=== PATIENT | male | born 1955 | race American Indian/Alaskan Native ===

== ENCOUNTER 2016-10-07 15:36 | Inpatient (IN) | payer OTHER ==
[2016-10-07 17:30] LABS: Basophils % (Auto) 0.3 % (0.0-1.8); Eosinophils % (Auto) 0.3 % (0.0-4.3); Hematocrit 24.4 % (35.5-45.6); Hemoglobin 8.1 gm/dl (11.8-15.2); Mean Corpuscular HGB Conc 33 % (32-34); Mean Corpuscular Volume 75 fl (84-94); Platelet Count 263 K/mm3 (140-440); Red Blood Count 3.26 M/mm3 (3.65-5.03); Red Cell Distribution Width 15.3 % (13.2-15.2); White Blood Count 16.6 K/mm3 (4.5-11.0)
[2016-10-07 17:33] LABS: Mean Corpuscular Hemoglobin 25 pg (28-32)
[2016-10-07 17:51] LABS: Albumin 2.7 g/dL (3.9-5); Albumin/Globulin Ratio 0.5 %; BUN/Creatinine Ratio 21.42; Bilirubin,Total 1.7 mg/dL (0.1-1.2); Calcium 8.5 mg/dL (8.4-10.2); Chloride 88.1 mmol/L (98-107); Potassium 3.7 mmol/L (3.6-5.0); Total Protein 8.4 g/dL (6.3-8.2)
--- NOTE | 2016-10-07 17:53 | Emergency Department Report ---
Entered by PAT MCKOY, acting as scribe for NATAN CRANDALL NP. Stated Complaint: PAINFUL WHEN URINE Time Seen by Provider: 10/07/16 17:11 - HPI History of Present Illness: 61 y/o male presents with dysuria and inability to control bowel movements that started 3 weeks ago. Sx include fever and chills but pt denies weakness, cough, rash or swelling of the penis. - ROS Review of Systems: -swelling or rash of penis -weakness -cough +inability to control BM's during urination +dysuria + weight loss - Exam Vital Signs: Vital Signs 10/07/16 17:11 Temperature 98.1 F Pulse Rate 100 H Respiratory 18 Rate Blood Pressure 116/63 O2 Sat by Pulse 99 Oximetry Physical Exam: thin male Back: no vertebral tenderness from exam well seated in a wheelchair MSE screening note: Focused history and physical exam performed. Due to findings the following was ordered: labs Patient [facility] Medical Decision Making - Lab Data Result diagrams: 10/07/16 17:20 ED Disposition for MSE Condition: Stable This documentation as recorded by the scribe,PAT MCKOY,accurately reflects the service I personally performed and the decisions made by KARLEY adam TRACY M, NP.
--- NOTE | 2016-10-07 20:08 | Ultrasound Report ---
FINAL REPORT PROCEDURE: US ABDOMEN LIMITED TECHNIQUE: Real-time sonography was performed of the right upper quadrant of the abdomen with image documentation. CPT 61583 HISTORY: elevated lfts, wt loss COMPARISON: No prior studies are available for comparison. FINDINGS: Right kidney measures 11.9 cm in length and displays no abnormalities. Pancreas poorly visualized due to bowel gas. Abdominal aorta appears normal in size proximally. No hepatic abnormality is seen. Large gallstone is seen with sludge. Gallbladder wall appears thickened measuring 2.7 millimeters. No pericholecystic fluid is seen. Common bile duct is normal in size. IMPRESSION: Cholelithiasis is seen with possible changes of cholecystitis. No biliary ductal dilation is seen.
[2016-10-07] MEDS ORDERED: NACL ONE ×2 (20:35→22:18)
[2016-10-07] MEDS ORDERED: NACL 0.9% 1000 ML 1,000 ML IV ONE (21:31)
--- NOTE | 2016-10-07 23:12 | Cat Scan Report ---
FINAL REPORT PROCEDURE: CT ABDOMEN PELVIS W CON TECHNIQUE: Computerized axial tomography of the abdomen and pelvis was performed after the IV injection of iodinated nonionic contrast. HISTORY: RUQ abdominal pain, pelvic pain cholelithiasis COMPARISON: Ultrasound from the same day FINDINGS: Liver and spleen are top normal limits in size. Gallbladder appears distended. Gallstone seen on ultrasound is not seen on this study. No definite gallbladder wall thickening is seen. There is mild intrahepatic biliary ductal dilation. Likely mild dilation of the common hepatic duct is seen with normal size common bile duct. Common hepatic duct and proximal intrahepatic ducts appears slightly hazy with prominent sloan, which raises concern for possible cholangitis or cholangiocarcinoma. Correlation with MRCP or ERCP is recommended. Pancreas appears normal. Adrenal glands and abdominal aorta are normal in size. Benign cysts are seen in the kidneys but there is moderate left-sided hydronephrosis. The left ureter is prominently dilated into the pelvis. There is a very large irregular appearing mass in the pelvis. It is difficult to measure the size of the mass but it is approximately 10.9 x 8.0 cm in size. Mass is closely associated with the rectosigmoid colon which has questionable wall thickening. Direct spread of colon malignancy is a possibility but would be an unusual appearance. Soft tissue sarcoma could cause this appearance. Bladder or ureteral malignancy are not completely excluded. There is bladder wall thickening posteriorly and large bladder stone measuring 4.6 cm in greatest dimension. The mass abuts the posterior aspect of the bladder. No evidence of bowel obstruction is seen. Prostate gland appears normal in size. IMPRESSION: Large heterogeneous mass is seen in the pelvis and is closely associated with the posterior aspect of the urinary bladder and the rectosigmoid colon. Spread of bladder or ureteral malignancy or spread of colonic malignancy could cause the appearance. However, consideration should be given to soft tissue sarcoma or more distant metastatic disease. Correlation with biopsy is recommended. Prominent left-sided hydronephrosis is seen secondary to the mass obstructing the distal left ureter. There is mild dilation of the intrahepatic biliary ducts and proximal hepatic duct without an obstructing cause being identified. The ducts appears slightly hazy with thick sloan in the violet hepatitis and consideration should be given to cholangitis or cholangiocarcinoma. No biliary stones are identified.
--- NOTE | 2016-10-07 23:59 | Emergency Department Report ---
HPI - General Chief Complaint: Abdominal Pain Time Seen by Provider: 10/07/16 22:11 - HPI HPI: The patient's is 61-year-old male who presents for evaluation of severe abdominal pain. The patient reports abdominal pain past 2-3 weeks, worsened over the past 1 week, constant and severe for the past 24 hours, 10/10 in severity, pressure-like and throbbing in quality, and exacerbated with attempted micturition or defecation. He also reports recent difficulty urinating and multiple episodes of loose watery stools for the past 1-2 weeks. The patient denies fever, chills, night sweats, diarrhea, blood in the stool, dark tarry stool, flank pain, genital discharge, inability to pass flatus. ED Past Medical Hx - Past Medical History Previous Medical History?: No - Social History Smoking Status: Former Smoker Substance Use Type: None ED Review of Systems ROS: Stated complaint: PAINFUL WHEN URINE Other details as noted in HPI Constitutional: denies: fever ENT: denies: throat or neck pain Respiratory: denies: cough, shortness of breath Cardiovascular: denies: chest pain Endocrine: denies unexplained weight loss or gain Gastrointestinal: reports abdominal pain, nausea Genitourinary: denies: dysuria Musculoskeletal: denies: leg swelling Skin: denies: rash Neurological: denies: headache Hematological/Lymphatic: denies: easy bleeding or easy bruising Psych: denies sadness or hopelessness Physical Exam - Physical Exam Vital Signs: Vital Signs 10/07/16 17:11 Temperature 98.1 F Pulse Rate 100 H Respiratory 18 Rate Blood Pressure 116/63 O2 Sat by Pulse 99 Oximetry Physical Exam: General: well-nourished, well-developed, no acute distress Head: Normocephalic, atraumatic Eyes: normal sclera ENT: Mucous membranes are pale and dry Neck: No neck stiffness, no cervical adenopathy Respiratory: Breath sounds equal bilaterally, no wheezing, rales, or rhonchi Cardio: S1 and S2 present, no murmurs, rubs, gallops, capillary refill is delayed Abdomen: Normoactive bowel sounds, soft abdomen, suprapubic and periumbiclical tenderness to palpation present, no rigidity, no guarding or rebound tenderness Musc: No pitting edema Skin: No rash Neuro: no facial drooping, normal speech Psych: Normal affect ED Course Vital Signs 10/07/16 17:11 Temperature 98.1 F Pulse Rate 100 H Respiratory 18 Rate Blood Pressure 116/63 O2 Sat by Pulse 99 Oximetry ED Medical Decision Making - Lab Data Result diagrams: 10/07/16 17:20 10/07/16 17:20 - Medical Decision Making The patient was seen and examined by myself. The patient is placed on a print binding worker and continuous pulse ox. On initial evaluation, the patient was found to be in no distress. Evaluation orders were placed. The patient is given 1 L normal saline fluid bolus as sfor txt of dehydration, and IV morphine for txt of pain. Lab results revealed leukocytosis, WBC 16, elevated urine WBC , positive leukocyte esterase, consistent with urinary tract infection. Levaquin is ordered fro txt of UTI. CT scan abdomen and pelvis reveals potential colon mass, extending into the bladder and urethral, causing compression on the ureter and hydronephrosis. There is also hepatic findings suggestive of cholangiocarcinoma versus cholangitis. The on-call hospitalist service was contacted. They agreed to admit the patient for further treatment and close monitoring. The ED admit order was placed. The patient was admitted in guarded condition. Critical care attestation.: If time is entered above; I have spent that time in minutes in the direct care of this critically ill patient, excluding procedure time. ED Disposition Clinical Impression: ALISE (acute kidney injury), Dehydration, Abdominal pain, acute, bilateral lower quadrant, Mass of colon, Acute UTI (urinary tract infection) Hydronephrosis Qualifiers: Hydronephrosis type: unspecified Qualified Code(s): N13.30 - Unspecified hydronephrosis Disposition: OP ADMIT IP TO THIS HOSP Is pt being admited?: Yes Does the pt Need Aspirin: Yes Condition: Serious Time of Disposition: 23:48
--- NOTE | 2016-10-08 00:11 | History and Physical Report ---
History of Present Illness Chief complaint: My stomach hurts, and i have loose stools History of present illness: 61 YO Male with No PMH presents to ED for evaluation. Pt states that he has experienced abdominal pain for the past 3 weeks with worsening symptoms over the past 1 day, as well as loose watery stools over the past 1 week. Pt acknowledges 15 lbs unintentional weight loss, weakness, subjective fever, and night sweats. Pt states pain in 10/10, worsened with stool, constant, nonradiating, generalized, throbbing in nature. Pt denies ingestion of food or water from new or different sources, blood in stool, or constipation. Pt denies past colonscopy Past History Past Medical History: No medical history, other (reviewed) Past Surgical History: No surgical history, Other (reviewed) Social history: single. denies: smoking, alcohol abuse, prescription drug abuse Family history: hypertension Medications and Allergies Allergies Allergy/AdvReac Type Severity Reaction Status Date / Time No Known Allergies Allergy Verified 10/07/16 20:36 Review of Systems All systems: negative Constitutional: weight loss, fever, night sweats, no weight gain Ears, nose, mouth and throat: no ear pain Cardiovascular: no chest pain Respiratory: no cough Gastrointestinal: abdominal pain Genitourinary Male: no flank pain Rectal: no pain Musculoskeletal: no neck stiffness Integumentary: no rash Neurological: no head injury Psychiatric: no anxiety Endocrine: no heat intolerance Hematologic/Lymphatic: no easy bruising Allergic/Immunologic: no urticaria Exam - Constitutional Vitals: Temp Pulse Resp BP Pulse Ox 98.1 F 100 H 18 116/63 99 10/07/16 17:11 10/07/16 17:11 10/07/16 17:11 10/07/16 17:11 10/07/16 17:11 General appearance: Present: mild distress, cachectic, disheveled - EENT Eyes: Present: PERRL ENT: hearing intact, clear oral mucosa - Neck Neck: Present: supple, normal ROM - Respiratory Respiratory effort: normal Respiratory: bilateral: CTA - Cardiovascular Heart Sounds: Present: S1 & S2. Absent: rub, click - Extremities Extremities: pulses symmetrical, No edema Peripheral Pulses: within normal limits - Abdominal General gastrointestinal: Present: soft, tender, non-distended, normal bowel sounds. Absent: hepatomegaly, splenomegaly Localized gastrointestinal: tender: diffuse Male genitourinary: Present: normal - Integumentary Integumentary: Present: clear, warm, dry - Musculoskeletal Musculoskeletal: gait normal, strength equal bilaterally - Psychiatric Psychiatric: appropriate mood/affect, intact judgment & insight - Neurologic Neurologic: CNII-XII intact, moves all extremities Results - Labs CBC & Chem 7: 10/07/16 17:20 10/07/16 17:20 Labs: Abnormal lab results 10/07/16 10/07/16 Range/Units 17:20 17:20 WBC 16.6 H (4.5-11.0) K/mm3 RBC 3.26 L (3.65-5.03) M/mm3 Hgb 8.1 L (11.8-15.2) gm/dl Hct 24.4 L (35.5-45.6) % MCV 75 L (84-94) fl MCH 25 L (28-32) pg RDW 15.3 H (13.2-15.2) % Lymph % (Auto) 6.0 L (13.4-35.0) % Hardy % (Auto) 11.4 H (0.0-7.3) % Lymph # 1.0 L (1.2-5.4) K/mm3 Hardy # 1.9 H (0.0-0.8) K/mm3 Seg Neutrophils % 82.0 H (40.0-70.0) % Seg Neutrophils # 13.6 H (1.8-7.7) K/mm3 Sodium 128 L (137-145) mmol/L Chloride 88.1 L (98-107) mmol/L BUN 30 H (9-20) mg/dL Glucose 118 H (75-100) mg/dL Total Bilirubin 1.70 H (0.1-1.2) mg/dL AST 57 H (5-40) units/L Alkaline Phosphatase 269 H (35-129) units/L Total Protein 8.4 H (6.3-8.2) g/dL Albumin 2.7 L (3.9-5) g/dL Assessment and Plan - Patient Problems (1) Sepsis Current Visit: Yes Status: Acute Qualifiers: Sepsis type: S Plan to address problem: Sepsis Protocol: IV abx, ivf, supportive care, blood cultures, serial lactate, monitor uop q shift (2) Colon cancer Current Visit: Yes Status: Suspected Qualifiers: Colon location: C Plan to address problem: GI consulted, endoscopy as per GI, (3) Anemia Current Visit: Yes Status: Acute Qualifiers: Anemia type: iron deficiency Iron deficiency anemia type: chronic blood loss Vitamin B12 deficiency anemia type: V Folate deficiency anemia type: F Bone marrow failure anemia type: B Hemolytic anemia type: H Other causes of anemia: O Chronic kidney disease stage: C Qualified Code(s): D50.0 - Iron deficiency anemia secondary to blood loss (chronic) Plan to address problem: Monitor CBC, No transfusion at this time, (4) Peritonitis Current Visit: Yes Status: Acute Plan to address problem: IV abx, IVF, supportive care, serial abdominal exam, CT abdomen pelvis, (5) DVT prophylaxis Current Visit: Yes Status: Acute
[2016-10-08] MEDS ORDERED: NACL 0.9% 1000 ML IV ONE (00:12)
[2016-10-08] MEDS ORDERED: ZOFRAN IV PRN (00:12)
[2016-10-08] MEDS ORDERED: PROVENTIL IH PRN (00:12)
[2016-10-08] MEDS ORDERED: VANCOMYCIN VIAL IV ONE (00:12)
[2016-10-08] MEDS ORDERED: BABY ASPIRIN PO ONE (00:17)
[2016-10-08] MEDS ORDERED: NACL 0.9% 1000 ML 1,000 ML IV ONE (00:18)
[2016-10-08] MEDS ORDERED: ZOFRAN IV ONE (00:18)
[2016-10-08] MEDS ORDERED: MORPHINE IV ONE (00:18)
[2016-10-08 00:38] LABS: Bacteria,Urine 1+ /HPF (Negative); Bilirubin,Urine NEG (Negative); Blood,Urine MOD (Negative); Ketones,Urine NEG (Negative); Leukocyte Esterase,Urine LG (Negative); Mucus,Urine 1+ /HPF; Nitrite,Urine NEG (Negative)
[2016-10-08] MEDS ORDERED: VANCOMYCIN IV ONE (00:42)
[2016-10-08] MEDS ORDERED: NS IV ONE (00:42)
[2016-10-08] MEDS ORDERED: BABY ASPIRIN ONE (00:42)
[2016-10-08] MEDS ORDERED: NACL 0.9% 1000 ML 2,000 ML ONE (00:42)
[2016-10-08] MEDS ORDERED: MORPHINE ONE (00:59)
[2016-10-08] MEDS ORDERED: ZOFRAN ONE (00:59)
[2016-10-08] MEDS ORDERED: VANCOMYCIN PHARMACY TO DOSE IV SCH (01:00)
[2016-10-08] MEDS ORDERED: LEVAQUIN 500MG/100ML 500 MG/100 ML BAG IV ONE (01:08)
[2016-10-08] MEDS ORDERED: VANCOMYCIN 1,500 MG in NACL 0.9% 500 ML 500 ML IV ONE (02:00)
[2016-10-08] MEDS: ZOSYN/NS 4.5GM/100ML 4.5 GM/100 ML VIAL IV SCH ×3 (06:57→21:45)
[2016-10-08] MEDS: D5/0.45NS 1,000 ML IV SCH (06:58)
--- NOTE | 2016-10-08 07:11 | Admit Criteria Form ---
Admission Criteria Documentation: ABDOMINAL PAIN Clinical Indications for Admission to Inpatient Care (Place 'X' for any and all applicable criteria): Admission is indicated for ANY ONE of the following(1)(2)(3)(4)(5): [X ]I. Inpatient admission required rather than observation care (Also use Abdominal Pain: Observation Care, as appropriate) because of ANY ONE of the following: [ ]a) Severe pain requiring acute inpatient management [X ]b) Identification of etiology/finding that requires inpatient care (eg, aortic dissection, free air) [ ]c) Absent bowel sounds with complete ileus(6) [ ]d) Suspected toxic megacolon [ ]e) Severe electrolyte abnormalities requiring inpatient care [ ]f) High fever or infection requiring inpatient admission as indicated by ANY ONE of following(7)(8): [ ] i) Appropriate outpatient or observational care antimicrobial treatment unavailable, not effective, or not feasible [ ] ii) Documented bacteremia [ ] iii) Temperature > 104.9 degrees F (oral) [ ] iv) T >103.1 F (oral) or < 96.8 F(rectal) that does not respond to all emergency treatment measures [ ]g) Signs of intestinal obstruction [B] [ ]h) Hemodynamic instability [ ]i) IV fluid to replace significant ongoing losses (greater than 3 L/m2 per day) (12)(13) [ ]j) Percutaneous or open drainage (eg, abscess, biliary tract ) procedures [ ]k) Parenteral nutrition regimen that must be implemented on inpatient basis [X ]l) Other condition,treatment or monitoring requiring inpatient admission. [ ]II. Peritoneal signs present [ ]III. Surgery needed that cannot be performed on an ambulatory basis. [ ]IV. Evaluation requires patient to not eat or drink for extended period ( eg, more than 24 hours). [ ]V. Contraindications and/or Inappropriate clinical situations for Observational Care in patients with abdominal pain, when ANY ONE of the following is required: [ ]a) Thorough evaluation is required to prevent catastrophic events due to delays in diagnosing (e.g.Mesenteric ischemia) 1,3 [ ]b) Patient with severe pathology or with chronic symptoms unlikely to improve in the ED stay (3) [ ]. General contraindications and/or Inappropriate clinical situations for Observational Care in patients with abdominal pain, when ANY ONE of the following is required: [ ]a) Prediction of prolongation of LOS based on ANY ONE of the following may be considered as a contraindication for observational care 2, 3, 4, 5, 6, 7, 8, 9, 10, 11 [ ]i) Age > 65 yrs. [ ]ii) Patient arriving by ambulance [ ]iii) Patient with high acuity [ ]iv) Patient requiring vital sign monitoring [ ]v) Patient on IV medication [ ]b) Systolic blood pressures 180mmHg 3,12 [ ]c) Patient with altered mental status including delirium and other alteration of consciousness, (3) [ ]d) Patient whose discharge disposition will be to a [facility] home or rehabilitation home should not be managed in Emergency Department Observation Unit. CMS rule requires 3 days hospital stay before such placement.3,13 [ ]e) Patient with failure to thrive due to broad array of etiologies 3,16,17 [ ]f) Inability to ambulate 3,14 Extended stay beyond goal length of stay may be needed for(2)(3): [ ]a) Persistent abdominal pain with suspected intra-abdominal process [ ]b) Diagnosed condition requiring continued stay (e.g., pancreatitis, complicated diverticulitis) [ ]c) Surgery (e.g., colectomy) The original [facility] content created by [employer] has been revised. The portions of the content which have been revised are identified through the use of italic text or in bold, and [facility] has neither reviewed nor approved the modified material.All other unmodified content is copyright [facility]. Please see references footnoted in the original [facility] edition 2016 Admission Criteria Met: Yes
[2016-10-08] MEDS ORDERED: GOLYTELY PO ONE (11:43)
--- NOTE | 2016-10-08 12:00 | Gastroenterology Consultation ---
<SACHIN KRISHNA - Last Filed: 10/08/16 12:17> History of Present Illness - Reason for Consult Consult date: 10/08/16 possible colon cancer Requesting physician: GRECIA LITTLE - History of Present Illness Patient is a 61 y/o male who presented to the ER with abd pain, loose stools, weakness, fever, night sweats, and 15lb unintentional wt loss x 3 weeks. Pt with no PMH. CT scan revealed a large pelvic mass (possible spread of bladder malignancy vs spread of colonic malignancy). This morning pt was resting in bed , no acute distress. States he quit smoking approximately 3 to 4 weeks ago and then developed above symptoms. His abd pain is generalized across lower abdomen and has improved with pain medication. He also admits to intermittent BRBPR with BMs, fecal incontinence, and dysuria. Denies CP, SOB, dizziness, jaundice, N/V, hematemesis, melena, diarrhea, or constipation. No previous colonoscopy. No known Fhx of colon CA. No hx of ETOH abuse. Smoker for approximately 40 years but recently quit 3 weeks ago. No known hx or Fhx of liver disease. Past History Past Medical History: No medical history, other (reviewed) Past Surgical History: No surgical history, Other (reviewed) Social history: single. denies: smoking, alcohol abuse, prescription drug abuse Family history: hypertension Medications and Allergies Allergies Allergy/AdvReac Type Severity Reaction Status Date / Time No Known Allergies Allergy Verified 10/07/16 20:36 Active Meds: Active Medications Acetaminophen (Tylenol) 650 mg PO Q4H PRN PRN Reason: Pain MILD(1-3)/Fever >100.5/THOMAS Albuterol (Proventil) 2.5 mg IH Q4HRT PRN PRN Reason: Shortness Of Breath Dextrose/Sodium Chloride (D5/0.45ns) 1,000 mls @ 75 mls/hr IV DIRECT JÚNIOR Last Admin: 10/08/16 06:58 Dose: 75 mls/hr Piperacillin Sod/Tazobactam Sod (Zosyn/Ns 4.5gm/100ml) 4.5 gm in 100 mls @ 200 mls/hr IV Q8HR J[facility] PRN Reason: Protocol Last Admin: 10/08/16 06:57 Dose: 200 mls/hr Vancomycin HCl 1,250 mg/ (Sodium Chloride) 275 mls @ 166.667 mls/hr IV Q18H J[facility] Ondansetron HCl (Zofran) 4 mg IV Q8H PRN PRN Reason: N/V unrelieved by Reglan Polyethylene Glycol/Electrolytes (Golytely) 4,000 ml PO ONCE ONE Stop: 10/08/16 11:44 Vancomycin HCl (Vancomycin Pharmacy To Dose) 1 each IV PKCONSULT JÚNIOR PRN Reason: Protocol Review of Systems - Review of Systems All systems: negative Constitutional: weight loss, fever, weakness, other (night sweats) Gastrointestinal: abdominal pain, change in bowel habits (loose stool), hematochezia, other (fecal incontinence) Male Genitourinary: other (dysuria) Exam - Constitutional Vital Signs: Temp Pulse Resp BP Pulse Ox 98.3 F 90 18 128/72 97 10/08/16 08:00 10/08/16 08:00 10/08/16 08:00 10/08/16 08:00 10/08/16 08:00 General appearance: no acute distress, malodorous, other (thin appearing) - EENT Eyes: PERRL, EOM intact ENT: hearing intact - Neck Neck: normal ROM - Respiratory Respiratory: bilateral: diminished (anterior) - Cardiovascular Rhythm: regular Heart Sounds: Present: S1 & S2 Extremities: No edema - Gastrointestinal General gastrointestinal: Present: soft, tender (generalized), non-distended, normal bowel sounds - Integumentary Integumentary: Present: warm, dry - Neurologic Neurological: alert and oriented x3 - Psychiatric Psychiatric: appropriate mood/affect, cooperative - Labs CBC & Chem 7: 10/07/16 17:20 10/07/16 17:20 Lab Results: Laboratory Results - last 24 hr 10/08/16 10/08/16 10/08/16 00:30 03:18 06:19 Lactic Acid 0.90 1.10 Blood Type O POSITIVE Antibody Screen TNR DANGELO Antibody Screen Negative Assessment and Plan 1. possible colon cancer 2. sepsis 3. anemia -WBC 16.6 -HGB 8.1 -plt 263 -T. sharad 1.70, AST 57, ALT 42 -CT scan revealed- large heterogeneous mass in the pelvis (possible spread of bladder/ureteral malignancy vs colonic malignancy) and possible cholangitis vs cholangiocarcinoma -continue to monitor H&H and transfuse as needed -no active signs of bleeding overnight or this am -continue supportive care with IVFs, pain management, and f/u labs -will order a MRCP -will order PT/INR -clear liquids today after MRCP, then NPO after MN -will schedule for colonoscopy in am -consult to oncology placed -will follow <KATHY CHEEK - Last Filed: 10/09/16 08:18> Medications and Allergies Active Meds: Active Medications Acetaminophen (Tylenol) 650 mg PO Q4H PRN PRN Reason: Pain MILD(1-3)/Fever >100.5/THOMAS Last Admin: 10/08/16 18:41 Dose: 650 mg Albuterol (Proventil) 2.5 mg IH Q4HRT PRN PRN Reason: Shortness Of Breath Dextrose/Sodium Chloride (D5/0.45ns) 1,000 mls @ 75 mls/hr IV DIRECT JÚNIOR Last Admin: 10/09/16 02:27 Dose: 75 mls/hr Piperacillin Sod/Tazobactam Sod (Zosyn/Ns 4.5gm/100ml) 4.5 gm in 100 mls @ 200 mls/hr IV Q8HR [facility] PRN Reason: Protocol Last Admin: 10/09/16 08:06 Dose: 200 mls/hr Vancomycin HCl 1,250 mg/ (Sodium Chloride) 275 mls @ 166.667 mls/hr IV Q18H [facility] Last Admin: 10/08/16 21:45 Dose: 166.667 mls/hr Morphine Sulfate (Morphine) 2 mg IV Q4H PRN PRN Reason: Pain, Moderate (4-6) Last Admin: 10/08/16 23:19 Dose: 2 mg Ondansetron HCl (Zofran) 4 mg IV Q8H PRN PRN Reason: N/V unrelieved by Gerardo Vancomycin HCl (Vancomycin Pharmacy To Dose) 1 each IV PKCONSULT JÚNIOR PRN Reason: Protocol Exam - Constitutional Vital Signs: Temp Pulse Resp BP Pulse Ox 99.7 F H 74 18 109/66 97 10/09/16 07:00 10/09/16 07:00 10/09/16 07:00 10/09/16 07:00 10/09/16 07:00 - Labs CBC & Chem 7: 10/09/16 05:48 08/02/17 05:48 Lab Results: Laboratory Results - last 24 hr 10/08/16 10/08/16 10/08/16 12:10 12:25 21:20 WBC 12.5 H RBC 2.87 L Hgb 7.3 L Hct 21.8 L MCV 76 L MCH 25 L MCHC 33 RDW 15.2 Plt Count 241 Lymph % (Auto) 4.4 L [place] % (Auto) 8.3 H Eos % (Auto) 1.2 Baso % (Auto) 0.3 Lymph # 0.5 L Levy # 1.0 H Eos # 0.1 Baso # 0.0 Seg Neutrophils % 85.8 H Seg Neutrophils # 10.7 H ESR > 140.0 PT INR Sodium 134 L Potassium 3.7 Chloride 96.8 L Carbon Dioxide 24 Anion Gap 17 BUN 28 H Creatinine 1.1 Estimated GFR > 60 BUN/Creatinine Ratio 25.45 Glucose 118 H Calcium 8.0 L Iron TIBC Ferritin Lactate Dehydrogenase HIV 1&2 Antibody Rapid Non react HIV P24 Antigen Non react 10/08/16 10/08/16 10/08/16 21:29 21:29 21:31 WBC RBC Hgb Hct MCV MCH MCHC RDW Plt Count Lymph % (Auto) [place] % (Auto) Eos % (Auto) Baso % (Auto) Lymph # Levy # Eos # Baso # Seg Neutrophils % Seg Neutrophils # ESR PT INR Sodium Potassium Chloride Carbon Dioxide Anion Gap BUN Creatinine Estimated GFR BUN/Creatinine Ratio Glucose Calcium Iron 16 L TIBC 89 L Ferritin 1101.0 H Lactate Dehydrogenase 157 HIV 1&2 Antibody Rapid HIV P24 Antigen 10/09/16 10/09/16 10/09/16 05:48 05:48 05:48 WBC 13.6 H RBC 2.78 L Hgb 7.0 L Hct 21.0 L MCV 76 L MCH 25 L MCHC 33 RDW 15.5 H Plt Count 253 Lymph % (Auto) 6.9 L [place] % (Auto) 12.3 H Eos % (Auto) 1.2 Baso % (Auto) 0.4 Lymph # 0.9 L Levy # 1.7 H Eos # 0.2 Baso # 0.1 Seg Neutrophils % 79.2 H Seg Neutrophils # 10.8 H ESR PT 16.6 H INR 1.35 H Sodium 135 L Potassium 3.2 L Chloride 98.7 Carbon Dioxide 23 Anion Gap 17 BUN 23 H Creatinine 0.9 Estimated GFR > 60 BUN/Creatinine Ratio 25.55 Glucose 119 H Calcium 8.1 L Iron TIBC Ferritin Lactate Dehydrogenase HIV 1&2 Antibody Rapid HIV P24 Antigen Assessment and Plan Patient seen and examined on 10/08. Agree with note by Sachin Krishna. Patient with suspected metastatic neoplastic process of unknown primary. + 30-40 lb weight loss in last few months. He reports lower abdominal discomfort, with occasional hematuria and hematochezia. Will plan for colonoscopy tomorrow with biopsies to help determine primary lesion. Heme/onc consult once path obtained. Further recommendations following colonoscopy.
[2016-10-08 12:53] LABS: Basophils % (Auto) 0.3 % (0.0-1.8); Eosinophils % (Auto) 1.2 % (0.0-4.3); Hematocrit 21.8 % (35.5-45.6); Hemoglobin 7.3 gm/dl (11.8-15.2); Mean Corpuscular HGB Conc 33 % (32-34); Mean Corpuscular Volume 76 fl (84-94); Platelet Count 241 K/mm3 (140-440); Red Blood Count 2.87 M/mm3 (3.65-5.03); Red Cell Distribution Width 15.2 % (13.2-15.2); White Blood Count 12.5 K/mm3 (4.5-11.0)
[2016-10-08 12:56] LABS: Mean Corpuscular Hemoglobin 25 pg (28-32)
[2016-10-08 13:14] LABS: BUN/Creatinine Ratio 25.45; Blood Urea Nitrogen 28 mg/dL (9-20); Carbon Dioxide 24 mmol/L (22-30); Glucose 118 mg/dL (75-100)
[2016-10-08 13:15] LABS: Anion Gap 17 mmol/L; Chloride 96.8 mmol/L (98-107); Potassium 3.7 mmol/L (3.6-5.0); Sodium 134 mmol/L (137-145)
--- NOTE | 2016-10-08 13:47 | Event Note ---
Date: 10/08/16 61-year-old male admitted for GI bleed, pelvic malignancy, anemia, GI and oncology consulted. H&P was done this morning and have revised the chart, labs and evaluated the patient. Patient doesn't progress note today.
[2016-10-08] MEDS ORDERED: VANCOMYCIN/NS 1 GM/250 ML 1 GM/250 ML BAG IV SCH (14:00)
--- NOTE | 2016-10-08 15:49 | Magnetic Resonance Report ---
MR ABDOMEN MRCP History: Cholangitis, cholangiocarcinoma, pain. Findings: A very limited MRI exam is presented with excessive patient motion and breathing motion artifact. There is no gross liver mass. There is indistinct increased T2 signal in the right hepatic lobe which appears to follow the course of the biliary ducts. This could represent cholangitis. No discrete mass to suggest cholangiocarcinoma. There is cholelithiasis and a mildly dilated gallbladder. The common bile duct is normal caliber measuring 4 mm. The pancreas is unremarkable. The right kidney is within normal limits. 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 No focal renal lesion. The bowel loops are incompletely visualized. There is no suggestion of bowel obstruction. The aorta is normal caliber. No bulky abdominal adenopathy is appreciated. Impression: Severely limited exam. Cholangitis could be considered. Left hydronephrosis. Cholelithiasis.
[2016-10-08] MEDS: TYLENOL PO PRN (18:41)
--- NOTE | 2016-10-08 21:03 | Consultation ---
History of Present Illness - Reason for Consult Consult date: 10/08/16 Pelviv mass Requesting physician: RIA MACK - History of Present Illness Thank you for this consult, patient seen/examined, record reviewed, case d/w patient, and claims he is unaware of any mass/tumor in his pelvis He did report of Rectal bleed, and significant wt loss. he has been having both B/B incontinence.Ct have revealed a large pelvis/sigmoid colon mass/bladder wall thickening.He is appropriately scheduled for colonoscopy with biopsy tomorrow.Will await path report once biopsy is don.Meanwhile, will check some tumor markers.He may need some blood replacement before, or if/when surgery is planned.Needs nutrition support. Past History Past Medical History: No medical history, other (reviewed) Past Surgical History: No surgical history, Other (reviewed) Social history: single. denies: smoking, alcohol abuse, prescription drug abuse Family history: hypertension Medications and Allergies Allergies Allergy/AdvReac Type Severity Reaction Status Date / Time No Known Allergies Allergy Verified 10/07/16 20:36 Active Meds: Active Medications Acetaminophen (Tylenol) 650 mg PO Q4H PRN PRN Reason: Pain MILD(1-3)/Fever >100.5/THOMAS Last Admin: 10/08/16 18:41 Dose: 650 mg Albuterol (Proventil) 2.5 mg IH Q4HRT PRN PRN Reason: Shortness Of Breath Dextrose/Sodium Chloride (D5/0.45ns) 1,000 mls @ 75 mls/hr IV DIRECT JÚNIOR Last Admin: 10/08/16 06:58 Dose: 75 mls/hr Piperacillin Sod/Tazobactam Sod (Zosyn/Ns 4.5gm/100ml) 4.5 gm in 100 mls @ 200 mls/hr IV Q8HR [facility] PRN Reason: Protocol Last Admin: 10/08/16 13:36 Dose: 200 mls/hr Vancomycin HCl 1,250 mg/ (Sodium Chloride) 275 mls @ 166.667 mls/hr IV Q18H [facility] Ondansetron HCl (Zofran) 4 mg IV Q8H PRN PRN Reason: N/V unrelieved by Reglan Vancomycin HCl (Vancomycin Pharmacy To Dose) 1 each IV PKCONSULT JÚNIOR PRN Reason: Protocol Review of Systems Constitutional: weight loss, anorexia, weakness Rectal: bleeding Exam - Constitutional Vitals: Temp Pulse Resp BP Pulse Ox 98.5 F 98 H 18 134/74 97 10/08/16 17:00 10/08/16 17:00 10/08/16 17:00 10/08/16 17:00 10/08/16 17:00 General appearance: Present: mild distress - EENT Eyes: Present: PERRL ENT: hearing intact, clear oral mucosa - Neck Neck: Present: supple, normal ROM - Respiratory Respiratory effort: normal Respiratory: bilateral: CTA - Cardiovascular Heart Sounds: Present: S1 & S2. Absent: rub, click - Extremities Extremities: pulses symmetrical, No edema Peripheral Pulses: within normal limits - Abdominal General gastrointestinal: Present: soft, non-tender, non-distended, normal bowel sounds Male genitourinary: Present: deferred - Rectal Rectal Exam: deferred - Integumentary Integumentary: Present: clear, warm, dry - Musculoskeletal Musculoskeletal: gait normal, strength equal bilaterally - Psychiatric Psychiatric: appropriate mood/affect, intact judgment & insight - Neurologic Neurologic: CNII-XII intact, moves all extremities Results - Labs CBC & Chem 7: 10/08/16 12:25 10/08/16 12:10 Labs: Abnormal lab results 10/08/16 10/08/16 Range/Units 12:10 12:25 WBC 12.5 H (4.5-11.0) K/mm3 RBC 2.87 L (3.65-5.03) M/mm3 Hgb 7.3 L (11.8-15.2) gm/dl Hct 21.8 L (35.5-45.6) % MCV 76 L (84-94) fl MCH 25 L (28-32) pg Lymph % (Auto) 4.4 L (13.4-35.0) % [place] % (Auto) 8.3 H (0.0-7.3) % Lymph # 0.5 L (1.2-5.4) K/mm3 [place] # 1.0 H (0.0-0.8) K/mm3 Seg Neutrophils % 85.8 H (40.0-70.0) % Seg Neutrophils # 10.7 H (1.8-7.7) K/mm3 Sodium 134 L (137-145) mmol/L Chloride 96.8 L (98-107) mmol/L BUN 28 H (9-20) mg/dL Glucose 118 H (75-100) mg/dL Calcium 8.0 L (8.4-10.2) mg/dL Assessment and Plan - Patient Problems (1) Abdominal pain, acute, bilateral lower quadrant Current Visit: Yes Status: Acute Plan to address problem: This is due to the mass effect. (2) Anemia Current Visit: Yes Status: Acute Qualifiers: Anemia type: iron deficiency Iron deficiency anemia type: chronic blood loss Vitamin B12 deficiency anemia type: V Folate deficiency anemia type: F Bone marrow failure anemia type: B Hemolytic anemia type: H Other causes of anemia: O Chronic kidney disease stage: C Qualified Code(s): D50.0 - Iron deficiency anemia secondary to blood loss (chronic) Plan to address problem: Replacement when indicated. (3) Mass of colon Current Visit: Yes Status: Acute Plan to address problem: await colonoscopy with tissue bx, then path report.
[2016-10-08] MEDS ORDERED: VANCOMYCIN 1,250 MG in NACL 0.9% 250ML 250 ML IV SCH (22:00)
[2016-10-08 22:07] LABS: Erythrocyte Sedimentation Rate > 140.0 mm/Hr (0-20)
[2016-10-08 22:07] LABS: Iron 16 ug/dL (49-181); Total Iron Binding Capacity 89 mcg/dL (250-450)
[2016-10-08 22:42] LABS: HIV-1 Antigen p24 Non React (Non React); HIVR-1/2 Ab Non React (Non React)
[2016-10-08] MEDS: MORPHINE IV PRN (23:19)
[2016-10-09] MEDS: D5/0.45NS 1,000 ML IV SCH (02:27)
[2016-10-09 06:13] LABS: Basophils % (Auto) 0.4 % (0.0-1.8); Eosinophils % (Auto) 1.2 % (0.0-4.3); Mean Corpuscular HGB Conc 33 % (32-34); Platelet Count 253 K/mm3 (140-440); Red Blood Count 2.78 M/mm3 (3.65-5.03); Red Cell Distribution Width 15.5 % (13.2-15.2); White Blood Count 13.6 K/mm3 (4.5-11.0)
[2016-10-09 06:14] LABS: Mean Corpuscular Hemoglobin 25 pg (28-32); Mean Corpuscular Volume 76 fl (84-94)
[2016-10-09 06:20] LABS: INR 1.35 (0.87-1.13)
[2016-10-09 06:22] LABS: Anion Gap 17 mmol/L; BUN/Creatinine Ratio 25.55; Blood Urea Nitrogen 23 mg/dL (9-20); Calcium 8.1 mg/dL (8.4-10.2); Carbon Dioxide 23 mmol/L (22-30); Chloride 98.7 mmol/L (98-107); Glucose 119 mg/dL (75-100); Potassium 3.2 mmol/L (3.6-5.0); Sodium 135 mmol/L (137-145)
[2016-10-09] MEDS: ZOSYN/NS 4.5GM/100ML 4.5 GM/100 ML VIAL IV SCH ×2 (08:06→13:11)
--- NOTE | 2016-10-09 08:56 | Anesthesia Day of Surgery ---
Anesthesia Day of Surgery - Day of Surgery Patient Examined: Yes Patient H&P Reviewed: Yes Patient is NPO: Yes
--- NOTE | 2016-10-09 08:56 | Anesthesia Consultation ---
Anesthesia Consult and Med Hx Date of service: 10/09/16 - Airway Anesthetic Teeth Evaluation: Poor (only 3 upper teeth left, mult. loose on lower ) ROM Head & Neck: Adequate Mental/Hyoid Distance: Adequate Mallampati Class: Class II Intubation Access Assessment: Probably Good - Pulmonary Exam CTA: Yes - Cardiac Exam Cardiac Exam: RRR - Pre-Operative Health Status ASA Pre-Surgery Classification: ASA2 Proposed Anesthetic Plan: MAC - Pulmonary Hx Smoking: Yes (x 40 years, quit 3 weeks ago. ) Hx Asthma: No COPD: No Hx Pneumonia: No - Endocrine Hx End Stage Renal Disease: No - Hematic Hx Anemia: Yes
[2016-10-09] MEDS: NACL 0.9% 1000 ML 1,000 ML IV SCH ×2 (09:29→17:25)
[2016-10-09] MEDS ORDERED: DIPRIVAN 10 MG/ML IV ONE ×2 (11:10)
--- NOTE | 2016-10-09 11:43 | Post Operative Note ---
Pre-op diagnosis: abnormal CT scan, neoplastic process of unknown primary Post-op diagnosis: other (extrinsic compression appearance in recto-sigmoid, area of pus drainage was seen at the rectosigmoid area. Inflamed mucosa ( biposied) but no intrinsic colon mass) Findings: inflamed mucosa in recto-sigmoid colon. there was a focal area of pus drainage at the recto-sigmoid junction. There appeared to be extrinsic compression in this area. No intrinsic colon mass was seen. Biopsies were obtain from inflammatory portion of colon. Procedure: flex sig with biopsies Anesthesia: MAC Surgeon: KATHY CHEEK Estimated blood loss: minimal Pathology: list (rectosigmoid inflammation biopsies) Specimen disposition: to lab Condition: stable Disposition: floor
--- NOTE | 2016-10-09 11:51 | Event Note ---
Date: 10/09/16 s/p flex sig. extent of exam was likely to descending colon however not advanced due to poor prep and limited mobility of colon. however, there appeared to be extrinsic compression in the recto-sigmoid colon with focal area of active drainage of pus seen into the colon. Biopsies were obtained from recto-sigmoid colon. Recommendations: -no intrinsic colon mass was seen during flex sig. suspect extra-colonic source which appears to be causing extrinsic compression and possible invasion into colon mucosa (vs fistula) given active pus drainage. -recommend surgery and urology consult -f/u pathology -heme-onc evaluation -tumor markers pending Please call with questions. Will follow-up as needed.
[2016-10-09] MEDS: VANCOMYCIN 1,250 MG in NACL 0.9% 250ML 250 ML IV SCH (12:54)
[2016-10-09] MEDS: TYLENOL PO PRN (12:54)
[2016-10-09] MEDS: MORPHINE IV PRN (13:08)
--- NOTE | 2016-10-09 14:26 | Progress Note ---
Assessment and Plan Assessment and plan: Abdominal pain: Likely from peritonitis, abscess - Patient is on IV antibiotics Pelvic mass - GI consulted and colonoscopy showed pus coming from the localized area of the colon, couldn't visualize fully because of the poor prep - Oncology and surgery consulted, no urology coverage, will consult urology when coverage is available Sepsis of GI focus - Treated with IV antibiotics and fluids according to sepsis protocol Peritonitis - Iv antibiotics Anemia secondary to anemia of chronic disease and blood loss DVT prophylaxis -SCD because the patient has severe anemia Disposition - continue inpatient care History Interval history: Patient was seen and evaluated after coming from the procedure, patient said the pain is getting better. Hospitalist Physical - Physical exam Narrative exam: Not in cardiopulmonary distress. The patient appeared chronically sick looking. Vital signs as documented. Head exam is unremarkable. No scleral icterus . Neck is without jugular venous distension, thyromegaly, or carotid bruits. Lungs are clear to auscultation. Cardiac exam reveals regular rate and Rhythm. First and second heart sounds normal. No murmurs, rubs or gallops. Abdominal exam reveals normal bowel sounds, no masses, no organomegaly and no aortic enlargement. Extremities are nonedematous and both femoral and pedal pulses are normal. SENIOR ACCOUNTANT CPA: Alert and oriented 3. No focal weakness. - Constitutional Vitals: Temp Pulse Resp BP Pulse Ox 98.6 F 78 21 110/63 95 10/09/16 11:40 10/09/16 12:10 10/09/16 12:10 10/09/16 12:10 10/09/16 12:10 General appearance: Present: mild distress Results - Labs CBC & Chem 7: 10/09/16 05:48 10/09/16 05:48 Labs: Laboratory Last Values WBC 13.6 K/mm3 (4.5-11.0) H 10/09/16 05:48 RBC 2.78 M/mm3 (3.65-5.03) L 10/09/16 05:48 Hgb 7.0 gm/dl (11.8-15.2) L 10/09/16 05:48 Hct 21.0 % (35.5-45.6) L 10/09/16 05:48 MCV 76 fl (84-94) L 10/09/16 05:48 MCH 25 pg (28-32) L 10/09/16 05:48 MCHC 33 % (32-34) 10/09/16 05:48 RDW 15.5 % (13.2-15.2) H 10/09/16 05:48 Plt Count 253 K/mm3 (140-440) 10/09/16 05:48 Lymph % (Auto) 6.9 % (13.4-35.0) L 10/09/16 05:48 [place] % (Auto) 12.3 % (0.0-7.3) H 10/09/16 05:48 Eos % (Auto) 1.2 % (0.0-4.3) 10/09/16 05:48 Baso % (Auto) 0.4 % (0.0-1.8) 10/09/16 05:48 Lymph # 0.9 K/mm3 (1.2-5.4) L 10/09/16 05:48 [place] # 1.7 K/mm3 (0.0-0.8) H 10/09/16 05:48 Eos # 0.2 K/mm3 (0.0-0.4) 10/09/16 05:48 Baso # 0.1 K/mm3 (0.0-0.1) 10/09/16 05:48 Seg Neutrophils % 79.2 % (40.0-70.0) H 10/09/16 05:48 Seg Neutrophils # 10.8 K/mm3 (1.8-7.7) H 10/09/16 05:48 ESR > 140.0 mm/Hr (0-20) 10/08/16 21:20 PT 16.6 Sec. (12.2-14.9) H 10/09/16 05:48 INR 1.35 (0.87-1.13) H 10/09/16 05:48 Sodium 135 mmol/L (137-145) L 10/09/16 05:48 Potassium 3.2 mmol/L (3.6-5.0) L 10/09/16 05:48 Chloride 98.7 mmol/L (98-107) 10/09/16 05:48 Carbon Dioxide 23 mmol/L (22-30) 10/09/16 05:48 Anion Gap 17 mmol/L 10/09/16 05:48 BUN 23 mg/dL (9-20) H 10/09/16 05:48 Creatinine 0.9 mg/dL (0.8-1.5) 10/09/16 05:48 Estimated GFR > 60 ml/min 10/09/16 05:48 BUN/Creatinine Ratio 25.55 % 10/09/16 05:48 Glucose 119 mg/dL (75-100) H 10/09/16 05:48 Lactic Acid 1.10 mmol/L (0.7-2.0) 10/08/16 06:19 Calcium 8.1 mg/dL (8.4-10.2) L 10/09/16 05:48 Iron 16 ug/dL (49-181) L 10/08/16 21:29 TIBC 89 mcg/dL (250-450) L 10/08/16 21:29 Ferritin 1101.0 ng/mL (13.0-400.0) H 10/08/16 21:31 Total Bilirubin 1.70 mg/dL (0.1-1.2) H 10/07/16 17:20 AST 57 units/L (5-40) H 10/07/16 17:20 ALT 42 units/L (7-56) 10/07/16 17:20 Alkaline Phosphatase 269 units/L (35-129) H 10/07/16 17:20 Lactate Dehydrogenase 157 units/L (91-180) 10/08/16 21:29 Total Protein 8.4 g/dL (6.3-8.2) H 10/07/16 17:20 Albumin 2.7 g/dL (3.9-5) L 10/07/16 17:20 Albumin/Globulin Ratio 0.5 % 10/07/16 17:20 Lipase 17 units/L (13-60) 10/07/16 22:00 TSH 3.000 mlU/mL (0.270-4.200) 10/07/16 17:20 Free T4 0.89 ng/dL (0.76-1.46) 10/07/16 17:20 Urine Color Yellow (Yellow) 10/07/16 Unknown Urine Turbidity Slightly-cloudy (Clear) 10/07/16 Unknown Urine pH 5.0 (5.0-7.0) 10/07/16 Unknown Ur Specific [place] 1.034 (1.003-1.030) H 10/07/16 Unknown Urine Protein 30 mg/dl mg/dL (Negative) 10/07/16 Unknown Urine Glucose (UA) Neg mg/dL (Negative) 10/07/16 Unknown Urine Ketones Neg mg/dL (Negative) 10/07/16 Unknown Urine Blood Mod (Negative) 10/07/16 Unknown Urine Nitrite Neg (Negative) 10/07/16 Unknown Urine Bilirubin Neg (Negative) 10/07/16 Unknown Urine Urobilinogen 4.0 mg/dL (<2.0) 10/07/16 Unknown Ur Leukocyte Esterase Lg (Negative) 10/07/16 Unknown Urine WBC (Auto) 78.0 /HPF (0.0-6.0) H 10/07/16 Unknown Urine RBC (Auto) 10.0 /HPF (0.0-6.0) 10/07/16 Unknown U Epithel Cells (Auto) 3.0 /HPF (0-13.0) 10/07/16 Unknown Urine Bacteria (Auto) 1+ /HPF (Negative) 10/07/16 Unknown Hyaline Casts 11 /LPF 10/07/16 Unknown Urine Mucus 1+ /HPF 10/07/16 Unknown HIV 1&2 Antibody Rapid Non react (Non React) 10/08/16 21:20 HIV P24 Antigen Non react (Non React) 10/08/16 21:20 Blood Type O POSITIVE 10/08/16 00:30 Antibody Screen TNR 10/08/16 00:30 DANGELO Antibody Screen Negative 10/08/16 00:30
--- NOTE | 2016-10-09 14:47 | Post Anesthesia Evaluation ---
- Post Anesthesia Evaluation Patient Participated: Yes Airway Patent: Yes Stable Respiratory Function: Yes Nausea/Vomiting: No Temp > 96.8F: Yes Pain Manageable: Yes Adequeate Hydration: Yes Anesthesia Complications: No
--- NOTE | 2016-10-09 16:30 | Progress Note ---
Assessment and Plan Full consult dictated 61 y/o male no past medical or surgical hx. 20 -30 lb wt loss over last month. c/o pain on urination. also diarrhea Abd - suprapubic tenderness. no other abd tenderness noted. CT - very extensive pelvis mass involving bladder, colon & obstructing L ureter. Also hepatic biliary duct obst? colonoscopy - no clear evidence of intraluminal sigmoid masses. (will discuss with GI) imp - extensive pelvic mass origin? GI origin? soft tissue malignancy? rec eval IR for CT guided biopsy will follow Selected Entries 10/09/16 10/09/16 10/09/16 11:40 11:55 12:10 Temperature 98.6 F Pulse Rate 78 Respiratory 16 Rate Blood Pressure 110/63 Laboratory Tests 10/09/16 10/09/16 10/09/16 05:48 05:48 05:48 WBC 13.6 H Hgb 7.0 L Hct 21.0 L Plt Count 253 PT 16.6 H INR 1.35 H Sodium 135 L Potassium 3.2 L Chloride 98.7 Carbon Dioxide 23 BUN 23 H Creatinine 0.9 Objective Vital Signs - 12hr 10/09/16 10/09/16 10/09/16 07:00 08:25 09:08 Temperature 99.7 F H 98.2 F 98.2 F Pulse Rate 74 84 84 Respiratory 18 7 L 7 L Rate Blood Pressure 109/66 112/66 112/66 O2 Sat by Pulse 97 96 96 Oximetry 10/09/16 10/09/16 10/09/16 11:40 11:55 12:10 Temperature 98.6 F Pulse Rate 78 81 78 Respiratory 19 16 21 Rate Blood Pressure 104/53 106/65 110/63 O2 Sat by Pulse 96 96 95 Oximetry - Labs 10/09/16 05:48 10/09/16 05:48 Diabetes panel 10/09/16 Range/Units 05:48 Sodium 135 L (137-145) mmol/L Potassium 3.2 L (3.6-5.0) mmol/L Chloride 98.7 (98-107) mmol/L Carbon Dioxide 23 (22-30) mmol/L BUN 23 H (9-20) mg/dL Creatinine 0.9 (0.8-1.5) mg/dL Glucose 119 H (75-100) mg/dL Calcium 8.1 L (8.4-10.2) mg/dL Calcium panel 10/09/16 Range/Units 05:48 Calcium 8.1 L (8.4-10.2) mg/dL Pituitary panel 10/09/16 Range/Units 05:48 Sodium 135 L (137-145) mmol/L Potassium 3.2 L (3.6-5.0) mmol/L Chloride 98.7 (98-107) mmol/L Carbon Dioxide 23 (22-30) mmol/L BUN 23 H (9-20) mg/dL Creatinine 0.9 (0.8-1.5) mg/dL Glucose 119 H (75-100) mg/dL Calcium 8.1 L (8.4-10.2) mg/dL Adrenal panel 10/09/16 Range/Units 05:48 Sodium 135 L (137-145) mmol/L Potassium 3.2 L (3.6-5.0) mmol/L Chloride 98.7 (98-107) mmol/L Carbon Dioxide 23 (22-30) mmol/L BUN 23 H (9-20) mg/dL Creatinine 0.9 (0.8-1.5) mg/dL Glucose 119 H (75-100) mg/dL Calcium 8.1 L (8.4-10.2) mg/dL
--- NOTE | 2016-10-09 17:33 | Consultation ---
History of Present Illness - Reason for Consult Consult date: 10/09/16 - History of Present Illness 61 YO Male with No PMH presents to ED for evaluation. Pt states that he has experienced abdominal pain for the past 3 weeks with worsening symptoms over the past 1 day, as well as loose watery stools over the past 1 week. Pt acknowledges 15 lbs unintentional weight loss, weakness, subjective fever, and night sweats. Pt states pain in 10/10, worsened with stool, constant, nonradiating, generalized, throbbing in nature. Pt denies ingestion of food or water from new or different sources, blood in stool, or constipation nurse at bedside colonoscopy & bx taken CTAP pelvic mass abd - slightly distended bennett placed by me A/P pelvic mass discussed with Dr. Gregg agree with CT bx will need cysto (? Friday) Past History Past Medical History: No medical history, other (reviewed) Past Surgical History: No surgical history, Other (reviewed) Social history: single. denies: smoking, alcohol abuse, prescription drug abuse Family history: hypertension Medications and Allergies Allergies Allergy/AdvReac Type Severity Reaction Status Date / Time No Known Allergies Allergy Verified 10/07/16 20:36 Home Medications Medication Instructions Recorded Confirmed Last Taken Type No Known Home Medications [No 10/09/16 10/09/16 Unknown History Reported Home Medications] Active Meds: Active Medications Acetaminophen (Tylenol) 650 mg PO Q4H PRN PRN Reason: Pain MILD(1-3)/Fever >100.5/THOMAS Last Admin: 10/09/16 12:54 Dose: 650 mg Albuterol (Proventil) 2.5 mg IH Q4HRT PRN PRN Reason: Shortness Of Breath Piperacillin Sod/Tazobactam Sod (Zosyn/Ns 4.5gm/100ml) 4.5 gm in 100 mls @ 200 mls/hr IV Q8HR [facility] PRN Reason: Protocol Last Admin: 10/09/16 13:11 Dose: 200 mls/hr Sodium Chloride (Nacl 0.9% 1000 Ml) 1,000 mls @ 50 mls/hr IV DIRECT [facility] Last Admin: 10/09/16 17:25 Dose: 50 mls/hr Vancomycin HCl 1,250 mg/ (Sodium Chloride) 275 mls @ 166.667 mls/hr IV Q12H [facility] Last Admin: 10/09/16 12:54 Dose: 166.667 mls/hr Morphine Sulfate (Morphine) 2 mg IV Q4H PRN PRN Reason: Pain, Moderate (4-6) Last Admin: 10/09/16 13:08 Dose: 2 mg Ondansetron HCl (Zofran) 4 mg IV Q8H PRN PRN Reason: N/V unrelieved by Reglan Vancomycin HCl (Vancomycin Pharmacy To Dose) 1 each IV PKCONSULT [facility] PRN Reason: Protocol Exam - Constitutional Vitals: Temp Pulse Resp BP Pulse Ox 98.6 F 78 21 110/63 95 10/09/16 11:40 10/09/16 12:10 10/09/16 12:10 10/09/16 12:10 10/09/16 12:10 Results - Labs CBC & Chem 7: 10/09/16 05:48 10/09/16 05:48 Labs: Abnormal lab results 10/08/16 10/08/16 10/09/16 Range/Units 21:29 21:31 05:48 WBC 13.6 H (4.5-11.0) K/mm3 RBC 2.78 L (3.65-5.03) M/mm3 Hgb 7.0 L (11.8-15.2) gm/dl Hct 21.0 L (35.5-45.6) % MCV 76 L (84-94) fl MCH 25 L (28-32) pg RDW 15.5 H (13.2-15.2) % Lymph % (Auto) 6.9 L (13.4-35.0) % [place] % (Auto) 12.3 H (0.0-7.3) % Lymph # 0.9 L (1.2-5.4) K/mm3 [place] # 1.7 H (0.0-0.8) K/mm3 Seg Neutrophils % 79.2 H (40.0-70.0) % Seg Neutrophils # 10.8 H (1.8-7.7) K/mm3 PT (12.2-14.9) Sec. INR (0.87-1.13) Sodium (137-145) mmol/L Potassium (3.6-5.0) mmol/L BUN (9-20) mg/dL Glucose (75-100) mg/dL Calcium (8.4-10.2) mg/dL Iron 16 L (49-181) ug/dL TIBC 89 L (250-450) mcg/dL Ferritin 1101.0 H (13.0-400.0) ng/mL 10/09/16 10/09/16 Range/Units 05:48 05:48 WBC (4.5-11.0) K/mm3 RBC (3.65-5.03) M/mm3 Hgb (11.8-15.2) gm/dl Hct (35.5-45.6) % MCV (84-94) fl MCH (28-32) pg RDW (13.2-15.2) % Lymph % (Auto) (13.4-35.0) % [place] % (Auto) (0.0-7.3) % Lymph # (1.2-5.4) K/mm3 [place] # (0.0-0.8) K/mm3 Seg Neutrophils % (40.0-70.0) % Seg Neutrophils # (1.8-7.7) K/mm3 PT 16.6 H (12.2-14.9) Sec. INR 1.35 H (0.87-1.13) Sodium 135 L (137-145) mmol/L Potassium 3.2 L (3.6-5.0) mmol/L BUN 23 H (9-20) mg/dL Glucose 119 H (75-100) mg/dL Calcium 8.1 L (8.4-10.2) mg/dL Iron (49-181) ug/dL TIBC (250-450) mcg/dL Ferritin (13.0-400.0) ng/mL
--- NOTE | 2016-10-09 18:16 | Consultation ---
History of Present Illness - Reason for Consult Consult date: 10/09/16 - History of Present Illness Patient seen/examined, labs reviewed, also GI scope reviewed, d/w patient. Hgb down to 7.0 no intrinsic mass seen in the colon. I have discussed some with DR Riggs urology. Will await path reports. He may need blood replacement. Past History Past Medical History: No medical history, other (reviewed) Past Surgical History: No surgical history, Other (reviewed) Social history: single. denies: smoking, alcohol abuse, prescription drug abuse Family history: hypertension Medications and Allergies Allergies Allergy/AdvReac Type Severity Reaction Status Date / Time No Known Allergies Allergy Verified 10/07/16 20:36 Home Medications Medication Instructions Recorded Confirmed Last Taken Type No Known Home Medications [No 10/09/16 10/09/16 Unknown History Reported Home Medications] Active Meds: Active Medications Acetaminophen (Tylenol) 650 mg PO Q4H PRN PRN Reason: Pain MILD(1-3)/Fever >100.5/THOMAS Last Admin: 10/09/16 12:54 Dose: 650 mg Albuterol (Proventil) 2.5 mg IH Q4HRT PRN PRN Reason: Shortness Of Breath Piperacillin Sod/Tazobactam Sod (Zosyn/Ns 4.5gm/100ml) 4.5 gm in 100 mls @ 200 mls/hr IV Q8HR [facility] PRN Reason: Protocol Last Admin: 10/09/16 13:11 Dose: 200 mls/hr Sodium Chloride (Nacl 0.9% 1000 Ml) 1,000 mls @ 50 mls/hr IV DIRECT [facility] Last Admin: 10/09/16 17:25 Dose: 50 mls/hr Vancomycin HCl 1,250 mg/ (Sodium Chloride) 275 mls @ 166.667 mls/hr IV Q12H [facility] Last Admin: 10/09/16 12:54 Dose: 166.667 mls/hr Morphine Sulfate (Morphine) 2 mg IV Q4H PRN PRN Reason: Pain, Moderate (4-6) Last Admin: 10/09/16 13:08 Dose: 2 mg Ondansetron HCl (Zofran) 4 mg IV Q8H PRN PRN Reason: N/V unrelieved by Gerardo Vancomycin HCl (Vancomycin Pharmacy To Dose) 1 each IV PKCONSULT [facility] PRN Reason: Protocol Review of Systems Constitutional: fatigue Exam - Constitutional Vitals: Temp Pulse Resp BP Pulse Ox 98.6 F 78 21 110/63 95 10/09/16 11:40 10/09/16 12:10 10/09/16 12:10 10/09/16 12:10 10/09/16 12:10 General appearance: Present: mild distress, well-nourished - EENT Eyes: Present: PERRL ENT: hearing intact, clear oral mucosa - Neck Neck: Present: supple, normal ROM - Respiratory Respiratory effort: normal Respiratory: bilateral: CTA - Cardiovascular Heart Sounds: Present: S1 & S2. Absent: rub, click - Extremities Extremities: pulses symmetrical, No edema Peripheral Pulses: within normal limits - Abdominal General gastrointestinal: Present: soft, non-tender, non-distended, normal bowel sounds Male genitourinary: Present: deferred - Rectal Rectal Exam: deferred - Integumentary Integumentary: Present: clear, warm, dry - Musculoskeletal Musculoskeletal: gait normal, strength equal bilaterally - Psychiatric Psychiatric: appropriate mood/affect, intact judgment & insight - Neurologic Neurologic: CNII-XII intact, moves all extremities Results - Labs CBC & Chem 7: 10/09/16 05:48 10/09/16 05:48 Labs: Abnormal lab results 10/08/16 10/08/16 10/09/16 Range/Units 21:29 21:31 05:48 WBC 13.6 H (4.5-11.0) K/mm3 RBC 2.78 L (3.65-5.03) M/mm3 Hgb 7.0 L (11.8-15.2) gm/dl Hct 21.0 L (35.5-45.6) % MCV 76 L (84-94) fl MCH 25 L (28-32) pg RDW 15.5 H (13.2-15.2) % Lymph % (Auto) 6.9 L (13.4-35.0) % [place] % (Auto) 12.3 H (0.0-7.3) % Lymph # 0.9 L (1.2-5.4) K/mm3 [place] # 1.7 H (0.0-0.8) K/mm3 Seg Neutrophils % 79.2 H (40.0-70.0) % Seg Neutrophils # 10.8 H (1.8-7.7) K/mm3 PT (12.2-14.9) Sec. INR (0.87-1.13) Sodium (137-145) mmol/L Potassium (3.6-5.0) mmol/L BUN (9-20) mg/dL Glucose (75-100) mg/dL Calcium (8.4-10.2) mg/dL Iron 16 L (49-181) ug/dL TIBC 89 L (250-450) mcg/dL Ferritin 1101.0 H (13.0-400.0) ng/mL 10/09/16 10/09/16 Range/Units 05:48 05:48 WBC (4.5-11.0) K/mm3 RBC (3.65-5.03) M/mm3 Hgb (11.8-15.2) gm/dl Hct (35.5-45.6) % MCV (84-94) fl MCH (28-32) pg RDW (13.2-15.2) % Lymph % (Auto) (13.4-35.0) % [place] % (Auto) (0.0-7.3) % Lymph # (1.2-5.4) K/mm3 [place] # (0.0-0.8) K/mm3 Seg Neutrophils % (40.0-70.0) % Seg Neutrophils # (1.8-7.7) K/mm3 PT 16.6 H (12.2-14.9) Sec. INR 1.35 H (0.87-1.13) Sodium 135 L (137-145) mmol/L Potassium 3.2 L (3.6-5.0) mmol/L BUN 23 H (9-20) mg/dL Glucose 119 H (75-100) mg/dL Calcium 8.1 L (8.4-10.2) mg/dL Iron (49-181) ug/dL TIBC (250-450) mcg/dL Ferritin (13.0-400.0) ng/mL Assessment and Plan - Patient Problems (1) Abdominal pain, acute, bilateral lower quadrant Current Visit: Yes Status: Acute Plan to address problem: This is due to the mass effect. (2) Anemia Current Visit: Yes Status: Acute Qualifiers: Anemia type: iron deficiency Iron deficiency anemia type: chronic blood loss Vitamin B12 deficiency anemia type: V Folate deficiency anemia type: F Bone marrow failure anemia type: B Hemolytic anemia type: H Other causes of anemia: O Chronic kidney disease stage: C Qualified Code(s): D50.0 - Iron deficiency anemia secondary to blood loss (chronic) Plan to address problem: Replacement when indicated. (3) Mass of colon Current Visit: Yes Status: Acute Plan to address problem: await colonoscopy with tissue bx, then path report.
[2016-10-09] MEDS ORDERED: NACL 0.9% 500 ML 500 ML IV NR (18:17)
[2016-10-09] MEDS ORDERED: K-DUR PO ONE (18:58)
--- NOTE | 2016-10-09 19:59 | Operative Report ---
PROCEDURE: Flexible sigmoidoscopy. PREOPERATIVE DIAGNOSES: Abnormal CT scan, pelvic mass/neoplastic process of unknown primary. POSTOPERATIVE DIAGNOSES: Extrinsic compression in the rectosigmoid colon, inflamed mucosa of the rectosigmoid with active pus drainage was seen in the distal colon. ANESTHESIA: Monitored anesthesia care. COMPLICATIONS: No immediate complications. ESTIMATED BLOOD LOSS: Minimal. DESCRIPTION OF PROCEDURE: After consent was obtained, the patient was placed in left lateral decubitus position. The Fujinon colonoscope was inserted into the rectum and advanced to the descending colon. Complete colonoscopy was unable to be performed due to restricted mobility of colon and quality of prep. The patient tolerated the procedure well. The views of the mucosa were fair/ adequate in visualized portion of colon. FINDINGS: There appeared to be extrinsic compression of the rectosigmoid colon. There was associated inflammatory mucosa in the distal colon, but no obvious intrinsic colon mass was seen. There was active drainage of pus seen in the rectosigmoid colon, suggestive of extra-colonic process. Biopsies were obtained from the rectosigmoid inflammation site. The extent of the exam was likely the descending colon. Further advancement of the scope was not done due to poor quality of prep, and due to findings of the rectosigmoid colon as above. IMPRESSION: No intrinsic colon mass was seen. However, there appeared to be extrinsic ( extra-colonic) compression of the rectosigmoid colon with active pus drainage seen in the rectosigmoid. Etiology unclear, but infectious process vs malignancy remain on differential. RECOMMENDATIONS: 1. Follow up pathology. 2. Recommend General Surgery consult and Urology evaluation. 3. If path is nondiagnostic, consider IR consult to obtain tissue diagnosis vs drainage of possible infectious process. JOB# [id number] NEGRITA/SCOTT SANTOS
--- NOTE | 2016-10-09 23:45 | Consultation ---
REASON FOR CONSULTATION: Pelvic mass, rule out colon pathology. HISTORY OF PRESENT ILLNESS: The patient is a pleasant 61-year-old gentleman who previously had no previous past medical or surgical history. Does state however that he has lost 20-30 pounds over the last month and has \\"been losing his appetite.\\" States approximately 2 days ago, was urinating when he then had some uncontrollable loose stools. Denies any nausea or vomiting. No real abdominal pain. Does state he has pain on urination, but no burning. PAST MEDICAL HISTORY: Negative. PAST SURGICAL HISTORY: Negative. ALLERGIES: No known allergies. MEDICATIONS: No medications. FAMILY HISTORY: Prostate cancer. SOCIAL HISTORY: Half a pack smoker for approximately 40 years. PHYSICAL EXAMINATION: GENERAL: At this time reveals the patient to be awake, alert and cooperative, in no acute distress. VITAL SIGNS: Show him to be afebrile with a temperature of 98.6, blood pressure is 110/63, pulse is 78, respirations 16. ABDOMEN: Examination of the abdomen reveals it to be supposing a nontender except for the suprapubic region, which does elicit some tenderness on moderate palpation. Bowel sounds are present. LABORATORY DATA: Lab work at present includes a CBC which shows a white count of 13.6, H and H is very low at 7 and 21, platelet count is 253. PT is 16.6, INR is 1.35. Electrolytes show low sodium of 135 and low potassium of 3.2. Chloride is 98, carbon dioxide is 23, BUN 23, creatinine is 0.9. Liver function tests show total bili of 1.7, AST is 57, ALT is 42, alk phos is 269. Lipase is 17. A CT scan of the abdomen was performed, which reveals a very extensive mass involving the entire pelvis and surrounding bladder also encroaching on the sigmoid colon. There is also a description of obstruction in the right hepatic biliary ducts. MRI shows gallstones, no dilated common duct. IMPRESSION: 1. At this time is that of a 61-year-old male with unspecified very large pelvic pathology, rule out genitourinary origin. 2. Rule out gastrointestinal origin. 3. Rule out possible soft tissue mass. ADDENDUM The patient just recently had a colonoscopy. It appears there is no evidence of any distinct discrete intraluminal pathology, but will review this with GI to make sure. I will obtain an interventional radiology consultation for a CT-guided biopsy and we will also obtain consultation. We will follow with you. Thank you very much for consultation. JOB# [id number] ELPIDIO/SCOTT
[2016-10-10] MEDS: ZOSYN/NS 4.5GM/100ML 4.5 GM/100 ML VIAL IV SCH ×4 (00:36→22:48)
[2016-10-10] MEDS: VANCOMYCIN 1,250 MG in NACL 0.9% 250ML 250 ML IV SCH (02:50)
[2016-10-10] MEDS: TYLENOL PO PRN (03:12)
[2016-10-10 07:16] LABS: Hematocrit 25.3 % (35.5-45.6); Hemoglobin 8.2 gm/dl (11.8-15.2); Mean Corpuscular HGB Conc 33 % (32-34); Mean Corpuscular Volume 78 fl (84-94); Red Blood Count 3.27 M/mm3 (3.65-5.03); White Blood Count 13.7 K/mm3 (4.5-11.0)
[2016-10-10 07:17] LABS: Basophils % (Auto) 0.3 % (0.0-1.8); Eosinophils % (Auto) 0.9 % (0.0-4.3); Platelet Count 283 K/mm3 (140-440)
[2016-10-10 07:19] LABS: Mean Corpuscular Hemoglobin 25 pg (28-32)
[2016-10-10 07:31] LABS: Anion Gap 20 mmol/L; BUN/Creatinine Ratio 18.88; Blood Urea Nitrogen 17 mg/dL (9-20); Calcium 8.3 mg/dL (8.4-10.2); Carbon Dioxide 22 mmol/L (22-30); Chloride 104.1 mmol/L (98-107); Glucose 99 mg/dL (75-100); Potassium 3.8 mmol/L (3.6-5.0); Sodium 142 mmol/L (137-145)
--- NOTE | 2016-10-10 09:00 | Progress Note ---
Assessment and Plan Pt status quo. no new compl Abd exam - status quo & hematology evals noted awaiting colonoscopy biopsy results for CT guided biopsy of pelvic mass today Selected Entries 10/10/16 10/10/16 00:00 07:10 Temperature 100.5 F H Pulse Rate 72 Respiratory 15 Rate Blood Pressure 125/77 Laboratory Tests 10/09/16 10/10/16 10/10/16 05:48 06:41 06:41 WBC 13.7 H Hgb 7.0 L 8.2 L Hct 21.0 L 25.3 L Sodium 142 D Potassium 3.8 Chloride 104.1 Carbon Dioxide 22 BUN 17 Creatinine 0.9 Objective Vital Signs - 12hr 10/09/16 10/10/16 10/10/16 22:00 00:00 07:10 Temperature 100.5 F H 98 F Pulse Rate 86 72 Respiratory 18 15 Rate Blood Pressure 100/62 125/77 O2 Sat by Pulse 96 96 97 Oximetry - Labs 10/10/16 06:41 10/10/16 06:41 Diabetes panel 10/10/16 Range/Units 06:41 Sodium 142 D (137-145) mmol/L Potassium 3.8 (3.6-5.0) mmol/L Chloride 104.1 (98-107) mmol/L Carbon Dioxide 22 (22-30) mmol/L BUN 17 (9-20) mg/dL Creatinine 0.9 (0.8-1.5) mg/dL Glucose 99 (75-100) mg/dL Calcium 8.3 L (8.4-10.2) mg/dL Calcium panel 10/10/16 Range/Units 06:41 Calcium 8.3 L (8.4-10.2) mg/dL Pituitary panel 10/10/16 Range/Units 06:41 Sodium 142 D (137-145) mmol/L Potassium 3.8 (3.6-5.0) mmol/L Chloride 104.1 (98-107) mmol/L Carbon Dioxide 22 (22-30) mmol/L BUN 17 (9-20) mg/dL Creatinine 0.9 (0.8-1.5) mg/dL Glucose 99 (75-100) mg/dL Calcium 8.3 L (8.4-10.2) mg/dL Adrenal panel 10/10/16 Range/Units 06:41 Sodium 142 D (137-145) mmol/L Potassium 3.8 (3.6-5.0) mmol/L Chloride 104.1 (98-107) mmol/L Carbon Dioxide 22 (22-30) mmol/L BUN 17 (9-20) mg/dL Creatinine 0.9 (0.8-1.5) mg/dL Glucose 99 (75-100) mg/dL Calcium 8.3 L (8.4-10.2) mg/dL
--- NOTE | 2016-10-10 12:10 | Progress Note ---
History Interval history: Patient was seen and evaluated this AM, patient said the pain is getting better. Hospitalist Physical - Physical exam Narrative exam: Not in cardiopulmonary distress. The patient appeared chronically sick looking. Vital signs as documented. Head exam is unremarkable. No scleral icterus . Neck is without jugular venous distension, thyromegaly, or carotid bruits. Lungs are clear to auscultation. Cardiac exam reveals regular rate and Rhythm. First and second heart sounds normal. No murmurs, rubs or gallops. Abdominal exam reveals non tender, no guarding or rigidity. Extremities are nonedematous and both femoral and pedal pulses are normal. [employer]LYST: Alert and oriented 3. No focal weakness. - Constitutional Vitals: Temp Pulse Resp BP Pulse Ox 98 F 72 15 125/77 98 10/10/16 07:10 10/10/16 07:10 10/10/16 07:10 10/10/16 07:10 10/10/16 09:49 General appearance: Present: mild distress, well-nourished Results - Labs CBC & Chem 7: 10/10/16 06:41 10/10/16 06:41 Labs: Laboratory Last Values WBC 13.7 K/mm3 (4.5-11.0) H 10/10/16 06:41 RBC 3.27 M/mm3 (3.65-5.03) L 10/10/16 06:41 Hgb 8.2 gm/dl (11.8-15.2) L 10/10/16 06:41 Hct 25.3 % (35.5-45.6) L 10/10/16 06:41 MCV 78 fl (84-94) L 10/10/16 06:41 MCH 25 pg (28-32) L 10/10/16 06:41 MCHC 33 % (32-34) 10/10/16 06:41 RDW 16.0 % (13.2-15.2) H 10/10/16 06:41 Plt Count 283 K/mm3 (140-440) 10/10/16 06:41 Lymph % (Auto) 8.4 % (13.4-35.0) L 10/10/16 06:41 [place] % (Auto) 11.7 % (0.0-7.3) H 10/10/16 06:41 Eos % (Auto) 0.9 % (0.0-4.3) 10/10/16 06:41 Baso % (Auto) 0.3 % (0.0-1.8) 10/10/16 06:41 Lymph # 1.2 K/mm3 (1.2-5.4) 10/10/16 06:41 [place] # 1.6 K/mm3 (0.0-0.8) H 10/10/16 06:41 Eos # 0.1 K/mm3 (0.0-0.4) 10/10/16 06:41 Baso # 0.0 K/mm3 (0.0-0.1) 10/10/16 06:41 Seg Neutrophils % 78.7 % (40.0-70.0) H 10/10/16 06:41 Seg Neutrophils # 10.8 K/mm3 (1.8-7.7) H 10/10/16 06:41 ESR > 140.0 mm/Hr (0-20) 10/08/16 21:20 PT 16.6 Sec. (12.2-14.9) H 10/09/16 05:48 INR 1.35 (0.87-1.13) H 10/09/16 05:48 Sodium 142 mmol/L (137-145) D 10/10/16 06:41 Potassium 3.8 mmol/L (3.6-5.0) 10/10/16 06:41 Chloride 104.1 mmol/L (98-107) 10/10/16 06:41 Carbon Dioxide 22 mmol/L (22-30) 10/10/16 06:41 Anion Gap 20 mmol/L 10/10/16 06:41 BUN 17 mg/dL (9-20) 10/10/16 06:41 Creatinine 0.9 mg/dL (0.8-1.5) 10/10/16 06:41 Estimated GFR > 60 ml/min 10/10/16 06:41 BUN/Creatinine Ratio 18.88 % 10/10/16 06:41 Glucose 99 mg/dL (75-100) 10/10/16 06:41 Lactic Acid 1.10 mmol/L (0.7-2.0) 10/08/16 06:19 Calcium 8.3 mg/dL (8.4-10.2) L 10/10/16 06:41 Iron 16 ug/dL (49-181) L 10/08/16 21:29 TIBC 89 mcg/dL (250-450) L 10/08/16 21:29 Ferritin 1101.0 ng/mL (13.0-400.0) H 10/08/16 21:31 Total Bilirubin 1.70 mg/dL (0.1-1.2) H 10/07/16 17:20 AST 57 units/L (5-40) H 10/07/16 17:20 ALT 42 units/L (7-56) 10/07/16 17:20 Alkaline Phosphatase 269 units/L (35-129) H 10/07/16 17:20 Lactate Dehydrogenase 157 units/L (91-180) 10/08/16 21:29 Total Protein 8.4 g/dL (6.3-8.2) H 10/07/16 17:20 Albumin 2.7 g/dL (3.9-5) L 10/07/16 17:20 Albumin/Globulin Ratio 0.5 % 10/07/16 17:20 Lipase 17 units/L (13-60) 10/07/16 22:00 TSH 3.000 mlU/mL (0.270-4.200) 10/07/16 17:20 Free T4 0.89 ng/dL (0.76-1.46) 10/07/16 17:20 Urine Color Yellow (Yellow) 10/07/16 Unknown Urine Turbidity Slightly-cloudy (Clear) 10/07/16 Unknown Urine pH 5.0 (5.0-7.0) 10/07/16 Unknown Ur Specific [place] 1.034 (1.003-1.030) H 10/07/16 Unknown Urine Protein 30 mg/dl mg/dL (Negative) 10/07/16 Unknown Urine Glucose (UA) Neg mg/dL (Negative) 10/07/16 Unknown Urine Ketones Neg mg/dL (Negative) 10/07/16 Unknown Urine Blood Mod (Negative) 10/07/16 Unknown Urine Nitrite Neg (Negative) 10/07/16 Unknown Urine Bilirubin Neg (Negative) 10/07/16 Unknown Urine Urobilinogen 4.0 mg/dL (<2.0) 10/07/16 Unknown Ur Leukocyte Esterase Lg (Negative) 10/07/16 Unknown Urine WBC (Auto) 78.0 /HPF (0.0-6.0) H 10/07/16 Unknown Urine RBC (Auto) 10.0 /HPF (0.0-6.0) 10/07/16 Unknown U Epithel Cells (Auto) 3.0 /HPF (0-13.0) 10/07/16 Unknown Urine Bacteria (Auto) 1+ /HPF (Negative) 10/07/16 Unknown Hyaline Casts 11 /LPF 10/07/16 Unknown Urine Mucus 1+ /HPF 10/07/16 Unknown HIV 1&2 Antibody Rapid Non react (Non React) 10/08/16 21:20 HIV P24 Antigen Non react (Non React) 10/08/16 21:20 Blood Type O POSITIVE 10/08/16 00:30 Antibody Screen TNR 10/08/16 00:30 DANGELO Antibody Screen Negative 10/08/16 00:30 Crossmatch See Detail 10/08/16 00:30
--- NOTE | 2016-10-10 12:15 | Consultation ---
History of Present Illness - Reason for Consult Consult date: 10/10/16 - History of Present Illness Patient seen/examined, resting ok in bed, labs reviewed, post transfusion of PRBC, and improved. He is scheduled for urology procedure today. Past History Past Medical History: No medical history, other (reviewed) Past Surgical History: No surgical history, Other (reviewed) Social history: single. denies: smoking, alcohol abuse, prescription drug abuse Family history: hypertension Medications and Allergies Allergies Allergy/AdvReac Type Severity Reaction Status Date / Time No Known Allergies Allergy Verified 10/07/16 20:36 Home Medications Medication Instructions Recorded Confirmed Last Taken Type No Known Home Medications [No 10/09/16 10/09/16 Unknown History Reported Home Medications] Active Meds: Active Medications Acetaminophen (Tylenol) 650 mg PO Q4H PRN PRN Reason: Pain MILD(1-3)/Fever >100.5/THOMAS Last Admin: 10/10/16 03:12 Dose: 650 mg Albuterol (Proventil) 2.5 mg IH Q4HRT PRN PRN Reason: Shortness Of Breath Piperacillin Sod/Tazobactam Sod (Zosyn/Ns 4.5gm/100ml) 4.5 gm in 100 mls @ 200 mls/hr IV Q8HR [facility] PRN Reason: Protocol Last Admin: 10/10/16 06:11 Dose: 200 mls/hr Sodium Chloride (Nacl 0.9% 1000 Ml) 1,000 mls @ 50 mls/hr IV DIRECT [facility] Last Admin: 10/09/16 17:25 Dose: 50 mls/hr Vancomycin HCl 1,250 mg/ (Sodium Chloride) 275 mls @ 166.667 mls/hr IV Q12H [facility] Last Admin: 10/10/16 02:50 Dose: Not Given Morphine Sulfate (Morphine) 2 mg IV Q4H PRN PRN Reason: Pain, Moderate (4-6) Last Admin: 10/09/16 13:08 Dose: 2 mg Ondansetron HCl (Zofran) 4 mg IV Q8H PRN PRN Reason: N/V unrelieved by Williamlan Vancomycin HCl (Vancomycin Pharmacy To Dose) 1 each IV PKCONSULT [facility] PRN Reason: Protocol Exam - Constitutional Vitals: Temp Pulse Resp BP Pulse Ox 98 F 72 15 125/77 98 10/10/16 07:10 10/10/16 07:10 10/10/16 07:10 10/10/16 07:10 10/10/16 09:49 General appearance: Present: mild distress, well-nourished - EENT Eyes: Present: PERRL ENT: hearing intact, clear oral mucosa - Neck Neck: Present: supple, normal ROM - Respiratory Respiratory effort: normal Respiratory: bilateral: CTA - Cardiovascular Heart Sounds: Present: S1 & S2. Absent: rub, click - Extremities Extremities: pulses symmetrical, No edema Peripheral Pulses: within normal limits - Abdominal General gastrointestinal: Present: soft, non-tender, non-distended, normal bowel sounds Male genitourinary: Present: deferred - Rectal Rectal Exam: deferred - Integumentary Integumentary: Present: clear, warm, dry - Musculoskeletal Musculoskeletal: gait normal, strength equal bilaterally - Psychiatric Psychiatric: appropriate mood/affect, intact judgment & insight - Neurologic Neurologic: CNII-XII intact, moves all extremities Results - Labs CBC & Chem 7: 10/10/16 06:41 10/10/16 06:41 Labs: Abnormal lab results 10/08/16 10/10/16 10/10/16 Range/Units 00:30 06:41 06:41 WBC 13.7 H (4.5-11.0) K/mm3 RBC 3.27 L (3.65-5.03) M/mm3 Hgb 8.2 L (11.8-15.2) gm/dl Hct 25.3 L (35.5-45.6) % MCV 78 L (84-94) fl MCH 25 L (28-32) pg RDW 16.0 H (13.2-15.2) % Lymph % (Auto) 8.4 L (13.4-35.0) % [place] % (Auto) 11.7 H (0.0-7.3) % [place] # 1.6 H (0.0-0.8) K/mm3 Seg Neutrophils % 78.7 H (40.0-70.0) % Seg Neutrophils # 10.8 H (1.8-7.7) K/mm3 Calcium 8.3 L (8.4-10.2) mg/dL Crossmatch See Detail Assessment and Plan - Patient Problems (1) Abdominal pain, acute, bilateral lower quadrant Current Visit: Yes Status: Acute Plan to address problem: This is due to the mass effect. improved as per patient. (2) Anemia Current Visit: Yes Status: Acute Qualifiers: Anemia type: iron deficiency Iron deficiency anemia type: chronic blood loss Vitamin B12 deficiency anemia type: V Folate deficiency anemia type: F Bone marrow failure anemia type: B Hemolytic anemia type: H Other causes of anemia: O Chronic kidney disease stage: C Qualified Code(s): D50.0 - Iron deficiency anemia secondary to blood loss (chronic) Plan to address problem: Replacement when indicated. better post transfusion. (3) Mass of colon Current Visit: Yes Status: Acute Plan to address problem: await colonoscopy with tissue bx, then path report.
[2016-10-10] MEDS ORDERED: VERSED IV ONE ×2 (13:32→13:39)
[2016-10-10] MEDS ORDERED: SUBLIMAZE ONE ×2 (13:32→14:13)
[2016-10-10] MEDS ORDERED: SUBLIMAZE IV ONE ×2 (13:39→15:02)
--- NOTE | 2016-10-10 14:45 | Progress Note ---
Assessment and Plan Assessment and plan: CT reviewed and showed extensive right portal vein thrombosis -Patient is placed on heparin drip - We will follow H&H closely and also look for any bleeding Abdominal pain: - From mass effect vs abscess -Drainage of abscess was done by interventional radiologist and about 25 mL of purulent fluid was drained -Patient is on IV antibiotics -ID consult placed Pelvic mass - GI consulted and colonoscopy showed pus coming from the localized area of the colon, couldn't visualize fully because of the poor prep - Oncology, surgery & urology consult appreciated - will have cystoscopy next week Sepsis of GI focus - Treated with IV antibiotics and fluids according to sepsis protocol Peritonitis - Iv antibiotics Anemia secondary to anemia of chronic disease and blood loss DVT prophylaxis - On heparin drip Disposition - continue inpatient care History Interval history: Patient was seen and evaluated this AM, patient said the pain is getting better. Patient still has low-grade fever. Hospitalist Physical - Physical exam Narrative exam: Not in cardiopulmonary distress. The patient appeared chronically sick looking. Vital signs as documented. Head exam is unremarkable. No scleral icterus . Neck is without jugular venous distension, thyromegaly, or carotid bruits. Lungs are clear to auscultation. Cardiac exam reveals regular rate and Rhythm. First and second heart sounds normal. No murmurs, rubs or gallops. Abdominal exam reveals non tender, no guarding or rigidity. Extremities are nonedematous and both femoral and pedal pulses are normal. SERVICE AIDE: Alert and oriented 3. No focal weakness. - Constitutional Vitals: Temp Pulse Resp BP Pulse Ox 98 F 76 18 139/75 98 10/10/16 07:10 10/10/16 13:44 10/10/16 13:44 10/10/16 13:44 10/10/16 13:44 General appearance: Present: mild distress, well-nourished Results - Labs CBC & Chem 7: 10/10/16 06:41 10/10/16 06:41 Labs: Laboratory Last Values WBC 13.7 K/mm3 (4.5-11.0) H 10/10/16 06:41 RBC 3.27 M/mm3 (3.65-5.03) L 10/10/16 06:41 Hgb 8.2 gm/dl (11.8-15.2) L 10/10/16 06:41 Hct 25.3 % (35.5-45.6) L 10/10/16 06:41 MCV 78 fl (84-94) L 10/10/16 06:41 MCH 25 pg (28-32) L 10/10/16 06:41 MCHC 33 % (32-34) 10/10/16 06:41 RDW 16.0 % (13.2-15.2) H 10/10/16 06:41 Plt Count 283 K/mm3 (140-440) 10/10/16 06:41 Lymph % (Auto) 8.4 % (13.4-35.0) L 10/10/16 06:41 [place] % (Auto) 11.7 % (0.0-7.3) H 10/10/16 06:41 Eos % (Auto) 0.9 % (0.0-4.3) 10/10/16 06:41 Baso % (Auto) 0.3 % (0.0-1.8) 10/10/16 06:41 Lymph # 1.2 K/mm3 (1.2-5.4) 10/10/16 06:41 [place] # 1.6 K/mm3 (0.0-0.8) H 10/10/16 06:41 Eos # 0.1 K/mm3 (0.0-0.4) 10/10/16 06:41 Baso # 0.0 K/mm3 (0.0-0.1) 10/10/16 06:41 Seg Neutrophils % 78.7 % (40.0-70.0) H 10/10/16 06:41 Seg Neutrophils # 10.8 K/mm3 (1.8-7.7) H 10/10/16 06:41 ESR > 140.0 mm/Hr (0-20) 10/08/16 21:20 PT 16.6 Sec. (12.2-14.9) H 10/09/16 05:48 INR 1.35 (0.87-1.13) H 10/09/16 05:48 Sodium 142 mmol/L (137-145) D 10/10/16 06:41 Potassium 3.8 mmol/L (3.6-5.0) 10/10/16 06:41 Chloride 104.1 mmol/L (98-107) 10/10/16 06:41 Carbon Dioxide 22 mmol/L (22-30) 10/10/16 06:41 Anion Gap 20 mmol/L 10/10/16 06:41 BUN 17 mg/dL (9-20) 10/10/16 06:41 Creatinine 0.9 mg/dL (0.8-1.5) 10/10/16 06:41 Estimated GFR > 60 ml/min 10/10/16 06:41 BUN/Creatinine Ratio 18.88 % 10/10/16 06:41 Glucose 99 mg/dL (75-100) 10/10/16 06:41 Lactic Acid 1.10 mmol/L (0.7-2.0) 10/08/16 06:19 Calcium 8.3 mg/dL (8.4-10.2) L 10/10/16 06:41 Iron 16 ug/dL (49-181) L 10/08/16 21:29 TIBC 89 mcg/dL (250-450) L 10/08/16 21:29 Ferritin 1101.0 ng/mL (13.0-400.0) H 10/08/16 21:31 Total Bilirubin 1.70 mg/dL (0.1-1.2) H 10/07/16 17:20 AST 57 units/L (5-40) H 10/07/16 17:20 ALT 42 units/L (7-56) 10/07/16 17:20 Alkaline Phosphatase 269 units/L (35-129) H 10/07/16 17:20 Lactate Dehydrogenase 157 units/L (91-180) 10/08/16 21:29 Total Protein 8.4 g/dL (6.3-8.2) H 10/07/16 17:20 Albumin 2.7 g/dL (3.9-5) L 10/07/16 17:20 Albumin/Globulin Ratio 0.5 % 10/07/16 17:20 Lipase 17 units/L (13-60) 10/07/16 22:00 TSH 3.000 mlU/mL (0.270-4.200) 10/07/16 17:20 Free T4 0.89 ng/dL (0.76-1.46) 10/07/16 17:20 Urine Color Yellow (Yellow) 10/07/16 Unknown Urine Turbidity Slightly-cloudy (Clear) 10/07/16 Unknown Urine pH 5.0 (5.0-7.0) 10/07/16 Unknown Ur Specific [place] 1.034 (1.003-1.030) H 10/07/16 Unknown Urine Protein 30 mg/dl mg/dL (Negative) 10/07/16 Unknown Urine Glucose (UA) Neg mg/dL (Negative) 10/07/16 Unknown Urine Ketones Neg mg/dL (Negative) 10/07/16 Unknown Urine Blood Mod (Negative) 10/07/16 Unknown Urine Nitrite Neg (Negative) 10/07/16 Unknown Urine Bilirubin Neg (Negative) 10/07/16 Unknown Urine Urobilinogen 4.0 mg/dL (<2.0) 10/07/16 Unknown Ur Leukocyte Esterase Lg (Negative) 10/07/16 Unknown Urine WBC (Auto) 78.0 /HPF (0.0-6.0) H 10/07/16 Unknown Urine RBC (Auto) 10.0 /HPF (0.0-6.0) 10/07/16 Unknown U Epithel Cells (Auto) 3.0 /HPF (0-13.0) 10/07/16 Unknown Urine Bacteria (Auto) 1+ /HPF (Negative) 10/07/16 Unknown Hyaline Casts 11 /LPF 10/07/16 Unknown Urine Mucus 1+ /HPF 10/07/16 Unknown HIV 1&2 Antibody Rapid Non react (Non React) 10/08/16 21:20 HIV P24 Antigen Non react (Non React) 10/08/16 21:20 Blood Type O POSITIVE 10/08/16 00:30 Antibody Screen TNR 10/08/16 00:30 DANGELO Antibody Screen Negative 10/08/16 00:30 Crossmatch See Detail 10/08/16 00:30 - Imaging and Cardiology CT scan - abdomen: report reviewed (extensive right portal vein thrombosis)
--- NOTE | 2016-10-10 14:53 | Post Operative Note ---
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 Hepatic findings are consistent with an extensive right portal venous thrombus. Discussed with diagnostic radiology who will issue an addendum. Procedure: 1. CT guided placement of a 17 gauge coaxial needle into the left ileopsoas lesion 2. Aspiration of purulent material 3. Aborted biopsy 4. CT guided placement of an 8 Fr drain into the left ileopsoas collection Anesthesia: local (w/ conscious sedation) Surgeon: ALBERT HOLLAND Estimated blood loss: minimal Condition: stable Disposition: floor
--- NOTE | 2016-10-10 16:35 | Event Note ---
Date: 10/10/[address] scan prior to procedure. The hepatic findings represent extensive right portal vein thrombus. Discussed with diagnostic radiology who will issue an addendum. Discussed with Dr. Mariscal. If possible, patient would need to be anticoagulated. Can consider reconsulting gastroenterology and/or hematology for guidance with anticoagulation. PVT does not have any studies with Eliquis or Xarelto that I am aware of, and therefore it is usually treated with coumadin.
[2016-10-10 17:15] LABS: Hematocrit 27.1 % (35.5-45.6); Hemoglobin 8.7 gm/dl (11.8-15.2)
[2016-10-10 17:26] LABS: INR 1.23 (0.87-1.13); Partial Thromboplastin Time 26.4 Sec. (24.2-36.6)
--- NOTE | 2016-10-10 18:14 | Progress Note ---
Subjective Date of service: 10/10/16 Interval history: PROCEDURE PERFORMED BY DR. HOLLAND 1. CT guided placement of a 17 gauge coaxial needle into the left ileopsoas lesion 2. Aspiration of purulent material 61 YO Male with No PMH presents to ED for evaluation. Pt states that he has experienced abdominal pain for the past 3 weeks with worsening symptoms over the past 1 day, as well as loose watery stools over the past 1 week. Pt acknowledges 15 lbs unintentional weight loss, weakness, subjective fever, and night sweats. Pt states pain in 1010, worsened with stool, constant, nonradiating, generalized, throbbing in nature. Pt denies ingestion of food or water from new or different sources, blood in stool, or constipation nurse at bedside colonoscopy & bx taken CTAP pelvic mass abd - slightly distended bennett placed by me A/P pelvic mass discussed with Dr. Adamula will need cysto (? NEXT FRIDAY OR OUTPT) Objective - Constitutional Vitals: Vital Signs - 12hr 10/10/16 10/10/16 10/10/16 07:10 09:49 13:44 Temperature 98 F Pulse Rate 72 Pulse Rate [ Intra-Procedure ] Pulse Rate [ Post-Procedure] Pulse Rate [Pre 76 -Procedure] Respiratory 15 Rate Respiratory Rate [Intra- Procedure] Respiratory Rate [Post- Procedure] Respiratory 18 Rate [Pre- Procedure] Blood Pressure 125/77 Blood Pressure [Intra- Procedure] Blood Pressure [Post-Procedure ] Blood Pressure 139/75 [Pre-Procedure] O2 Sat by Pulse 97 98 Oximetry O2 Sat by Pulse Oximetry [ Intra-Procedure ] O2 Sat by Pulse Oximetry [Post -Procedure] O2 Sat by Pulse 98 Oximetry [Pre- Procedure] 10/10/16 10/10/16 10/10/16 14:11 14:15 14:20 Temperature Pulse Rate Pulse Rate [ 78 77 78 Intra-Procedure ] Pulse Rate [ Post-Procedure] Pulse Rate [Pre -Procedure] Respiratory Rate Respiratory 18 18 18 Rate [Intra- Procedure] Respiratory Rate [Post- Procedure] Respiratory Rate [Pre- Procedure] Blood Pressure Blood Pressure 140/80 136/74 136/74 [Intra- Procedure] Blood Pressure [Post-Procedure ] Blood Pressure [Pre-Procedure] O2 Sat by Pulse Oximetry O2 Sat by Pulse 99 98 98 Oximetry [ Intra-Procedure ] O2 Sat by Pulse Oximetry [Post -Procedure] O2 Sat by Pulse Oximetry [Pre- Procedure] 10/10/16 10/10/16 10/10/16 14:25 14:30 14:35 Temperature Pulse Rate Pulse Rate [ 74 73 71 Intra-Procedure ] Pulse Rate [ Post-Procedure] Pulse Rate [Pre -Procedure] Respiratory Rate Respiratory 16 16 18 Rate [Intra- Procedure] Respiratory Rate [Post- Procedure] Respiratory Rate [Pre- Procedure] Blood Pressure Blood Pressure 124/67 142/77 152/85 [Intra- Procedure] Blood Pressure [Post-Procedure ] Blood Pressure [Pre-Procedure] O2 Sat by Pulse Oximetry O2 Sat by Pulse 98 98 98 Oximetry [ Intra-Procedure ] O2 Sat by Pulse Oximetry [Post -Procedure] O2 Sat by Pulse Oximetry [Pre- Procedure] 10/10/16 10/10/16 10/10/16 14:40 14:45 15:00 Temperature Pulse Rate Pulse Rate [ 72 73 Intra-Procedure ] Pulse Rate [ 74 Post-Procedure] Pulse Rate [Pre -Procedure] Respiratory Rate Respiratory 18 18 Rate [Intra- Procedure] Respiratory 18 Rate [Post- Procedure] Respiratory Rate [Pre- Procedure] Blood Pressure Blood Pressure 146/74 133/73 [Intra- Procedure] Blood Pressure 122/68 [Post-Procedure ] Blood Pressure [Pre-Procedure] O2 Sat by Pulse Oximetry O2 Sat by Pulse 99 99 Oximetry [ Intra-Procedure ] O2 Sat by Pulse 98 Oximetry [Post -Procedure] O2 Sat by Pulse Oximetry [Pre- Procedure] 10/10/16 15:15 Temperature 97.9 F Pulse Rate 73 Pulse Rate [ Intra-Procedure ] Pulse Rate [ Post-Procedure] Pulse Rate [Pre -Procedure] Respiratory 14 Rate Respiratory Rate [Intra- Procedure] Respiratory Rate [Post- Procedure] Respiratory Rate [Pre- Procedure] Blood Pressure 128/79 Blood Pressure [Intra- Procedure] Blood Pressure [Post-Procedure ] Blood Pressure [Pre-Procedure] O2 Sat by Pulse 98 Oximetry O2 Sat by Pulse Oximetry [ Intra-Procedure ] O2 Sat by Pulse Oximetry [Post -Procedure] O2 Sat by Pulse Oximetry [Pre- Procedure] - Labs CBC & Chem 7: 10/10/16 16:38 10/10/16 06:41 Labs: Abnormal lab results 10/08/16 10/10/16 10/10/16 Range/Units 00:30 06:41 06:41 WBC 13.7 H (4.5-11.0) K/mm3 RBC 3.27 L (3.65-5.03) M/mm3 Hgb 8.2 L (11.8-15.2) gm/dl Hct 25.3 L (35.5-45.6) % MCV 78 L (84-94) fl MCH 25 L (28-32) pg RDW 16.0 H (13.2-15.2) % Lymph % (Auto) 8.4 L (13.4-35.0) % [place] % (Auto) 11.7 H (0.0-7.3) % [place] # 1.6 H (0.0-0.8) K/mm3 Seg Neutrophils % 78.7 H (40.0-70.0) % Seg Neutrophils # 10.8 H (1.8-7.7) K/mm3 PT (12.2-14.9) Sec. INR (0.87-1.13) Calcium 8.3 L (8.4-10.2) mg/dL Crossmatch See Detail 10/10/16 10/10/16 Range/Units 16:38 16:38 WBC (4.5-11.0) K/mm3 RBC (3.65-5.03) M/mm3 Hgb 8.7 L (11.8-15.2) gm/dl Hct 27.1 L (35.5-45.6) % MCV (84-94) fl MCH (28-32) pg RDW (13.2-15.2) % Lymph % (Auto) (13.4-35.0) % [place] % (Auto) (0.0-7.3) % [place] # (0.0-0.8) K/mm3 Seg Neutrophils % (40.0-70.0) % Seg Neutrophils # (1.8-7.7) K/mm3 PT 16.1 H (12.2-14.9) Sec. INR 1.23 H (0.87-1.13) Calcium (8.4-10.2) mg/dL Crossmatch
[2016-10-10] MEDS: HEPARIN/ 0.45% NACL-25,000 UNIT/500 ML 25,000 UNIT/500 ML BAG IV SCH (18:57)
[2016-10-11] MEDS: NACL 0.9% 1000 ML 1,000 ML IV SCH (04:09)
[2016-10-11] MEDS ORDERED: HEPARIN 10,000 UNITS/10 ML IV ONE ×2 (04:16→22:44)
[2016-10-11] MEDS: ZOSYN/NS 4.5GM/100ML 4.5 GM/100 ML VIAL IV SCH ×3 (06:18→22:36)
--- NOTE | 2016-10-11 09:23 | Progress Note ---
Assessment and Plan Pt feeling well. no specific compl. angella solid breakfast diet Abd soft, non tender s/p successful CT guided drainange & biopsy -- purulent collection? secondary to ? necrotizing tumor? portal vein thrombosis? Colonoscopy biopsies neg benign tissue eval appreciated for cysto in near future will discuss with , IR & hosptialist prior to any further recommendations Selected Entries 10/11/16 07:00 Temperature 97.8 F Pulse Rate 73 Respiratory 18 Rate Blood Pressure 130/83 Objective Vital Signs - 12hr 10/10/16 10/11/16 10/11/16 22:00 00:00 04:00 Temperature 98.0 F Pulse Rate 80 74 Respiratory 18 20 18 Rate Respiratory 18 Rate [no pain] Blood Pressure 118/75 130/85 O2 Sat by Pulse 98 97 Oximetry 10/11/16 07:00 Temperature 97.8 F Pulse Rate 73 Respiratory 18 Rate Respiratory Rate [no pain] Blood Pressure 130/83 O2 Sat by Pulse 98 Oximetry - Labs 10/10/16 16:38 10/10/16 06:41
--- NOTE | 2016-10-11 10:19 | Consultation ---
History of Present Illness - Reason for Consult Consult date: 10/11/16 - History of Present Illness Patient seen/examined, labs/scan reviewed. case d/w patient and family.He is already started on Hepain IV as i have discussed with Dr Mariscal yesterday. He will eventually transitioned to coumadin. W/up is in progress. 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 Past History Past Medical History: No medical history, other (reviewed) Past Surgical History: No surgical history, Other (reviewed) Social history: single. denies: smoking, alcohol abuse, prescription drug abuse Family history: hypertension Medications and Allergies Allergies Allergy/AdvReac Type Severity Reaction Status Date / Time No Known Allergies Allergy Verified 10/07/16 20:36 Home Medications Medication Instructions Recorded Confirmed Last Taken Type No Known Home Medications [No 10/09/16 10/09/16 Unknown History Reported Home Medications] Active Meds: Active Medications Acetaminophen (Tylenol) 650 mg PO Q4H PRN PRN Reason: Pain MILD(1-3)/Fever >100.5/THOMAS Last Admin: 10/10/16 03:12 Dose: 650 mg Albuterol (Proventil) 2.5 mg IH Q4HRT PRN PRN Reason: Shortness Of Breath Piperacillin Sod/Tazobactam Sod (Zosyn/Ns 4.5gm/100ml) 4.5 gm in 100 mls @ 200 mls/hr IV Q8HR JÚNIOR PRN Reason: Protocol Last Admin: 10/11/16 06:18 Dose: 200 mls/hr Sodium Chloride (Nacl 0.9% 1000 Ml) 1,000 mls @ 50 mls/hr IV DIRECT JÚNIOR Last Admin: 10/11/16 04:09 Dose: 50 mls/hr Heparin Sodium/Sodium Chloride (Heparin/ 0.45% Nacl-25,000 Unit/500 Ml) 25,000 unit in 500 mls @ 21 mls/hr IV TITR JÚNIOR; 1,050 UNITS/HR PRN Reason: Protocol Last Titration: 10/11/16 04:20 Dose: 1,250 units/hr, 25 mls/hr Morphine Sulfate (Morphine) 2 mg IV Q4H PRN PRN Reason: Pain, Moderate (4-6) Last Admin: 10/09/16 13:08 Dose: 2 mg Ondansetron HCl (Zofran) 4 mg IV Q8H PRN PRN Reason: N/V unrelieved by Gerardo Review of Systems Constitutional: fatigue Exam - Constitutional Vitals: Temp Pulse Resp BP Pulse Ox 97.8 F 73 18 130/83 98 10/11/16 07:00 10/11/16 07:00 10/11/16 07:00 10/11/16 07:00 10/11/16 07:00 General appearance: Present: mild distress, well-nourished - EENT Eyes: Present: PERRL ENT: hearing intact, clear oral mucosa - Neck Neck: Present: supple, normal ROM - Respiratory Respiratory effort: normal Respiratory: bilateral: CTA - Cardiovascular Heart Sounds: Present: S1 & S2. Absent: rub, click - Extremities Extremities: pulses symmetrical, No edema Peripheral Pulses: within normal limits - Abdominal General gastrointestinal: Present: soft, non-tender, non-distended, normal bowel sounds Male genitourinary: Present: deferred - Rectal Rectal Exam: deferred - Integumentary Integumentary: Present: clear, warm, dry - Musculoskeletal Musculoskeletal: gait normal, strength equal bilaterally - Psychiatric Psychiatric: appropriate mood/affect, intact judgment & insight - Neurologic Neurologic: CNII-XII intact, moves all extremities Results - Labs CBC & Chem 7: 10/10/16 16:38 10/10/16 06:41 Labs: Abnormal lab results 10/10/16 10/10/16 10/11/16 Range/Units 16:38 16:38 00:46 Hgb 8.7 L (11.8-15.2) gm/dl Hct 27.1 L (35.5-45.6) % PT 16.1 H (12.2-14.9) Sec. INR 1.23 H (0.87-1.13) Heparin Anti-Xa Level < 0.10 L (0.3-0.7) U.I./ml Assessment and Plan - Patient Problems (1) Abdominal pain, acute, bilateral lower quadrant Current Visit: Yes Status: Acute Plan to address problem: This is due to the mass effect. improved as per patient. Patient now have portal vein thrombosis. and will continue anticoagulation. (2) Anemia Current Visit: Yes Status: Acute Qualifiers: Anemia type: iron deficiency Iron deficiency anemia type: chronic blood loss Vitamin B12 deficiency anemia type: V Folate deficiency anemia type: F Bone marrow failure anemia type: B Hemolytic anemia type: H Other causes of anemia: O Chronic kidney disease stage: C Qualified Code(s): D50.0 - Iron deficiency anemia secondary to blood loss (chronic) Plan to address problem: Replacement when indicated. better post transfusion. (3) Mass of colon Current Visit: Yes Status: Acute Plan to address problem: await colonoscopy with tissue bx, then path report.
--- NOTE | 2016-10-11 14:32 | Progress Note ---
Assessment and Plan Assessment and plan: CT reviewed and showed extensive right portal vein thrombosis - Patient is placed on heparin drip - We will follow H&H closely and also look for any bleeding Abdominal pain: - From mass effect vs abscess - Drainage of abscess was done by interventional radiologist and about 25 mL of purulent fluid was drained - Patient is on IV antibiotics - ID consult placed Pelvic mass - GI consulted and colonoscopy showed pus coming from the localized area of the colon, couldn't visualize fully because of the poor prep - Oncology, surgery & urology consult appreciated - will have cystoscopy next week/ or as an O/P Sepsis of GI focus - Treated with IV antibiotics and fluids according to sepsis protocol Peritonitis - Iv antibiotics 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 Hospitalist Physical - Physical exam Narrative exam: Not in cardiopulmonary distress. The patient appeared chronically sick looking. Vital signs as documented. Head exam is unremarkable. No scleral icterus . Neck is without jugular venous distension, thyromegaly, or carotid bruits. Lungs are clear to auscultation. Cardiac exam reveals regular rate and Rhythm. First and second heart sounds normal. No murmurs, rubs or gallops. Abdominal exam reveals non tender, no guarding or rigidity. Extremities are nonedematous and both femoral and pedal pulses are normal. HOUSING SPECIALIST: Alert and oriented 3. No focal weakness. - Constitutional Vitals: Temp Pulse Resp BP Pulse Ox 97.6 F 79 18 125/87 98 10/11/16 11:00 10/11/16 11:00 10/11/16 11:00 10/11/16 11:00 10/11/16 11:20 General appearance: Present: mild distress, well-nourished Results - Labs CBC & Chem 7: 10/10/16 16:38 10/10/16 06:41 Labs: Laboratory Last Values WBC 13.7 K/mm3 (4.5-11.0) H 10/10/16 06:41 RBC 3.27 M/mm3 (3.65-5.03) L 10/10/16 06:41 Hgb 8.7 gm/dl (11.8-15.2) L 10/10/16 16:38 Hct 27.1 % (35.5-45.6) L 10/10/16 16:38 MCV 78 fl (84-94) L 10/10/16 06:41 MCH 25 pg (28-32) L 10/10/16 06:41 MCHC 33 % (32-34) 10/10/16 06:41 RDW 16.0 % (13.2-15.2) H 10/10/16 06:41 Plt Count 327 K/mm3 (140-440) 10/10/16 16:38 Lymph % (Auto) 8.4 % (13.4-35.0) L 10/10/16 06:41 [place] % (Auto) 11.7 % (0.0-7.3) H 10/10/16 06:41 Eos % (Auto) 0.9 % (0.0-4.3) 10/10/16 06:41 Baso % (Auto) 0.3 % (0.0-1.8) 10/10/16 06:41 Lymph # 1.2 K/mm3 (1.2-5.4) 10/10/16 06:41 [place] # 1.6 K/mm3 (0.0-0.8) H 10/10/16 06:41 Eos # 0.1 K/mm3 (0.0-0.4) 10/10/16 06:41 Baso # 0.0 K/mm3 (0.0-0.1) 10/10/16 06:41 Seg Neutrophils % 78.7 % (40.0-70.0) H 10/10/16 06:41 Seg Neutrophils # 10.8 K/mm3 (1.8-7.7) H 10/10/16 06:41 ESR 73 mm/Hr (0-20) 10/11/16 10:56 PT 16.1 Sec. (12.2-14.9) H 10/10/16 16:38 INR 1.23 (0.87-1.13) H 10/10/16 16:38 APTT 26.4 Sec. (24.2-36.6) 10/10/16 16:38 Heparin Anti-Xa Level < 0.10 U.I./ml (0.3-0.7) L 10/11/16 10:56 Sodium 142 mmol/L (137-145) D 10/10/16 06:41 Potassium 3.8 mmol/L (3.6-5.0) 10/10/16 06:41 Chloride 104.1 mmol/L (98-107) 10/10/16 06:41 Carbon Dioxide 22 mmol/L (22-30) 10/10/16 06:41 Anion Gap 20 mmol/L 10/10/16 06:41 BUN 17 mg/dL (9-20) 10/10/16 06:41 Creatinine 0.9 mg/dL (0.8-1.5) 10/10/16 06:41 Estimated GFR > 60 ml/min 10/10/16 06:41 BUN/Creatinine Ratio 18.88 % 10/10/16 06:41 Glucose 99 mg/dL (75-100) 10/10/16 06:41 Lactic Acid 1.10 mmol/L (0.7-2.0) 10/08/16 06:19 Calcium 8.3 mg/dL (8.4-10.2) L 10/10/16 06:41 Iron 16 ug/dL (49-181) L 10/08/16 21:29 TIBC 89 mcg/dL (250-450) L 10/08/16 21:29 Ferritin 1101.0 ng/mL (13.0-400.0) H 10/08/16 21:31 Total Bilirubin 1.70 mg/dL (0.1-1.2) H 10/07/16 17:20 AST 57 units/L (5-40) H 10/07/16 17:20 ALT 42 units/L (7-56) 10/07/16 17:20 Alkaline Phosphatase 269 units/L (35-129) H 10/07/16 17:20 Lactate Dehydrogenase 157 units/L (91-180) 10/08/16 21:29 Total Protein 8.4 g/dL (6.3-8.2) H 10/07/16 17:20 Albumin 2.7 g/dL (3.9-5) L 10/07/16 17:20 Albumin/Globulin Ratio 0.5 % 10/07/16 17:20 Lipase 17 units/L (13-60) 10/07/16 22:00 TSH 3.000 mlU/mL (0.270-4.200) 10/07/16 17:20 Free T4 0.89 ng/dL (0.76-1.46) 10/07/16 17:20 Urine Color Yellow (Yellow) 10/07/16 Unknown Urine Turbidity Slightly-cloudy (Clear) 10/07/16 Unknown Urine pH 5.0 (5.0-7.0) 10/07/16 Unknown Ur Specific [place] 1.034 (1.003-1.030) H 10/07/16 Unknown Urine Protein 30 mg/dl mg/dL (Negative) 10/07/16 Unknown Urine Glucose (UA) Neg mg/dL (Negative) 10/07/16 Unknown Urine Ketones Neg mg/dL (Negative) 10/07/16 Unknown Urine Blood Mod (Negative) 10/07/16 Unknown Urine Nitrite Neg (Negative) 10/07/16 Unknown Urine Bilirubin Neg (Negative) 10/07/16 Unknown Urine Urobilinogen 4.0 mg/dL (<2.0) 10/07/16 Unknown Ur Leukocyte Esterase Lg (Negative) 10/07/16 Unknown Urine WBC (Auto) 78.0 /HPF (0.0-6.0) H 10/07/16 Unknown Urine RBC (Auto) 10.0 /HPF (0.0-6.0) 10/07/16 Unknown U Epithel Cells (Auto) 3.0 /HPF (0-13.0) 10/07/16 Unknown Urine Bacteria (Auto) 1+ /HPF (Negative) 10/07/16 Unknown Hyaline Casts 11 /LPF 10/07/16 Unknown Urine Mucus 1+ /HPF 10/07/16 Unknown HIV 1&2 Antibody Rapid Non react (Non React) 10/08/16 21:20 HIV P24 Antigen Non react (Non React) 10/08/16 21:20 Blood Type O POSITIVE 10/08/16 00:30 Antibody Screen TNR 10/08/16 00:30 DANGELO Antibody Screen Negative 10/08/16 00:30 Crossmatch See Detail 10/08/16 00:30
--- NOTE | 2016-10-11 14:50 | Consultation ---
History of Present Illness - Reason for Consult Consult date: 10/11/16 Pelvic Abscess Requesting physician: RIA MACK - History of Present Illness Mr. Manzanares is a 61-year-old man with a history of prostate enlargement who presented with abdominal and pelvic pain over several weeks. He also described bowel incontinence with urination and occasional blood per rectum. A CT abdomen / pelvis on admission showed a 10.9 X 8.0 cm heterogeneous, posterior urinary bladder mass associated with the rectosigmoid colon. There is associated left hydronephrosis. The collection was sampled with copious purulence seen. Fluid was submitted for bacterial and AFB culture and shows presence of Gram positive cocci in pairs. A drain was left in place with continued output of pus. Malignancy is considered and path results are pending. He is empirically on Zosyn. ID consultation is requested for further antimicrobial management. Past History Past Medical History: other (benign prostate hypertrophy) Past Surgical History: No surgical history Social history: single. denies: smoking, alcohol abuse, prescription drug abuse Family history: hypertension. denies: cancer Medications and Allergies Allergies Allergy/AdvReac Type Severity Reaction Status Date / Time No Known Allergies Allergy Verified 10/07/16 20:36 Home Medications Medication Instructions Recorded Confirmed Last Taken Type No Known Home Medications [No 10/09/16 10/09/16 Unknown History Reported Home Medications] Active Meds: Active Medications Acetaminophen (Tylenol) 650 mg PO Q4H PRN PRN Reason: Pain MILD(1-3)/Fever >100.5/THOMAS Last Admin: 10/10/16 03:12 Dose: 650 mg Albuterol (Proventil) 2.5 mg IH Q4HRT PRN PRN Reason: Shortness Of Breath Piperacillin Sod/Tazobactam Sod (Zosyn/Ns 4.5gm/100ml) 4.5 gm in 100 mls @ 200 mls/hr IV Q8HR JÚNIOR PRN Reason: Protocol Last Admin: 10/11/16 14:31 Dose: 200 mls/hr Sodium Chloride (Nacl 0.9% 1000 Ml) 1,000 mls @ 50 mls/hr IV DIRECT JÚNIOR Last Admin: 10/11/16 04:09 Dose: 50 mls/hr Heparin Sodium/Sodium Chloride (Heparin/ 0.45% Nacl-25,000 Unit/500 Ml) 25,000 unit in 500 mls @ 21 mls/hr IV TITR JÚNIOR; 1,050 UNITS/HR PRN Reason: Protocol Last Titration: 10/11/16 13:55 Dose: 1,400 units/hr, 28 mls/hr Morphine Sulfate (Morphine) 2 mg IV Q4H PRN PRN Reason: Pain, Moderate (4-6) Last Admin: 10/09/16 13:08 Dose: 2 mg Ondansetron HCl (Zofran) 4 mg IV Q8H PRN PRN Reason: N/V unrelieved by Reglan Review of Systems All systems: negative Constitutional: no weight loss, no fever, no chills, no weakness Cardiovascular: no chest pain, no palpitations, no shortness of breath Respiratory: no cough, no shortness of breath Gastrointestinal: abdominal pain, diarrhea (occasional), BRBPR, no nausea, no vomiting, no jaundice Genitourinary Male: no dysuria, no hematuria, no discharge, no genital sores, no kidney stones Integumentary: no rash Hematologic/Lymphatic: no lymphadenopathy Physical Examination - Constitutional Vitals: Vital Signs Temp Pulse Resp BP Pulse Ox 97.6 F 79 18 125/87 98 10/11/16 11:00 10/11/16 11:00 10/11/16 11:00 10/11/16 11:00 10/11/16 11:20 Temperature -Last 24 Hours Temperature 97.6 F Temperature 97.8 F Temperature 98.0 F Temperature 97.6 F Temperature 97.9 F General appearance: Present: no acute distress. Absent: cachectic - EENT Eyes: Absent: scleral icterus, conjunctival injection ENT: other (poor dentition with several absent teeh) - Respiratory Respiratory effort: normal Respiratory: bilateral: CTA - Cardiovascular Rhythm: regular Heart Sounds: Present: S1 & S2 - Extremities Extremities: No edema - Abdominal General gastrointestinal: Present: soft, non-tender, distended, normal bowel sounds, other (percutaneous drain at LLQ with a scant amount of seropurulent output) Male genitourinary: Present: normal (Rush catheter, no penile lesions or swelling) - Integumentary Integumentary: Present: clear. Absent: jaundice - Psychiatric Psychiatric: appropriate mood/affect - Neurologic Neurologic: no focal deficits Results - Labs CBC & Chem 7: 10/10/16 16:38 10/10/16 06:41 Labs: Abnormal lab results 10/10/16 10/10/16 10/11/16 Range/Units 16:38 16:38 00:46 Hgb 8.7 L (11.8-15.2) gm/dl Hct 27.1 L (35.5-45.6) % PT 16.1 H (12.2-14.9) Sec. INR 1.23 H (0.87-1.13) Heparin Anti-Xa Level < 0.10 L (0.3-0.7) U.I./ml 10/11/16 Range/Units 10:56 Hgb (11.8-15.2) gm/dl Hct (35.5-45.6) % PT (12.2-14.9) Sec. INR (0.87-1.13) Heparin Anti-Xa Level < 0.10 L (0.3-0.7) U.I./ml Microbiology 10/10/16 15:00 Abdomen Surgical Culture - Preliminary (Gram postive cocci pairs) 10/08/16 15:52 Peripheral/Venous Blood Culture - Preliminary NO GROWTH AFTER 48 HOURS 10/08/16 15:28 Peripheral/Venous Blood Culture - Preliminary NO GROWTH AFTER 48 HOURS - Imaging and Cardiology CT scan - abdomen: report reviewed CT scan - pelvis: report reviewed US - abdomen: report reviewed (cholelithiasis with possible cholecystitis) Assessment and Plan - Patient Problems (1) Abscess, bladder Current Visit: Yes Status: Acute Plan to address problem: 1. Zosyn is an appropriate empiric antibiotic pending further data. 2. I am screening the patient for HIV infection, also evidence of Entamoeba histolytica, chronic hepatitis infection and GC/chlamydia. 3. Await path results.
[2016-10-11 17:48] LABS: HIV-1 Antigen p24 Non React (Non React); HIVR-1/2 Ab Non React (Non React)
[2016-10-11] MEDS: HEPARIN/ 0.45% NACL-25,000 UNIT/500 ML 25,000 UNIT/500 ML BAG IV SCH (18:31)
[2016-10-11] MEDS ORDERED: HEPARIN 10,000 UNITS/10 ML ONE (22:16)
[2016-10-12 05:47] LABS: Basophils % (Auto) 0.5 % (0.0-1.8); Eosinophils % (Auto) 1.1 % (0.0-4.3); Hematocrit 24.8 % (35.5-45.6); Hemoglobin 8.3 gm/dl (11.8-15.2); Mean Corpuscular HGB Conc 33 % (32-34); Mean Corpuscular Volume 78 fl (84-94); Platelet Count 367 K/mm3 (140-440); Red Cell Distribution Width 16.1 % (13.2-15.2); White Blood Count 14.6 K/mm3 (4.5-11.0)
[2016-10-12 05:54] LABS: Mean Corpuscular Hemoglobin 26 pg (28-32)
[2016-10-12 06:12] LABS: Anion Gap 14 mmol/L; Blood Urea Nitrogen 10 mg/dL (9-20); Calcium 7.8 mg/dL (8.4-10.2); Carbon Dioxide 23 mmol/L (22-30); Chloride 106.8 mmol/L (98-107); Glucose 91 mg/dL (75-100); Potassium 3.5 mmol/L (3.6-5.0); Sodium 140 mmol/L (137-145)
[2016-10-12] MEDS: ZOSYN/NS 4.5GM/100ML 4.5 GM/100 ML VIAL IV SCH ×3 (07:05→22:32)
[2016-10-12] MEDS ORDERED: K-DUR PO ONE (07:43)
[2016-10-12] MEDS ORDERED: NACL ONE ×2 (07:52→11:59)
[2016-10-12] MEDS: NORVASC PO SCH (09:40)
[2016-10-12] MEDS: HEPARIN/ 0.45% NACL-25,000 UNIT/500 ML 25,000 UNIT/500 ML BAG IV SCH ×3 (10:15→23:52)
--- NOTE | 2016-10-12 12:06 | Progress Note ---
Assessment and Plan Assessment and plan: CT reviewed and showed extensive right portal vein thrombosis - Patient is placed on heparin drip - We will follow H&H closely and also look for any bleeding Abdominal pain: - From mass effect vs abscess - Drainage of abscess was done by interventional radiologist and about 25 mL of purulent fluid was drained - Patient is on IV antibiotics - ID consult placed Pelvic mass - GI consulted and colonoscopy showed pus coming from the localized area of the colon, couldn't visualize fully because of the poor prep - Oncology, surgery & urology consult appreciated - will have cystoscopy next week/ or as an O/P - I will do a repeat CT abdomen today Sepsis of GI focus - ID consult appreciated and recommended to continue Zosyn Anemia secondary to anemia of chronic disease and blood loss - Hemoglobin and hematocrit is stable DVT prophylaxis - On heparin drip Disposition - continue inpatient care History Interval history: Patient was seen and evaluated this AM, abdominal pain subsided, patient feeling better, no fever overnight. Hospitalist Physical - Physical exam Narrative exam: Not in cardiopulmonary distress. The patient appeared chronically sick looking. Vital signs as documented. Head exam is unremarkable. No scleral icterus . Neck is without jugular venous distension, thyromegaly, or carotid bruits. Lungs are clear to auscultation. Cardiac exam reveals regular rate and Rhythm. First and second heart sounds normal. No murmurs, rubs or gallops. Abdominal exam reveals non tender, no guarding or rigidity. Extremities are nonedematous and both femoral and pedal pulses are normal. INSTRUMENT PROCESSING TECH: Alert and oriented 3. No focal weakness. - Constitutional Vitals: Temp Pulse Resp BP Pulse Ox 98.9 F 71 18 156/94 97 10/12/16 07:05 10/12/16 07:05 10/12/16 07:05 10/12/16 07:05 10/12/16 07:05 General appearance: Present: no acute distress. Absent: cachectic Results - Labs CBC & Chem 7: 10/12/16 05:05 10/12/16 05:05 Labs: Laboratory Last Values WBC 14.6 K/mm3 (4.5-11.0) H 10/12/16 05:05 RBC 3.20 M/mm3 (3.65-5.03) L 10/12/16 05:05 Hgb 8.3 gm/dl (11.8-15.2) L 10/12/16 05:05 Hct 24.8 % (35.5-45.6) L 10/12/16 05:05 MCV 78 fl (84-94) L 10/12/16 05:05 MCH 26 pg (28-32) L 10/12/16 05:05 MCHC 33 % (32-34) 10/12/16 05:05 RDW 16.1 % (13.2-15.2) H 10/12/16 05:05 Plt Count 367 K/mm3 (140-440) 10/12/16 05:05 Lymph % (Auto) 12.2 % (13.4-35.0) L 10/12/16 05:05 [place] % (Auto) 7.6 % (0.0-7.3) H 10/12/16 05:05 Eos % (Auto) 1.1 % (0.0-4.3) 10/12/16 05:05 Baso % (Auto) 0.5 % (0.0-1.8) 10/12/16 05:05 Lymph # 1.8 K/mm3 (1.2-5.4) 10/12/16 05:05 Curry # 1.1 K/mm3 (0.0-0.8) H 10/12/16 05:05 Eos # 0.2 K/mm3 (0.0-0.4) 10/12/16 05:05 Baso # 0.1 K/mm3 (0.0-0.1) 10/12/16 05:05 Seg Neutrophils % 78.6 % (40.0-70.0) H 10/12/16 05:05 Seg Neutrophils # 11.5 K/mm3 (1.8-7.7) H 10/12/16 05:05 ESR 73 mm/Hr (0-20) 10/11/16 10:56 PT 16.1 Sec. (12.2-14.9) H 10/10/16 16:38 INR 1.23 (0.87-1.13) H 10/10/16 16:38 APTT 26.4 Sec. (24.2-36.6) 10/10/16 16:38 Heparin Anti-Xa Level 0.25 U.I./ml (0.3-0.7) L 10/12/16 05:05 Sodium 140 mmol/L (137-145) 10/12/16 05:05 Potassium 3.5 mmol/L (3.6-5.0) L 10/12/16 05:05 Chloride 106.8 mmol/L (98-107) 10/12/16 05:05 Carbon Dioxide 23 mmol/L (22-30) 10/12/16 05:05 Anion Gap 14 mmol/L 10/12/16 05:05 BUN 10 mg/dL (9-20) 10/12/16 05:05 Creatinine 0.8 mg/dL (0.8-1.5) 10/12/16 05:05 Estimated GFR > 60 ml/min 10/12/16 05:05 BUN/Creatinine Ratio 12.50 % 10/12/16 05:05 Glucose 91 mg/dL (75-100) 10/12/16 05:05 Lactic Acid 1.10 mmol/L (0.7-2.0) 10/08/16 06:19 Calcium 7.8 mg/dL (8.4-10.2) L 10/12/16 05:05 Iron 16 ug/dL (49-181) L 10/08/16 21:29 TIBC 89 mcg/dL (250-450) L 10/08/16 21:29 Ferritin 1101.0 ng/mL (13.0-400.0) H 10/08/16 21:31 Total Bilirubin 1.70 mg/dL (0.1-1.2) H 10/07/16 17:20 AST 57 units/L (5-40) H 10/07/16 17:20 ALT 42 units/L (7-56) 10/07/16 17:20 Alkaline Phosphatase 269 units/L (35-129) H 10/07/16 17:20 Lactate Dehydrogenase 157 units/L (91-180) 10/08/16 21:29 Total Protein 8.4 g/dL (6.3-8.2) H 10/07/16 17:20 Albumin 2.7 g/dL (3.9-5) L 10/07/16 17:20 Albumin/Globulin Ratio 0.5 % 10/07/16 17:20 [id number] 4.38 mg/L (<=2.51) H 10/08/16 21:20 Lipase 17 units/L (13-60) 10/07/16 22:00 TSH 3.000 mlU/mL (0.270-4.200) 10/07/16 17:20 Free T4 0.89 ng/dL (0.76-1.46) 10/07/16 17:20 Urine Color Yellow (Yellow) 10/07/16 Unknown Urine Turbidity Slightly-cloudy (Clear) 10/07/16 Unknown Urine pH 5.0 (5.0-7.0) 10/07/16 Unknown Ur Specific [place] 1.034 (1.003-1.030) H 10/07/16 Unknown Urine Protein 30 mg/dl mg/dL (Negative) 10/07/16 Unknown Urine Glucose (UA) Neg mg/dL (Negative) 10/07/16 Unknown Urine Ketones Neg mg/dL (Negative) 10/07/16 Unknown Urine Blood Mod (Negative) 10/07/16 Unknown Urine Nitrite Neg (Negative) 10/07/16 Unknown Urine Bilirubin Neg (Negative) 10/07/16 Unknown Urine Urobilinogen 4.0 mg/dL (<2.0) 10/07/16 Unknown Ur Leukocyte Esterase Lg (Negative) 10/07/16 Unknown Urine WBC (Auto) 78.0 /HPF (0.0-6.0) H 10/07/16 Unknown Urine RBC (Auto) 10.0 /HPF (0.0-6.0) 10/07/16 Unknown U Epithel Cells (Auto) 3.0 /HPF (0-13.0) 10/07/16 Unknown Urine Bacteria (Auto) 1+ /HPF (Negative) 10/07/16 Unknown Hyaline Casts 11 /LPF 10/07/16 Unknown Urine Mucus 1+ /HPF 10/07/16 Unknown Hep Bs Antigen Non-reactive (Negative) 10/11/16 16:49 Hepatitis C Antibody Non-reactive (NonReactive) 10/11/16 16:42 HIV 1&2 Antibody Rapid Non react (Non React) 10/11/16 16:50 HIV P24 Antigen Non react (Non React) 10/11/16 16:50 Blood Type O POSITIVE 10/08/16 00:30 Antibody Screen TNR 10/08/16 00:30 DANGELO Antibody Screen Negative 10/08/16 00:30 Crossmatch See Detail 10/08/16 00:30
--- NOTE | 2016-10-12 13:39 | Cat Scan Report ---
CT ABDOMEN AND PELVIS WITH CONTRAST: 10/08/16 00:12:00 CLINICAL: Followup portal vein thrombosis and pelvic abscess drainage. COMPARISON: None. TECHNIQUE: Volumetric acquisition and 1.25 millimeter scan reconstructions after the uneventful intravenous injection of 100 cc Omnipaque 300. Consent was obtained prior to the administration of contrast. Oral contrast was also given. FINDINGS: Abdomen: The liver is enlarged with the right lobe measuring 17 cm in length. Geographic hypodensity of the right lobe of the liver and complete thrombosis of the right portal vein and its branches. The left portal vein and main portal vein are patent. A string of thrombus is identified left portal vein is not significantly changed compared to the prior exam. The spleen vein and superior mesenteric vein are patent. No liver mass. The gallbladder and bile ducts are normal. The stomach, duodenum, pancreas and spleen are normal. Persistent left hydronephrosis and left hydroureter. The ureter is dilated to the pelvis as on the previous exam. Small bowel and colon are normal. The appendix is normal. Pelvis: The previous described septated left pelvic mass has significantly reduced in size. There is a drainage catheter in a residual fluid collection. The complex mass now measures 5.0 x 2.7 cm with minimal residual fluid and no air. Abnormal soft tissue mass extends along the left pelvis in the posterior pararenal space and extends from the left groin to the rectum. The left external iliac vein is thrombosed. However, the left common iliac vein is normally opacified and there is no thrombus extending into the IVC. A long segment of rectal wall thickening and thickening of the sigmoid colon wall which is adjacent to the soft tissue mass of the left pelvis. A 4 cm oval smooth calculus in the urinary bladder. The urinary bladder wall is thickened and the is contiguous to the soft tissue mass extending along the left pelvis. A Rush catheter is in place. Calcifications are identified in an enlarged prostate. Bone windows demonstrate no bone lesion. IMPRESSION:1. Decreased size of septated left pelvic mass which is presumably an abscess with a drainage catheter. 2. Thrombosis of the left external iliac vein. The thrombus may extend into the left common femoral vein. However, no extension to the common iliac vein or IVC. 3. Right portal vein thrombosis and transient hepatic attenuation difference in the right lobe of the liver. 4. Wall thickening of the rectum and sigmoid colon is suggestive of tumor. 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
--- NOTE | 2016-10-12 17:22 | Progress Note ---
Assessment and Plan - Patient Problems (1) Abscess, bladder Current Visit: Yes Status: Acute Plan to address problem: Zosyn is an appropriate empiric therapy pending further micro and path results from mass. Highest suspicion for tumor with possible superimposed bacterial infection. Await results of outstanding infectious eval, however this does not preclude aggressive evaluation for other etiologies. (2) Mass of colon Current Visit: Yes Status: Acute Subjective Date of service: 10/12/16 Principal diagnosis: Pelvic Abscess/ Mass; Venous Thromboses Interval history: Stable without new events overnight. Continued stool incontinence. Objective - Constitutional Vitals: Vital Signs Temp Pulse Resp BP Pulse Ox 98.6 F 75 20 153/83 97 10/12/16 15:30 10/12/16 15:30 10/12/16 15:30 10/12/16 15:30 10/12/16 07:05 Temperature -Last 24 Hours Temperature 98.6 F Temperature 98.9 F Temperature 98.0 F Temperature 98.7 F Temperature 99.1 F General appearance: Present: no acute distress - EENT Eyes: no scleral icterus - Respiratory Respiratory effort: normal Respiratory: bilateral: CTA - Cardiovascular Rhythm: regular Heart Sounds: Present: S1 & S2 Extremities: No edema - Gastrointestinal General gastrointestinal: Present: soft, non-tender, distended, other (LLQ drain with serosanguinous output, scant purulence seen) - Integumentary Integumentary: no jaundice, no rash - Neurologic Neurologic: no focal deficits, moves all extremities - Psychiatric Psychiatric: appropriate mood/affect - Labs CBC & Chem 7: 10/12/16 05:05 10/12/16 05:05 Labs: Abnormal lab results 10/11/16 10/12/16 10/12/16 Range/Units 20:13 05:05 05:05 WBC 14.6 H (4.5-11.0) K/mm3 RBC 3.20 L (3.65-5.03) M/mm3 Hgb 8.3 L (11.8-15.2) gm/dl Hct 24.8 L (35.5-45.6) % MCV 78 L (84-94) fl MCH 26 L (28-32) pg RDW 16.1 H (13.2-15.2) % Lymph % (Auto) 12.2 L (13.4-35.0) % [place] % (Auto) 7.6 H (0.0-7.3) % [place] # 1.1 H (0.0-0.8) K/mm3 Seg Neutrophils % 78.6 H (40.0-70.0) % Seg Neutrophils # 11.5 H (1.8-7.7) K/mm3 Heparin Anti-Xa Level < 0.10 L (0.3-0.7) U.I./ml Potassium 3.5 L (3.6-5.0) mmol/L Calcium 7.8 L (8.4-10.2) mg/dL 10/12/16 Range/Units 05:05 WBC (4.5-11.0) K/mm3 RBC (3.65-5.03) M/mm3 Hgb (11.8-15.2) gm/dl Hct (35.5-45.6) % MCV (84-94) fl MCH (28-32) pg RDW (13.2-15.2) % Lymph % (Auto) (13.4-35.0) % [place] % (Auto) (0.0-7.3) % [place] # (0.0-0.8) K/mm3 Seg Neutrophils % (40.0-70.0) % Seg Neutrophils # (1.8-7.7) K/mm3 Heparin Anti-Xa Level 0.25 L (0.3-0.7) U.I./ml Potassium (3.6-5.0) mmol/L Calcium (8.4-10.2) mg/dL Microbiology 10/08/16 15:52 Peripheral/Venous Blood Culture - Preliminary NO GROWTH AFTER 4 DAYS 10/08/16 15:28 Peripheral/Venous Blood Culture - Preliminary NO GROWTH AFTER 4 DAYS 10/10/16 15:00 Abdomen Surgical Culture - Preliminary - Imaging and cardiology CT scan - abdomen: report reviewed (decreased interval size of septated left pelvic mass; thrombus of left external iliac, left common femoral, right portal vein thrombosis; rectosigmoid colon wall thickening with direct extension of apparent tumor to left pelvic sidewall with obstruction of left ureter)
[2016-10-12] MEDS ORDERED: LOMOTIL PO PRN (17:54)
[2016-10-12] MEDS: IMODIUM PO PRN ×2 (18:54→22:32)
[2016-10-12] MEDS: NACL 0.9% 1000 ML 1,000 ML IV SCH (23:51)
[2016-10-13] MEDS: ZOSYN/NS 4.5GM/100ML 4.5 GM/100 ML VIAL IV SCH ×3 (06:13→22:19)
[2016-10-13 06:36] LABS: Hematocrit 24.5 % (35.5-45.6); Hemoglobin 8.1 gm/dl (11.8-15.2); Mean Corpuscular HGB Conc 33 % (32-34); Mean Corpuscular Volume 78 fl (84-94); Platelet Count 385 K/mm3 (140-440); Red Blood Count 3.15 M/mm3 (3.65-5.03); Red Cell Distribution Width 16.4 % (13.2-15.2); White Blood Count 14.9 K/mm3 (4.5-11.0)
[2016-10-13 06:50] LABS: Mean Corpuscular Hemoglobin 26 pg (28-32)
[2016-10-13 06:52] LABS: Anion Gap 14 mmol/L; BUN/Creatinine Ratio 8.88; Blood Urea Nitrogen 8 mg/dL (9-20); Calcium 8.1 mg/dL (8.4-10.2); Carbon Dioxide 24 mmol/L (22-30); Chloride 107.7 mmol/L (98-107); Glucose 90 mg/dL (75-100); Potassium 3.7 mmol/L (3.6-5.0); Sodium 142 mmol/L (137-145)
[2016-10-13] MEDS: IMODIUM PO PRN ×2 (08:52→19:09)
[2016-10-13 08:54] LABS: Anisocytosis 1+; Basophils % (Manual) 0 % (0.0-1.8); Blastocytes % (Manual) 0 %; Eosinophils % (Manual) 0 % (0.0-4.3); Polychromasia 2+
[2016-10-13 08:55] LABS: Diff Status Complete; Large Platelets 1+; Platelet Estimate Cons; Target Cells Few
--- NOTE | 2016-10-13 09:06 | Progress Note ---
Assessment and Plan Assessment and plan: Abdominal pain: - From mass effect vs abscess - Drainage of abscess was done by interventional radiologist and about 25 mL of purulent fluid was drained. Drain left in. - Patient is on IV antibiotic-Zosyn Portal vein thrombosis. Patient on heparin infusion Pelvic mass - Oncology, surgery & urology following - will have cystoscopy next week/ or as an O/P Sepsis of intra-abdominal origin. continue Zosyn Anemia secondary to anemia of chronic disease and chronic blood loss - Hemoglobin and hematocrit is stable. Hemoglobin 8.1 today. May only transfuse if hemoglobin less than 7 or if there is active bleeding. DVT prophylaxis. On heparin drip History Interval history: Fever , Less abdominal pain, Hospitalist Physical - Physical exam Narrative exam: Gen appearance :Not in acute distress, HEENT: Normocephalic, atraumatic Neck: Supple, no JVD Lungs: Clear to auscultation bilaterally, no crackles, or wheezes. Heart: S1 and S2 regular, no murmurs, no gallops, rub Abdomen : Soft, non-tender, non-distended, left lower quadrant with surgical drain, dressing over site, normal bowel sounds Extremities :No edema, no clubbing or cyanosis Neuro: Awake, alert, oriented 3, normal speech, no focal neurological signs Psych: normal mood. - Constitutional Vitals: Temp Pulse Resp BP Pulse Ox 100.7 F H 72 20 148/91 97 10/13/16 08:10 10/13/16 08:10 10/13/16 08:10 10/13/16 08:10 10/13/16 08:10 General appearance: Present: no acute distress Results - Labs CBC & Chem 7: 10/13/16 05:56 10/13/16 05:56 Labs: Laboratory Last Values WBC 14.9 K/mm3 (4.5-11.0) H 10/13/16 05:56 RBC 3.15 M/mm3 (3.65-5.03) L 10/13/16 05:56 Hgb 8.1 gm/dl (11.8-15.2) L 10/13/16 05:56 Hct 24.5 % (35.5-45.6) L 10/13/16 05:56 MCV 78 fl (84-94) L 10/13/16 05:56 MCH 26 pg (28-32) L 10/13/16 05:56 MCHC 33 % (32-34) 10/13/16 05:56 RDW 16.4 % (13.2-15.2) H 10/13/16 05:56 Plt Count 385 K/mm3 (140-440) 10/13/16 05:56 Lymph % (Auto) 12.2 % (13.4-35.0) L 10/12/16 05:05 [place] % (Auto) 7.6 % (0.0-7.3) H 10/12/16 05:05 Eos % (Auto) 1.1 % (0.0-4.3) 10/12/16 05:05 Baso % (Auto) 0.5 % (0.0-1.8) 10/12/16 05:05 Lymph # 1.8 K/mm3 (1.2-5.4) 10/12/16 05:05 [place] # 1.1 K/mm3 (0.0-0.8) H 10/12/16 05:05 Eos # 0.2 K/mm3 (0.0-0.4) 10/12/16 05:05 Baso # 0.1 K/mm3 (0.0-0.1) 10/12/16 05:05 Add Manual Diff Complete 10/13/16 05:56 Total Counted 100 10/13/16 05:56 Seg Neutrophils % 78.6 % (40.0-70.0) H 10/12/16 05:05 Seg Neuts % (Manual) 84.0 % (40.0-70.0) H 10/13/16 05:56 Band Neutrophils % 3.0 % 10/13/16 05:56 Lymphocytes % (Manual) 7.0 % (13.4-35.0) L 10/13/16 05:56 Reactive Lymphs % (Man) 1.0 % 10/13/16 05:56 Monocytes % (Manual) 5.0 % (0.0-7.3) 10/13/16 05:56 Eosinophils % (Manual) 0 % (0.0-4.3) 10/13/16 05:56 Basophils % (Manual) 0 % (0.0-1.8) 10/13/16 05:56 Metamyelocytes % 0 % 10/13/16 05:56 Myelocytes % 0 % 10/13/16 05:56 Promyelocytes % 0 % 10/13/16 05:56 Blast Cells % 0 % 10/13/16 05:56 Nucleated RBC % Not Reportable 10/13/16 05:56 Seg Neutrophils # 11.5 K/mm3 (1.8-7.7) H 10/12/16 05:05 Seg Neutrophils # Man 12.5 K/mm3 (1.8-7.7) H 10/13/16 05:56 Band Neutrophils # 0.4 K/mm3 10/13/16 05:56 Lymphocytes # (Manual) 1.0 K/mm3 (1.2-5.4) L 10/13/16 05:56 Abs React Lymphs (Man) 0.1 K/mm3 10/13/16 05:56 Monocytes # (Manual) 0.7 K/mm3 (0.0-0.8) 10/13/16 05:56 Eosinophils # (Manual) 0.0 K/mm3 (0.0-0.4) 10/13/16 05:56 Basophils # (Manual) 0.0 K/mm3 (0.0-0.1) 10/13/16 05:56 Metamyelocytes # 0.0 K/mm3 10/13/16 05:56 Myelocytes # 0.0 K/mm3 10/13/16 05:56 Promyelocytes # 0.0 K/mm3 10/13/16 05:56 Blast Cells # 0.0 K/mm3 10/13/16 05:56 WBC Morphology Not Reportable 10/13/16 05:56 Hypersegmented Neuts Not Reportable 10/13/16 05:56 Hyposegmented Neuts Not Reportable 10/13/16 05:56 Hypogranular Neuts Not Reportable 10/13/16 05:56 Smudge Cells Not Reportable 10/13/16 05:56 Toxic Granulation Not Reportable 10/13/16 05:56 Toxic Vacuolation Not Reportable 10/13/16 05:56 Dohle Bodies Not Reportable 10/13/16 05:56 Pelger-Huet Anomaly Not Reportable 10/13/16 05:56 Gabriela Rods Not Reportable 10/13/16 05:56 Platelet Estimate Cons 10/13/16 05:56 Clumped Platelets Not Reportable 10/13/16 05:56 Plt Clumps, EDTA Not Reportable 10/13/16 05:56 Large Platelets 1+ 10/13/16 05:56 Giant Platelets Not Reportable 10/13/16 05:56 Platelet Satelliting Not Reportable 10/13/16 05:56 Plt Morphology Comment Not Reportable 10/13/16 05:56 RBC Morphology Not Reportable 10/13/16 05:56 Dimorphic RBCs Not Reportable 10/13/16 05:56 Polychromasia 2+ 10/13/16 05:56 Hypochromasia Not Reportable 10/13/16 05:56 Poikilocytosis Not Reportable 10/13/16 05:56 Anisocytosis 1+ 10/13/16 05:56 Microcytosis Not Reportable 10/13/16 05:56 Macrocytosis Not Reportable 10/13/16 05:56 Spherocytes Not Reportable 10/13/16 05:56 Pappenheimer Bodies Not Reportable 10/13/16 05:56 Sickle Cells Not Reportable 10/13/16 05:56 Target Cells Few 10/13/16 05:56 Tear Drop Cells Not Reportable 10/13/16 05:56 Ovalocytes Not Reportable 10/13/16 05:56 Helmet Cells Not Reportable 10/13/16 05:56 Navarro-Blencoe Bodies Not Reportable 10/13/16 05:56 [place] Rings Not Reportable 10/13/16 05:56 Bimble Cells Not Reportable 10/13/16 05:56 Bite Cells Not Reportable 10/13/16 05:56 Crenated Cell Not Reportable 10/13/16 05:56 Elliptocytes Not Reportable 10/13/16 05:56 Acanthocytes (Spur) Not Reportable 10/13/16 05:56 Rouleaux Not Reportable 10/13/16 05:56 Hemoglobin C Crystals Not Reportable 10/13/16 05:56 Schistocytes Not Reportable 10/13/16 05:56 Malaria parasites Not Reportable 10/13/16 05:56 ESR 73 mm/Hr (0-20) 10/11/16 10:56 Hollis Bodies Not Reportable 10/13/16 05:56 Hem Pathologist Commnt No 10/13/16 05:56 PT 16.1 Sec. (12.2-14.9) H 10/10/16 16:38 INR 1.23 (0.87-1.13) H 10/10/16 16:38 APTT 26.4 Sec. (24.2-36.6) 10/10/16 16:38 APC Resistance 4.6 ratio (>=2.1) 10/11/16 10:56 Heparin Anti-Xa Level 0.36 U.I./ml (0.3-0.7) 10/12/16 13:55 Sodium 142 mmol/L (137-145) 10/13/16 05:56 Potassium 3.7 mmol/L (3.6-5.0) 10/13/16 05:56 Chloride 107.7 mmol/L (98-107) H 10/13/16 05:56 Carbon Dioxide 24 mmol/L (22-30) 10/13/16 05:56 Anion Gap 14 mmol/L 10/13/16 05:56 BUN 8 mg/dL (9-20) L 10/13/16 05:56 Creatinine 0.9 mg/dL (0.8-1.5) 10/13/16 05:56 Estimated GFR > 60 ml/min 10/13/16 05:56 BUN/Creatinine Ratio 8.88 % 10/13/16 05:56 Glucose 90 mg/dL (75-100) 10/13/16 05:56 Lactic Acid 1.10 mmol/L (0.7-2.0) 10/08/16 06:19 Calcium 8.1 mg/dL (8.4-10.2) L 10/13/16 05:56 Iron 16 ug/dL (49-181) L 10/08/16 21:29 TIBC 89 mcg/dL (250-450) L 10/08/16 21:29 Ferritin 1101.0 ng/mL (13.0-400.0) H 10/08/16 21:31 Total Bilirubin 1.70 mg/dL (0.1-1.2) H 10/07/16 17:20 AST 57 units/L (5-40) H 10/07/16 17:20 ALT 42 units/L (7-56) 10/07/16 17:20 Alkaline Phosphatase 269 units/L (35-129) H 10/07/16 17:20 Lactate Dehydrogenase 157 units/L (91-180) 10/08/16 21:29 Total Protein 8.4 g/dL (6.3-8.2) H 10/07/16 17:20 Albumin 2.7 g/dL (3.9-5) L 10/07/16 17:20 Albumin/Globulin Ratio 0.5 % 10/07/16 17:20 Oeft-2-Cvjztjsusxnrl 4.38 mg/L (<=2.51) H 10/08/16 21:20 Lipase 17 units/L (13-60) 10/07/16 22:00 TSH 3.000 mlU/mL (0.270-4.200) 10/07/16 17:20 Free T4 0.89 ng/dL (0.76-1.46) 10/07/16 17:20 Urine Color Yellow (Yellow) 10/07/16 Unknown Urine Turbidity Slightly-cloudy (Clear) 10/07/16 Unknown Urine pH 5.0 (5.0-7.0) 10/07/16 Unknown Ur Specific Angela 1.034 (1.003-1.030) H 10/07/16 Unknown Urine Protein 30 mg/dl mg/dL (Negative) 10/07/16 Unknown Urine Glucose (UA) Neg mg/dL (Negative) 10/07/16 Unknown Urine Ketones Neg mg/dL (Negative) 10/07/16 Unknown Urine Blood Mod (Negative) 10/07/16 Unknown Urine Nitrite Neg (Negative) 10/07/16 Unknown Urine Bilirubin Neg (Negative) 10/07/16 Unknown Urine Urobilinogen 4.0 mg/dL (<2.0) 10/07/16 Unknown Ur Leukocyte Esterase Lg (Negative) 10/07/16 Unknown Urine WBC (Auto) 78.0 /HPF (0.0-6.0) H 10/07/16 Unknown Urine RBC (Auto) 10.0 /HPF (0.0-6.0) 10/07/16 Unknown U Epithel Cells (Auto) 3.0 /HPF (0-13.0) 10/07/16 Unknown Urine Bacteria (Auto) 1+ /HPF (Negative) 10/07/16 Unknown Hyaline Casts 11 /LPF 10/07/16 Unknown Urine Mucus 1+ /HPF 10/07/16 Unknown Hep Bs Antigen Non-reactive (Negative) 10/11/16 16:49 Hepatitis C Antibody Non-reactive (NonReactive) 10/11/16 16:42 HIV 1&2 Antibody Rapid Non react (Non React) 10/11/16 16:50 HIV P24 Antigen Non react (Non React) 10/11/16 16:50 Blood Type O POSITIVE 10/08/16 00:30 Antibody Screen TNR 10/08/16 00:30 DANGELO Antibody Screen Negative 10/08/16 00:30 Crossmatch See Detail 10/08/16 00:30
[2016-10-13] MEDS: NORVASC PO SCH (11:51)
--- NOTE | 2016-10-13 12:55 | Event Note ---
Date: 10/13/[address] scan. No residual collection. Will plan on drain removal early given possibility of underlying malignancy. Will plan on drain removal tomorrow.
--- NOTE | 2016-10-13 13:04 | Progress Note ---
Assessment and Plan Pt status quo. no specific complaints. angella diet Abd soft, very low h/h consider prbc tranfusion? awaiting cysto to r/o possible primary tumor Selected Entries 10/13/16 10/13/16 08:10 12:30 Temperature 100.7 F H Pulse Rate 77 Respiratory 20 Rate Blood Pressure 155/90 Laboratory Tests 10/12/16 10/13/16 05:05 05:56 WBC 14.9 H Hgb 8.3 L 8.1 L Hct 24.8 L 24.5 L Objective Vital Signs - 12hr 10/13/16 10/13/16 10/13/16 08:10 11:51 12:30 Temperature 100.7 F H 99.9 F H Pulse Rate 72 77 77 Respiratory 20 20 Rate Blood Pressure 148/91 155/70 155/90 O2 Sat by Pulse 97 Oximetry - Labs 10/13/16 05:56 10/13/16 05:56 Diabetes panel 10/13/16 Range/Units 05:56 Sodium 142 (137-145) mmol/L Potassium 3.7 (3.6-5.0) mmol/L Chloride 107.7 H (98-107) mmol/L Carbon Dioxide 24 (22-30) mmol/L BUN 8 L (9-20) mg/dL Creatinine 0.9 (0.8-1.5) mg/dL Glucose 90 (75-100) mg/dL Calcium 8.1 L (8.4-10.2) mg/dL Calcium panel 10/13/16 Range/Units 05:56 Calcium 8.1 L (8.4-10.2) mg/dL Pituitary panel 10/13/16 Range/Units 05:56 Sodium 142 (137-145) mmol/L Potassium 3.7 (3.6-5.0) mmol/L Chloride 107.7 H (98-107) mmol/L Carbon Dioxide 24 (22-30) mmol/L BUN 8 L (9-20) mg/dL Creatinine 0.9 (0.8-1.5) mg/dL Glucose 90 (75-100) mg/dL Calcium 8.1 L (8.4-10.2) mg/dL Adrenal panel 10/13/16 Range/Units 05:56 Sodium 142 (137-145) mmol/L Potassium 3.7 (3.6-5.0) mmol/L Chloride 107.7 H (98-107) mmol/L Carbon Dioxide 24 (22-30) mmol/L BUN 8 L (9-20) mg/dL Creatinine 0.9 (0.8-1.5) mg/dL Glucose 90 (75-100) mg/dL Calcium 8.1 L (8.4-10.2) mg/dL
[2016-10-13] MEDS: HEPARIN/ 0.45% NACL-25,000 UNIT/500 ML 25,000 UNIT/500 ML BAG IV SCH (14:50)
[2016-10-13] MEDS: NACL 0.9% 1000 ML 1,000 ML IV SCH (20:11)
--- NOTE | 2016-10-13 23:58 | Consultation ---
History of Present Illness - Reason for Consult Consult date: 10/13/16 - History of Present Illness Patient seen, resting in bed, Past History Past Medical History: other (benign prostate hypertrophy) Past Surgical History: No surgical history Social history: single. denies: smoking, alcohol abuse, prescription drug abuse Family history: hypertension. denies: cancer Medications and Allergies Allergies Allergy/AdvReac Type Severity Reaction Status Date / Time No Known Allergies Allergy Verified 10/07/16 20:36 Home Medications Medication Instructions Recorded Confirmed Last Taken Type No Known Home Medications [No 10/09/16 10/09/16 Unknown History Reported Home Medications] Active Meds: Active Medications Acetaminophen (Tylenol) 650 mg PO Q4H PRN PRN Reason: Pain MILD(1-3)/Fever >100.5/THOMAS Last Admin: 10/10/16 03:12 Dose: 650 mg Albuterol (Proventil) 2.5 mg IH Q4HRT PRN PRN Reason: Shortness Of Breath Amlodipine Besylate (Norvasc) 5 mg PO QDAY JÚNIOR Last Admin: 10/13/16 11:51 Dose: 5 mg Piperacillin Sod/Tazobactam Sod (Zosyn/Ns 4.5gm/100ml) 4.5 gm in 100 mls @ 200 mls/hr IV Q8HR JÚNIOR PRN Reason: Protocol Last Admin: 10/13/16 22:19 Dose: 200 mls/hr Sodium Chloride (Nacl 0.9% 1000 Ml) 1,000 mls @ 50 mls/hr IV DIRECT JÚNIOR Last Admin: 10/13/16 20:11 Dose: 50 mls/hr Heparin Sodium/Sodium Chloride (Heparin/ 0.45% Nacl-25,000 Unit/500 Ml) 25,000 unit in 500 mls @ 21 mls/hr IV TITR JÚNIOR; 1,050 UNITS/HR PRN Reason: Protocol Last Titration: 10/13/16 17:10 Dose: 1,800 units/hr, 36 mls/hr Loperamide HCl (Imodium) 2 mg PO Q2H PRN PRN Reason: Diarrhea Last Admin: 10/13/16 19:09 Dose: 2 mg Morphine Sulfate (Morphine) 2 mg IV Q4H PRN PRN Reason: Pain, Moderate (4-6) Last Admin: 10/09/16 13:08 Dose: 2 mg Ondansetron HCl (Zofran) 4 mg IV Q8H PRN PRN Reason: N/V unrelieved by Reglan Exam - Constitutional Vitals: Temp Pulse Resp BP Pulse Ox 99.7 F H 68 18 154/85 98 10/13/16 21:00 10/13/16 21:00 10/13/16 21:00 10/13/16 21:00 10/13/16 21:00 Results - Labs CBC & Chem 7: 10/13/16 05:56 10/13/16 05:56 Labs: Abnormal lab results 10/13/16 10/13/16 10/13/16 Range/Units 05:56 05:56 15:49 WBC 14.9 H (4.5-11.0) K/mm3 RBC 3.15 L (3.65-5.03) M/mm3 Hgb 8.1 L (11.8-15.2) gm/dl Hct 24.5 L (35.5-45.6) % MCV 78 L (84-94) fl MCH 26 L (28-32) pg RDW 16.4 H (13.2-15.2) % Seg Neuts % (Manual) 84.0 H (40.0-70.0) % Lymphocytes % (Manual) 7.0 L (13.4-35.0) % Seg Neutrophils # Man 12.5 H (1.8-7.7) K/mm3 Lymphocytes # (Manual) 1.0 L (1.2-5.4) K/mm3 Heparin Anti-Xa Level 0.15 L (0.3-0.7) U.I./ml Chloride 107.7 H (98-107) mmol/L BUN 8 L (9-20) mg/dL Calcium 8.1 L (8.4-10.2) mg/dL Assessment and Plan - Patient Problems (1) Abdominal pain, acute, bilateral lower quadrant Current Visit: Yes Status: Acute (2) Anemia Current Visit: Yes Status: Acute Qualifiers: Anemia type: iron deficiency Iron deficiency anemia type: chronic blood loss Vitamin B12 deficiency anemia type: V Folate deficiency anemia type: F Bone marrow failure anemia type: B Hemolytic anemia type: H Other causes of anemia: O Chronic kidney disease stage: C Qualified Code(s): D50.0 - Iron deficiency anemia secondary to blood loss (chronic) (3) Mass of colon Current Visit: Yes Status: Acute
[2016-10-14 05:11] LABS: Anion Gap 17 mmol/L; Blood Urea Nitrogen 8 mg/dL (9-20); Carbon Dioxide 25 mmol/L (22-30); Chloride 100.7 mmol/L (98-107); Glucose 82 mg/dL (75-100); Potassium 3.4 mmol/L (3.6-5.0); Sodium 139 mmol/L (137-145)
[2016-10-14 05:17] LABS: Hematocrit 24.6 % (35.5-45.6); Hemoglobin 8.1 gm/dl (11.8-15.2); Mean Corpuscular HGB Conc 33 % (32-34); Mean Corpuscular Volume 79 fl (84-94); Platelet Count 384 K/mm3 (140-440); Red Blood Count 3.11 M/mm3 (3.65-5.03); Red Cell Distribution Width 16.6 % (13.2-15.2); White Blood Count 12.4 K/mm3 (4.5-11.0)
[2016-10-14 05:19] LABS: Mean Corpuscular Hemoglobin 26 pg (28-32)
[2016-10-14] MEDS: HEPARIN/ 0.45% NACL-25,000 UNIT/500 ML 25,000 UNIT/500 ML BAG IV SCH ×2 (06:11→18:54)
[2016-10-14] MEDS: ZOSYN/NS 4.5GM/100ML 4.5 GM/100 ML VIAL IV SCH ×3 (06:12→22:56)
--- NOTE | 2016-10-14 07:55 | Progress Note ---
Assessment and Plan Pt status quo. no compl. angella diet Abd soft surgically stable awaiting cysto awaiting path report from CT guided biopsy (Colonoscopy biopsies were neg -- normal mucosa) Selected Entries 10/13/16 21:00 Temperature 99.7 F H Pulse Rate 68 Respiratory 18 Rate Blood Pressure 154/85 Laboratory Tests 10/13/16 10/14/16 05:56 04:00 Hgb 8.1 L 8.1 L Hct 24.5 L 24.6 L Objective Vital Signs - 12hr 10/13/16 10/13/16 10/13/16 20:45 21:00 22:00 Temperature 99.7 F H Pulse Rate 68 Pulse Rate [ 74 Apical] Respiratory 18 Rate Respiratory 18 Rate [no pain] Blood Pressure 154/85 O2 Sat by Pulse 99 98 Oximetry - Labs 10/14/16 04:00 10/14/16 05:00 Diabetes panel 10/14/16 Range/Units 05:00 Sodium 139 (137-145) mmol/L Potassium 3.4 L (3.6-5.0) mmol/L Chloride 100.7 (98-107) mmol/L Carbon Dioxide 25 (22-30) mmol/L BUN 8 L (9-20) mg/dL Creatinine 0.8 (0.8-1.5) mg/dL Glucose 82 (75-100) mg/dL Calcium 8.0 L (8.4-10.2) mg/dL Calcium panel 10/14/16 Range/Units 05:00 Calcium 8.0 L (8.4-10.2) mg/dL Pituitary panel 10/14/16 Range/Units 05:00 Sodium 139 (137-145) mmol/L Potassium 3.4 L (3.6-5.0) mmol/L Chloride 100.7 (98-107) mmol/L Carbon Dioxide 25 (22-30) mmol/L BUN 8 L (9-20) mg/dL Creatinine 0.8 (0.8-1.5) mg/dL Glucose 82 (75-100) mg/dL Calcium 8.0 L (8.4-10.2) mg/dL Adrenal panel 10/14/16 Range/Units 05:00 Sodium 139 (137-145) mmol/L Potassium 3.4 L (3.6-5.0) mmol/L Chloride 100.7 (98-107) mmol/L Carbon Dioxide 25 (22-30) mmol/L BUN 8 L (9-20) mg/dL Creatinine 0.8 (0.8-1.5) mg/dL Glucose 82 (75-100) mg/dL Calcium 8.0 L (8.4-10.2) mg/dL
[2016-10-14] MEDS: KCL 10MEQ/100ML 10 MEQ/100 ML BAG IV SCH ×2 (09:16→12:18)
--- NOTE | 2016-10-14 09:45 | Progress Note ---
Assessment and Plan - Patient Problems (1) Abscess, bladder Current Visit: Yes Status: Acute Plan to address problem: 1. Question etiology, trauma vs. amoebic origin, etc. 2. Continue Zosyn despite monomicrobial findings on culture. 3. Await E. histolytica, etc. results. (2) Mass of colon Current Visit: Yes Status: Acute Plan to address problem: 1. Benign findings on path. Probable cystoscopy +/- biopsy. Subjective Date of service: 10/14/16 Principal diagnosis: Pelvic Abscess/ Mass; Venous Thromboses Interval history: Remains afebrile, stable. Drain removed this AM. Objective - Constitutional Vitals: Vital Signs Temp Pulse Resp BP Pulse Ox 99.7 F H 68 18 154/85 98 10/13/16 21:00 10/13/16 21:00 10/13/16 22:00 10/13/16 21:00 10/13/16 21:00 Temperature -Last 24 Hours Temperature 99.7 F Temperature 97.9 F Temperature 99.9 F General appearance: Present: no acute distress - EENT ENT: poor dentition, no thrush - Respiratory Respiratory effort: normal Respiratory: bilateral: CTA, negative: rhonchi - Cardiovascular Rhythm: regular Heart Sounds: Present: S1 & S2 Extremities: No edema - Gastrointestinal General gastrointestinal: Present: soft, non-tender, distended (mildly), other ( drain removed) - Integumentary Integumentary: clear, no jaundice - Psychiatric Psychiatric: appropriate mood/affect - Labs CBC & Chem 7: 10/14/16 04:00 10/14/16 05:00 Labs: Abnormal lab results 10/13/16 10/14/16 10/14/16 Range/Units 15:49 04:00 05:00 WBC 12.4 H (4.5-11.0) K/mm3 RBC 3.11 L (3.65-5.03) M/mm3 Hgb 8.1 L (11.8-15.2) gm/dl Hct 24.6 L (35.5-45.6) % MCV 79 L (84-94) fl MCH 26 L (28-32) pg RDW 16.6 H (13.2-15.2) % Heparin Anti-Xa Level 0.15 L (0.3-0.7) U.I./ml Potassium 3.4 L (3.6-5.0) mmol/L BUN 8 L (9-20) mg/dL Calcium 8.0 L (8.4-10.2) mg/dL Microbiology 10/08/16 15:52 Peripheral/Venous Blood Culture - Final NO GROWTH AFTER 5 DAYS 10/08/16 15:28 Peripheral/Venous Blood Culture - Final NO GROWTH AFTER 5 DAYS 10/10/16 15:00 Abdomen Surgical Culture - Final Beta Hemolytic Strep Group C 10/10/16 15:00 Abdomen Anaerobic Culture - Preliminary - Imaging and cardiology Other: report reviewed (Pathology - benign colonic mucosa with no significant histopathologic changes)
--- NOTE | 2016-10-14 10:17 | Operative Report ---
Operative Report Operative Report: EXAM: FLUOROSCOPIC GUIDED EVALUATION OF DRAINAGE CATHETER WITH CONTRAST INJECTION AND DRAINAGE CATHETER REMOVAL CLINICAL INDICATION: DECREASED DRAINAGE OUTPUT, CT WITH EVIDENCE OF NO RESIDUAL ABSCESS CAVITY DATE: 10/14/2016 PROCEDURE: Following an explanation of the risks, benefits and alternatives; written informed consent was obtained. The patient was brought to the angiographic suite and placed in supine position on the exam table. Initial fluoroscopic images demonstrated appropriate positioning of the patient's previously placed drainage catheter. The catheter was sterilely prepped. Contrast was injected through the indwelling catheter which demonstrated no residual abscess cavity. The catheter was cut to release the pigtail and removed intact. Post removal fluoroscopic images demonstrated no retained foreign bodies. A sterile dressing was then applied. The patient tolerated the procedure well. There were no immediate post procedure complications. Continuous cardio pulmonary monitoring was utilized. No sedation was given. IMPRESSION: 1) Fluoroscopic guided evaluation of indwelling drainage catheter with contrast injection demonstrating no residual abscess cavity. 2) Drainage catheter removal.
[2016-10-14] MEDS: NORVASC PO SCH (12:18)
[2016-10-14] MEDS: IMODIUM PO PRN (12:18)
[2016-10-14 12:26] LABS: Protein S, Free 119 % normal (57-171); Protein S, Total 115 % (70-140)
--- NOTE | 2016-10-14 15:22 | Progress Note ---
Assessment and Plan Assessment and plan: Intra-abdominal mass with abdominal pain: - Drainage of abscess was done by interventional radiologist and about 25 mL of purulent fluid was drained. Drain was left in but removed today - Patient is on IV antibiotic-Zosyn -ID physician following Portal vein thrombosis. Patient on heparin infusion Left external iliac vein thrombosis- heparin drip. Pelvic mass - Oncology, surgery & urology following - will have cystoscopy this week, or as an out patient as per urology Sepsis of intra-abdominal origin. continue Zosyn iv. 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 Hemoglobin 8.1 yesterday. May only transfuse if hemoglobin less than 7 or if there is active bleeding. DVT prophylaxis. On heparin. History Interval history: Still having fever,even this morning , Less abdominal pain, Surgical drain removed today Hospitalist Physical - Physical exam Narrative exam: Gen appearance :Not in acute distress, HEENT: Normocephalic, atraumatic Neck: Supple, no JVD Lungs: Clear to auscultation bilaterally, no crackles, or wheezes. Heart: S1 and S2 regular, no murmurs, no gallops, rub Abdomen : Soft, non-tender, non-distended, dressing over LLQat site of drain removal, normal bowel sounds Extremities :No edema, no clubbing or cyanosis Neuro: Awake, alert, oriented 3, normal speech, no focal neurological signs Psych: normal mood. - Constitutional Vitals: Temp Pulse Resp BP Pulse Ox 100.1 F H 67 20 150/93 97 10/14/16 08:30 10/14/16 12:18 10/14/16 08:30 10/14/16 12:18 10/14/16 08:30 General appearance: Present: no acute distress Results - Labs CBC & Chem 7: 10/14/16 04:00 10/14/16 05:00 Labs: Laboratory Last Values WBC 12.4 K/mm3 (4.5-11.0) H 10/14/16 04:00 RBC 3.11 M/mm3 (3.65-5.03) L 10/14/16 04:00 Hgb 8.1 gm/dl (11.8-15.2) L 10/14/16 04:00 Hct 24.6 % (35.5-45.6) L 10/14/16 04:00 MCV 79 fl (84-94) L 10/14/16 04:00 MCH 26 pg (28-32) L 10/14/16 04:00 MCHC 33 % (32-34) 10/14/16 04:00 RDW 16.6 % (13.2-15.2) H 10/14/16 04:00 Plt Count 384 K/mm3 (140-440) 10/14/16 04:00 Lymph % (Auto) 12.2 % (13.4-35.0) L 10/12/16 05:05 [place] % (Auto) 7.6 % (0.0-7.3) H 10/12/16 05:05 Eos % (Auto) 1.1 % (0.0-4.3) 10/12/16 05:05 Baso % (Auto) 0.5 % (0.0-1.8) 10/12/16 05:05 Lymph # 1.8 K/mm3 (1.2-5.4) 10/12/16 05:05 [place] # 1.1 K/mm3 (0.0-0.8) H 10/12/16 05:05 Eos # 0.2 K/mm3 (0.0-0.4) 10/12/16 05:05 Baso # 0.1 K/mm3 (0.0-0.1) 10/12/16 05:05 Add Manual Diff Complete 10/13/16 05:56 Total Counted 100 10/13/16 05:56 Seg Neutrophils % 78.6 % (40.0-70.0) H 10/12/16 05:05 Seg Neuts % (Manual) 84.0 % (40.0-70.0) H 10/13/16 05:56 Band Neutrophils % 3.0 % 10/13/16 05:56 Lymphocytes % (Manual) 7.0 % (13.4-35.0) L 10/13/16 05:56 Reactive Lymphs % (Man) 1.0 % 10/13/16 05:56 Monocytes % (Manual) 5.0 % (0.0-7.3) 10/13/16 05:56 Eosinophils % (Manual) 0 % (0.0-4.3) 10/13/16 05:56 Basophils % (Manual) 0 % (0.0-1.8) 10/13/16 05:56 Metamyelocytes % 0 % 10/13/16 05:56 Myelocytes % 0 % 10/13/16 05:56 Promyelocytes % 0 % 10/13/16 05:56 Blast Cells % 0 % 10/13/16 05:56 Nucleated RBC % Not Reportable 10/13/16 05:56 Seg Neutrophils # 11.5 K/mm3 (1.8-7.7) H 10/12/16 05:05 Seg Neutrophils # Man 12.5 K/mm3 (1.8-7.7) H 10/13/16 05:56 Band Neutrophils # 0.4 K/mm3 10/13/16 05:56 Lymphocytes # (Manual) 1.0 K/mm3 (1.2-5.4) L 10/13/16 05:56 Abs React Lymphs (Man) 0.1 K/mm3 10/13/16 05:56 Monocytes # (Manual) 0.7 K/mm3 (0.0-0.8) 10/13/16 05:56 Eosinophils # (Manual) 0.0 K/mm3 (0.0-0.4) 10/13/16 05:56 Basophils # (Manual) 0.0 K/mm3 (0.0-0.1) 10/13/16 05:56 Metamyelocytes # 0.0 K/mm3 10/13/16 05:56 Myelocytes # 0.0 K/mm3 10/13/16 05:56 Promyelocytes # 0.0 K/mm3 10/13/16 05:56 Blast Cells # 0.0 K/mm3 10/13/16 05:56 WBC Morphology Not Reportable 10/13/16 05:56 Hypersegmented Neuts Not Reportable 10/13/16 05:56 Hyposegmented Neuts Not Reportable 10/13/16 05:56 Hypogranular Neuts Not Reportable 10/13/16 05:56 Smudge Cells Not Reportable 10/13/16 05:56 Toxic Granulation Not Reportable 10/13/16 05:56 Toxic Vacuolation Not Reportable 10/13/16 05:56 Dohle Bodies Not Reportable 10/13/16 05:56 Pelger-Huet Anomaly Not Reportable 10/13/16 05:56 Gabriela Rods Not Reportable 10/13/16 05:56 Platelet Estimate Cons 10/13/16 05:56 Clumped Platelets Not Reportable 10/13/16 05:56 Plt Clumps, EDTA Not Reportable 10/13/16 05:56 Large Platelets 1+ 10/13/16 05:56 Giant Platelets Not Reportable 10/13/16 05:56 Platelet Satelliting Not Reportable 10/13/16 05:56 Plt Morphology Comment Not Reportable 10/13/16 05:56 RBC Morphology Not Reportable 10/13/16 05:56 Dimorphic RBCs Not Reportable 10/13/16 05:56 Polychromasia 2+ 10/13/16 05:56 Hypochromasia Not Reportable 10/13/16 05:56 Poikilocytosis Not Reportable 10/13/16 05:56 Anisocytosis 1+ 10/13/16 05:56 Microcytosis Not Reportable 10/13/16 05:56 Macrocytosis Not Reportable 10/13/16 05:56 Spherocytes Not Reportable 10/13/16 05:56 Pappenheimer Bodies Not Reportable 10/13/16 05:56 Sickle Cells Not Reportable 10/13/16 05:56 Target Cells Few 10/13/16 05:56 Tear Drop Cells Not Reportable 10/13/16 05:56 Ovalocytes Not Reportable 10/13/16 05:56 Helmet Cells Not Reportable 10/13/16 05:56 [place] Bodies Not Reportable 10/13/16 05:56 Heidrick Rings Not Reportable 10/13/16 05:56 Ernest Cells Not Reportable 10/13/16 05:56 Bite Cells Not Reportable 10/13/16 05:56 Crenated Cell Not Reportable 10/13/16 05:56 Elliptocytes Not Reportable 10/13/16 05:56 Acanthocytes (Spur) Not Reportable 10/13/16 05:56 Rouleaux Not Reportable 10/13/16 05:56 Hemoglobin C Crystals Not Reportable 10/13/16 05:56 Schistocytes Not Reportable 10/13/16 05:56 Malaria parasites Not Reportable 10/13/16 05:56 ESR 73 mm/Hr (0-20) 10/11/16 10:56 Hollis Bodies Not Reportable 10/13/16 05:56 Hem Pathologist Commnt No 10/13/16 05:56 PT 16.1 Sec. (12.2-14.9) H 10/10/16 16:38 INR 1.23 (0.87-1.13) H 10/10/16 16:38 APTT 26.4 Sec. (24.2-36.6) 10/10/16 16:38 APC Resistance 4.6 ratio (>=2.1) 10/11/16 10:56 Free Protein S 119 % normal (57-171) 10/11/16 10:56 Total Protein S 115 % (70-140) 10/11/16 10:56 Heparin Anti-Xa Level 0.48 U.I./ml (0.3-0.7) 10/13/16 23:15 Sodium 139 mmol/L (137-145) 10/14/16 05:00 Potassium 3.4 mmol/L (3.6-5.0) L 10/14/16 05:00 Chloride 100.7 mmol/L (98-107) 10/14/16 05:00 Carbon Dioxide 25 mmol/L (22-30) 10/14/16 05:00 Anion Gap 17 mmol/L 10/14/16 05:00 BUN 8 mg/dL (9-20) L 10/14/16 05:00 Creatinine 0.8 mg/dL (0.8-1.5) 10/14/16 05:00 Estimated GFR > 60 ml/min 10/14/16 05:00 BUN/Creatinine Ratio 10.00 % 10/14/16 05:00 Glucose 82 mg/dL (75-100) 10/14/16 05:00 Lactic Acid 1.10 mmol/L (0.7-2.0) 10/08/16 06:19 Calcium 8.0 mg/dL (8.4-10.2) L 10/14/16 05:00 Iron 16 ug/dL (49-181) L 10/08/16 21:29 TIBC 89 mcg/dL (250-450) L 10/08/16 21:29 Ferritin 1101.0 ng/mL (13.0-400.0) H 10/08/16 21:31 Total Bilirubin 1.70 mg/dL (0.1-1.2) H 10/07/16 17:20 AST 57 units/L (5-40) H 10/07/16 17:20 ALT 42 units/L (7-56) 10/07/16 17:20 Alkaline Phosphatase 269 units/L (35-129) H 10/07/16 17:20 Lactate Dehydrogenase 157 units/L (91-180) 10/08/16 21:29 Total Protein 8.4 g/dL (6.3-8.2) H 10/07/16 17:20 Albumin 2.7 g/dL (3.9-5) L 10/07/16 17:20 Albumin/Globulin Ratio 0.5 % 10/07/16 17:20 Yioj-5-Sczbbirzhnjax 4.38 mg/L (<=2.51) H 10/08/16 21:20 Lipase 17 units/L (13-60) 10/07/16 22:00 TSH 3.000 mlU/mL (0.270-4.200) 10/07/16 17:20 Free T4 0.89 ng/dL (0.76-1.46) 10/07/16 17:20 Urine Color Yellow (Yellow) 10/07/16 Unknown Urine Turbidity Slightly-cloudy (Clear) 10/07/16 Unknown Urine pH 5.0 (5.0-7.0) 10/07/16 Unknown Ur Specific [place] 1.034 (1.003-1.030) H 10/07/16 Unknown Urine Protein 30 mg/dl mg/dL (Negative) 10/07/16 Unknown Urine Glucose (UA) Neg mg/dL (Negative) 10/07/16 Unknown Urine Ketones Neg mg/dL (Negative) 10/07/16 Unknown Urine Blood Mod (Negative) 10/07/16 Unknown Urine Nitrite Neg (Negative) 10/07/16 Unknown Urine Bilirubin Neg (Negative) 10/07/16 Unknown Urine Urobilinogen 4.0 mg/dL (<2.0) 10/07/16 Unknown Ur Leukocyte Esterase Lg (Negative) 10/07/16 Unknown Urine WBC (Auto) 78.0 /HPF (0.0-6.0) H 10/07/16 Unknown Urine RBC (Auto) 10.0 /HPF (0.0-6.0) 10/07/16 Unknown U Epithel Cells (Auto) 3.0 /HPF (0-13.0) 10/07/16 Unknown Urine Bacteria (Auto) 1+ /HPF (Negative) 10/07/16 Unknown Hyaline Casts 11 /LPF 10/07/16 Unknown Urine Mucus 1+ /HPF 10/07/16 Unknown Hep Bs Antigen Non-reactive (Negative) 10/11/16 16:49 Hepatitis C Antibody Non-reactive (NonReactive) 10/11/16 16:42 HIV 1&2 Antibody Rapid Non react (Non React) 10/11/16 16:50 HIV P24 Antigen Non react (Non React) 10/11/16 16:50 Blood Type O POSITIVE 10/08/16 00:30 Antibody Screen TNR 10/08/16 00:30 DANGELO Antibody Screen Negative 10/08/16 00:30 Crossmatch See Detail 10/08/16 00:30
--- NOTE | 2016-10-14 17:04 | Anesthesia Consultation ---
Anesthesia Consult and Med Hx Date of service: 10/15/16 - Airway Anesthetic Teeth Evaluation: Poor ROM Head & Neck: Adequate Mental/Hyoid Distance: Adequate Mallampati Class: Class I Intubation Access Assessment: Good - Pre-Operative Health Status ASA Pre-Surgery Classification: ASA2 Proposed Anesthetic Plan: General - Pulmonary Hx Smoking: Yes (x 40 years, quit 3 weeks ago. ) Hx Asthma: No COPD: No Hx Pneumonia: No - Endocrine Hx End Stage Renal Disease: No - Hematic Hx Anemia: Yes - Additional Comments Anesthesia Medical History Comments: Denies previous anesthesia complications. Multiple loose teeth, lower anterior.
[2016-10-14] MEDS: NACL 0.9% 1000 ML 1,000 ML IV SCH (18:58)
--- NOTE | 2016-10-14 20:40 | Consultation ---
History of Present Illness - Reason for Consult Consult date: 10/14/16 - History of Present Illness patient seen/examined, record reviewed, case d/w patient. Scheduled for urology procedure tomorrow?. Past History Past Medical History: other (benign prostate hypertrophy) Past Surgical History: No surgical history Social history: single. denies: smoking, alcohol abuse, prescription drug abuse Family history: hypertension. denies: cancer Medications and Allergies Allergies Allergy/AdvReac Type Severity Reaction Status Date / Time No Known Allergies Allergy Verified 10/07/16 20:36 Home Medications Medication Instructions Recorded Confirmed Last Taken Type No Known Home Medications [No 10/09/16 10/09/16 Unknown History Reported Home Medications] Active Meds: Active Medications Acetaminophen (Tylenol) 650 mg PO Q4H PRN PRN Reason: Pain MILD(1-3)/Fever >100.5/THOMAS Last Admin: 10/10/16 03:12 Dose: 650 mg Albuterol (Proventil) 2.5 mg IH Q4HRT PRN PRN Reason: Shortness Of Breath Amlodipine Besylate (Norvasc) 5 mg PO QDAY JÚNIOR Last Admin: 10/14/16 12:18 Dose: 5 mg Piperacillin Sod/Tazobactam Sod (Zosyn/Ns 4.5gm/100ml) 4.5 gm in 100 mls @ 200 mls/hr IV Q8HR JÚNIOR PRN Reason: Protocol Last Admin: 10/14/16 16:21 Dose: 200 mls/hr Sodium Chloride (Nacl 0.9% 1000 Ml) 1,000 mls @ 50 mls/hr IV DIRECT JÚNIOR Last Admin: 10/14/16 18:58 Dose: 50 mls/hr Heparin Sodium/Sodium Chloride (Heparin/ 0.45% Nacl-25,000 Unit/500 Ml) 25,000 unit in 500 mls @ 21 mls/hr IV TITR JÚNIOR; 1,050 UNITS/HR PRN Reason: Protocol Last Admin: 10/14/16 18:54 Dose: 1,800 units/hr, 36 mls/hr Loperamide HCl (Imodium) 2 mg PO Q2H PRN PRN Reason: Diarrhea Last Admin: 10/14/16 12:18 Dose: 2 mg Morphine Sulfate (Morphine) 2 mg IV Q4H PRN PRN Reason: Pain, Moderate (4-6) Last Admin: 10/09/16 13:08 Dose: 2 mg Ondansetron HCl (Zofran) 4 mg IV Q8H PRN PRN Reason: N/V unrelieved by Reglan Exam - Constitutional Vitals: Temp Pulse Resp BP Pulse Ox 98.0 F 76 20 136/87 97 10/14/16 16:25 10/14/16 16:25 10/14/16 16:25 10/14/16 16:25 10/14/16 16:25 General appearance: Present: no acute distress, well-nourished - EENT Eyes: Present: PERRL ENT: hearing intact, clear oral mucosa - Neck Neck: Present: supple, normal ROM - Respiratory Respiratory effort: normal Respiratory: bilateral: CTA - Cardiovascular Heart Sounds: Present: S1 & S2. Absent: rub, click - Extremities Extremities: pulses symmetrical, No edema Peripheral Pulses: within normal limits - Abdominal General gastrointestinal: Present: soft, non-tender, non-distended, normal bowel sounds Male genitourinary: Present: deferred - Rectal Rectal Exam: deferred - Integumentary Integumentary: Present: clear, warm, dry - Musculoskeletal Musculoskeletal: gait normal, strength equal bilaterally - Psychiatric Psychiatric: appropriate mood/affect, intact judgment & insight - Neurologic Neurologic: CNII-XII intact, moves all extremities Results - Labs CBC & Chem 7: 10/14/16 04:00 10/14/16 05:00 Labs: Abnormal lab results 10/14/16 10/14/16 Range/Units 04:00 05:00 WBC 12.4 H (4.5-11.0) K/mm3 RBC 3.11 L (3.65-5.03) M/mm3 Hgb 8.1 L (11.8-15.2) gm/dl Hct 24.6 L (35.5-45.6) % MCV 79 L (84-94) fl MCH 26 L (28-32) pg RDW 16.6 H (13.2-15.2) % Potassium 3.4 L (3.6-5.0) mmol/L BUN 8 L (9-20) mg/dL Calcium 8.0 L (8.4-10.2) mg/dL Assessment and Plan - Patient Problems (1) Abdominal pain, acute, bilateral lower quadrant Current Visit: Yes Status: Acute Plan to address problem: This is due to the mass effect. improved as per patient. Patient now have portal vein thrombosis. and will continue anticoagulation. As above , until near surgery time, ie 6hrs prior. (2) Anemia Current Visit: Yes Status: Acute Qualifiers: Anemia type: iron deficiency Iron deficiency anemia type: chronic blood loss Vitamin B12 deficiency anemia type: V Folate deficiency anemia type: F Bone marrow failure anemia type: B Hemolytic anemia type: H Other causes of anemia: O Chronic kidney disease stage: C Qualified Code(s): D50.0 - Iron deficiency anemia secondary to blood loss (chronic) Plan to address problem: Replacement when indicated. better post transfusion. (3) Mass of colon Current Visit: Yes Status: Acute Plan to address problem: await colonoscopy with tissue bx, then path report. await bladder procedure.
[2016-10-15] MEDS: ZOSYN/NS 4.5GM/100ML 4.5 GM/100 ML VIAL IV SCH ×2 (05:38→15:56)
[2016-10-15 06:14] LABS: Hematocrit 24.3 % (35.5-45.6); Mean Corpuscular HGB Conc 33 % (32-34); Mean Corpuscular Hemoglobin 26 pg (28-32); Mean Corpuscular Volume 79 fl (84-94); Platelet Count 365 K/mm3 (140-440); Red Blood Count 3.07 M/mm3 (3.65-5.03); Red Cell Distribution Width 16.4 % (13.2-15.2); White Blood Count 12.6 K/mm3 (4.5-11.0)
[2016-10-15 06:35] LABS: Anion Gap 20 mmol/L; BUN/Creatinine Ratio 12.85; Blood Urea Nitrogen 9 mg/dL (9-20); Calcium 8.3 mg/dL (8.4-10.2); Carbon Dioxide 23 mmol/L (22-30); Glucose 82 mg/dL (75-100); Potassium 4.2 mmol/L (3.6-5.0); Sodium 138 mmol/L (137-145)
--- NOTE | 2016-10-15 08:18 | Progress Note ---
Assessment and Plan Pt status quo. no compl for cysto today? await findings Objective Vital Signs - 12hr 10/14/16 10/15/16 10/15/16 22:00 00:00 06:47 Temperature 100.4 F H Pulse Rate 73 74 Respiratory 18 Rate Respiratory 19 Rate [no pain] Blood Pressure 143/87 O2 Sat by Pulse 95 Oximetry - Labs 10/15/16 05:52 10/15/16 05:52 Diabetes panel 10/15/16 Range/Units 05:52 Sodium 138 (137-145) mmol/L Potassium 4.2 D (3.6-5.0) mmol/L Chloride 99.0 (98-107) mmol/L Carbon Dioxide 23 (22-30) mmol/L BUN 9 (9-20) mg/dL Creatinine 0.7 L (0.8-1.5) mg/dL Glucose 82 (75-100) mg/dL Calcium 8.3 L (8.4-10.2) mg/dL Calcium panel 10/15/16 Range/Units 05:52 Calcium 8.3 L (8.4-10.2) mg/dL Pituitary panel 10/15/16 Range/Units 05:52 Sodium 138 (137-145) mmol/L Potassium 4.2 D (3.6-5.0) mmol/L Chloride 99.0 (98-107) mmol/L Carbon Dioxide 23 (22-30) mmol/L BUN 9 (9-20) mg/dL Creatinine 0.7 L (0.8-1.5) mg/dL Glucose 82 (75-100) mg/dL Calcium 8.3 L (8.4-10.2) mg/dL Adrenal panel 10/15/16 Range/Units 05:52 Sodium 138 (137-145) mmol/L Potassium 4.2 D (3.6-5.0) mmol/L Chloride 99.0 (98-107) mmol/L Carbon Dioxide 23 (22-30) mmol/L BUN 9 (9-20) mg/dL Creatinine 0.7 L (0.8-1.5) mg/dL Glucose 82 (75-100) mg/dL Calcium 8.3 L (8.4-10.2) mg/dL
[2016-10-15] MEDS: HEPARIN/ 0.45% NACL-25,000 UNIT/500 ML 25,000 UNIT/500 ML BAG IV SCH (10:16)
[2016-10-15] MEDS: NORVASC PO SCH (10:19)
[2016-10-15] MEDS ORDERED: DIPRIVAN 10 MG/ML IV ONE (10:48)
[2016-10-15] MEDS ORDERED: SUBLIMAZE ONE (10:50)
[2016-10-15] MEDS ORDERED: NACL 0.9% 1000 ML 1,000 ML ONE (11:13)
--- NOTE | 2016-10-15 11:52 | Anesthesia Day of Surgery ---
Anesthesia Day of Surgery - Day of Surgery Patient Examined: Yes Patient H&P Reviewed: Yes Patient is NPO: Yes
[2016-10-15] MEDS: NACL 0.9% 1000 ML 1,000 ML IV SCH ×2 (11:56→21:46)
[2016-10-15] MEDS ORDERED: VERSED ONE (11:58)
--- NOTE | 2016-10-15 12:07 | Progress Note ---
Assessment and Plan Intra-abdominal mass with abdominal pain: - Drainage of abscess was done by interventional radiologist and about 25 mL of purulent fluid was drained. Drain was left in but removed on 10/14/16 - Patient was on IV antibiotic-Zosyn, but changed to recephin today -ID physician following Portal vein thrombosis. 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 Pelvic mass, suspected on admission - likely from bladder abscess - Oncology, surgery & urology following - cystoscopy showed bladder stone, no mass Sepsis of intra-abdominal origin. - continue iv abx. 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 Hemoglobin 8.0 today. May only transfuse if hemoglobin less than 7 or if there is active bleeding. DVT prophylaxis. On heparin. Subjective Date of service: 10/15/16 Principal diagnosis: Pelvic Abscess/ Mass; Venous Thromboses Interval history: Pt seen and examined s/p cystoscopy today showed bladder stone tolerated procedure well Objective - Exam Narrative Exam: Gen appearance: Not in acute distress, HEENT: Normocephalic, atraumatic Neck: Supple, no JVD Lungs: Clear to auscultation bilaterally, no crackles, or wheezes. Heart: S1 and S2 regular, no murmurs, no gallops, rub Abdomen : Soft, non-tender, non-distended, dressing over LLQ, at site of drain removal, normal bowel sounds Extremities :No edema, no clubbing or cyanosis Neuro: Awake, alert, oriented 3, normal speech, no focal neurological signs Psych: normal mood. - Constitutional Vitals: Vital Signs - 12hr 10/15/16 10/15/16 10/15/16 06:47 08:15 11:41 Temperature 97.9 F 98.4 F Pulse Rate 74 60 73 Respiratory 20 16 Rate Blood Pressure 150/90 140/83 O2 Sat by Pulse 100 97 Oximetry - Labs CBC & Chem 7: 10/15/16 05:52 10/15/16 05:52 Labs: Abnormal lab results 10/11/16 10/15/16 10/15/16 Range/Units 10:56 05:52 05:52 WBC 12.6 H (4.5-11.0) K/mm3 RBC 3.07 L (3.65-5.03) M/mm3 Hgb 8.0 L (11.8-15.2) gm/dl Hct 24.3 L (35.5-45.6) % MCV 79 L (84-94) fl MCH 26 L (28-32) pg RDW 16.4 H (13.2-15.2) % Antithrombin III Ag 67 L (80-120) % Creatinine 0.7 L (0.8-1.5) mg/dL Calcium 8.3 L (8.4-10.2) mg/dL
[2016-10-15] MEDS ORDERED: XYLOCAINE MPF 2% ONE (12:30)
[2016-10-15] MEDS ORDERED: WATER FOR IRRIG STERILE IR ONE ×2 (12:34)
[2016-10-15] MEDS ORDERED: TORADOL ONE (12:45)
[2016-10-15] MEDS ORDERED: ZOFRAN ONE (12:45)
--- NOTE | 2016-10-15 12:52 | Post Operative Note ---
Pre-op diagnosis: pelvic pain, bladder stone, hematuria Post-op diagnosis: same Procedure: cysto , rpg, Anesthesia: GETA Surgeon: SEJAL DELGADILLO Estimated blood loss: none Condition: stable Disposition: PACU (4cm bladder stone, pt will need open procedure & be off blood thinners)
--- NOTE | 2016-10-15 13:48 | Operative Report ---
PREOPERATIVE DIAGNOSES: Hematuria, pelvic mass, pelvic abscess, and bladder stone. POSTOPERATIVE DIAGNOSES: Hematuria, pelvic mass, pelvic abscess, and 4 cm bladder stone. PROCEDURE: Cystoscopy, bilateral retrograde pyelograms. SURGEON: Rico Riggs MD ANESTHESIA: General. ESTIMATED BLOOD LOSS: Minimal. FLUIDS: Crystalloid. COMPLICATIONS: No complications. INDICATIONS: This 61-year-old gentleman presented to the office with pelvic pain. CT of abdomen and pelvis suggested pelvic abscess and bladder mass. He was found to have portal vein thrombosis, left iliac vein thrombosis and placed on heparin. It was unclear his bladder pathology and he presents now for endoscopic evaluation. His hemoglobin is 8.1. Heparin was not turned off prior to surgery. DESCRIPTION OF PROCEDURE: The patient was taken to the operative suite, placed in a supine position. After adequate general anesthesia, placed in a dorsal lithotomy position, prepped and draped in a sterile fashion. Pancystourethroscopy was performed with 22 Yi Storz cystoscope. No urethral abnormalities. His prostate displayed [id number] trilobar obstruction. His bladder, obvious yellow 4 cm stone. No tumors were noted. Bilateral retrograde pyelograms were obtained with an 8 Yi [place] catheter and 8 mL of contrast. No filling defects. He does have some left greater than right hydronephrosis, which appears to be due to the edema from the stone. His creatinine was 0.7. His bladder was drained. He was extubated. Rectal exam was benign. He was taken to recovery room in stable condition. The patient will eventually need cysto and open bladder stone removal and need to be off heparin. We can do that electively once better disposition of his thrombosis has been achieved. JOB# [id number] [facility]
--- NOTE | 2016-10-15 14:00 | Fluoroscopy Report ---
Retropyelogram. History: Gross hematuria. Findings: Gold Cutter film reveals a large ovoid shaped stone within the urinary bladder. The right pelvicalyceal system and ureter appear normal. There is moderate dilatation of the proximal two thirds of the left ureter with partial opacification of a dilated left collecting system. No ureteral filling defects are seen. Impression: Probable stricture of the distal ureter. 2. Large bladder stone.
--- NOTE | 2016-10-15 14:15 | Post Anesthesia Evaluation ---
- Post Anesthesia Evaluation Patient Participated: Yes Airway Patent: Yes Stable Respiratory Function: Yes Nausea/Vomiting: No Temp > 96.8F: Yes Pain Manageable: Yes Adequeate Hydration: Yes Anesthesia Complications: No Block Receding Appropriately: Not Applicable Patient on Ventilator: No
--- NOTE | 2016-10-15 17:27 | Progress Note ---
Assessment and Plan - Patient Problems (1) Abscess, bladder Current Visit: Yes Status: Acute Plan to address problem: 1. Likely from nephrolithiasis. 2. Will narrow antibiotic coverage to Rocephin. (2) Mass of colon Current Visit: Yes Status: Acute Plan to address problem: Per above. Likely from ? stone erosion. Await further study results. Subjective Date of service: 10/15/16 Principal diagnosis: Pelvic Abscess/ Mass; Venous Thromboses Interval history: Urologic procedures performed today showing nephrolithiasis and resulting edema. Low-grade fever earlier. Objective - Constitutional Vitals: Vital Signs Temp Pulse Resp BP Pulse Ox 98 F 73 18 138/77 96 10/15/16 13:40 10/15/16 13:40 10/15/16 13:40 10/15/16 13:40 10/15/16 13:40 Temperature -Last 24 Hours Temperature 98 F Temperature 98 F Temperature 98.4 F Temperature 98.4 F Temperature 97.9 F Temperature 100.4 F Temperature 98.1 F General appearance: Present: no acute distress - EENT Eyes: no scleral icterus - Respiratory Respiratory effort: normal Respiratory: bilateral: CTA - Cardiovascular Rhythm: regular Heart Sounds: Present: S1 & S2 Extremities: No edema - Gastrointestinal General gastrointestinal: Present: soft, distended (decreased, drain removed) - Integumentary Integumentary: no rash - Psychiatric Psychiatric: appropriate mood/affect - Labs CBC & Chem 7: 10/15/16 05:52 10/15/16 05:52 Labs: Abnormal lab results 10/11/16 10/15/16 10/15/16 Range/Units 10:56 05:52 05:52 WBC 12.6 H (4.5-11.0) K/mm3 RBC 3.07 L (3.65-5.03) M/mm3 Hgb 8.0 L (11.8-15.2) gm/dl Hct 24.3 L (35.5-45.6) % MCV 79 L (84-94) fl MCH 26 L (28-32) pg RDW 16.4 H (13.2-15.2) % Antithrombin III Ag 67 L (80-120) % Creatinine 0.7 L (0.8-1.5) mg/dL Calcium 8.3 L (8.4-10.2) mg/dL - Imaging and cardiology Other: report reviewed (Operative Report - 4cm yellow stone in bladder with L>R hydronephrosis)
[2016-10-15] MEDS: ROCEPHIN/NS 1 GM/50 ML 1 GM/50 ML BAG IV SCH (19:46)
--- NOTE | 2016-10-15 21:12 | Consultation ---
History of Present Illness - Reason for Consult Consult date: 10/15/16 - History of Present Illness Patient seen/examined, notes reviewed, 4cm bladder stone.open surgery rec .Patient may come off heparin in time enough for intended surgery, and get back following surgery. Past History Past Medical History: other (benign prostate hypertrophy) Past Surgical History: No surgical history Social history: single. denies: smoking, alcohol abuse, prescription drug abuse Family history: hypertension. denies: cancer Medications and Allergies Allergies Allergy/AdvReac Type Severity Reaction Status Date / Time No Known Allergies Allergy Verified 10/07/16 20:36 Home Medications Medication Instructions Recorded Confirmed Last Taken Type No Known Home Medications [No 10/09/16 10/09/16 Unknown History Reported Home Medications] Active Meds: Active Medications Acetaminophen (Tylenol) 650 mg PO Q4H PRN PRN Reason: Pain MILD(1-3)/Fever >100.5/THOMAS Last Admin: 10/10/16 03:12 Dose: 650 mg Albuterol (Proventil) 2.5 mg IH Q4HRT PRN PRN Reason: Shortness Of Breath Amlodipine Besylate (Norvasc) 5 mg PO QDAY JÚNIOR Last Admin: 10/15/16 10:19 Dose: Not Given Sodium Chloride (Nacl 0.9% 1000 Ml) 1,000 mls @ 50 mls/hr IV DIRECT JÚNIOR Last Admin: 10/15/16 11:56 Dose: 50 mls/hr Heparin Sodium/Sodium Chloride (Heparin/ 0.45% Nacl-25,000 Unit/500 Ml) 25,000 unit in 500 mls @ 21 mls/hr IV TITR JÚNIOR; 1,050 UNITS/HR PRN Reason: Protocol Last Admin: 10/15/16 10:16 Dose: 1,800 units/hr, 36 mls/hr Ceftriaxone Sodium (Rocephin/Ns 1 Gm/50 Ml) 1 gm in 50 mls @ 100 mls/hr IV Q24HR JÚNIOR PRN Reason: Protocol Stop: 10/22/16 17:59 Last Admin: 10/15/16 19:46 Dose: 100 mls/hr Loperamide HCl (Imodium) 2 mg PO Q2H PRN PRN Reason: Diarrhea Last Admin: 10/14/16 12:18 Dose: 2 mg Morphine Sulfate (Morphine) 2 mg IV Q4H PRN PRN Reason: Pain, Moderate (4-6) Last Admin: 10/09/16 13:08 Dose: 2 mg Ondansetron HCl (Zofran) 4 mg IV Q8H PRN PRN Reason: N/V unrelieved by Gerardo Review of Systems Constitutional: chronic pain Genitourinary Male: hematuria, other (bladder stone) Exam - Constitutional Vitals: Temp Pulse Resp BP Pulse Ox 98.0 F 73 20 125/67 95 10/15/16 16:28 10/15/16 16:28 10/15/16 16:28 10/15/16 16:28 10/15/16 16:28 General appearance: Present: mild distress - EENT Eyes: Present: PERRL ENT: hearing intact, clear oral mucosa - Neck Neck: Present: supple, normal ROM - Respiratory Respiratory effort: normal Respiratory: bilateral: CTA - Cardiovascular Heart Sounds: Present: S1 & S2. Absent: rub, click - Extremities Extremities: pulses symmetrical, No edema Peripheral Pulses: within normal limits - Abdominal General gastrointestinal: Present: soft, non-tender, non-distended, normal bowel sounds Male genitourinary: Present: deferred - Rectal Rectal Exam: deferred - Integumentary Integumentary: Present: clear, warm, dry - Musculoskeletal Musculoskeletal: gait normal, strength equal bilaterally - Psychiatric Psychiatric: appropriate mood/affect, intact judgment & insight - Neurologic Neurologic: CNII-XII intact, moves all extremities Results - Labs CBC & Chem 7: 10/15/16 05:52 10/15/16 05:52 Labs: Abnormal lab results 10/11/16 10/15/16 10/15/16 Range/Units 10:56 05:52 05:52 WBC 12.6 H (4.5-11.0) K/mm3 RBC 3.07 L (3.65-5.03) M/mm3 Hgb 8.0 L (11.8-15.2) gm/dl Hct 24.3 L (35.5-45.6) % MCV 79 L (84-94) fl MCH 26 L (28-32) pg RDW 16.4 H (13.2-15.2) % Antithrombin III Ag 67 L (80-120) % Creatinine 0.7 L (0.8-1.5) mg/dL Calcium 8.3 L (8.4-10.2) mg/dL Assessment and Plan - Patient Problems (1) Abdominal pain, acute, bilateral lower quadrant Current Visit: Yes Status: Acute Plan to address problem: This is due to the mass effect. improved as per patient. Patient now have portal vein thrombosis. and will continue anticoagulation. As above , until near surgery time, ie 6hrs prior. s/p procedure, needs open surgery as per service. (2) Anemia Current Visit: Yes Status: Acute Qualifiers: Anemia type: iron deficiency Iron deficiency anemia type: chronic blood loss Vitamin B12 deficiency anemia type: V Folate deficiency anemia type: F Bone marrow failure anemia type: B Hemolytic anemia type: H Other causes of anemia: O Chronic kidney disease stage: C Qualified Code(s): D50.0 - Iron deficiency anemia secondary to blood loss (chronic) Plan to address problem: Replacement when indicated. better post transfusion. stable at this time. (3) Mass of colon Current Visit: Yes Status: Acute Plan to address problem: await colonoscopy with tissue bx, then path report. await bladder procedure. This turns out to be a large bladder stone. (4) Hypercoagulable state Current Visit: Yes Status: Acute Plan to address problem: continue with anticoag, except for surgery.
[2016-10-16] MEDS: HEPARIN/ 0.45% NACL-25,000 UNIT/500 ML 25,000 UNIT/500 ML BAG IV SCH ×2 (05:17→20:18)
[2016-10-16 06:38] LABS: Hematocrit 27.1 % (35.5-45.6); Hemoglobin 8.5 gm/dl (11.8-15.2)
[2016-10-16] MEDS: MORPHINE IV PRN ×2 (09:10→20:17)
[2016-10-16] MEDS: ROCEPHIN/NS 1 GM/50 ML 1 GM/50 ML BAG IV SCH (09:10)
[2016-10-16] MEDS: NORVASC PO SCH (09:17)
[2016-10-16] MEDS: IMODIUM PO PRN ×2 (09:17→18:55)
--- NOTE | 2016-10-16 12:06 | Progress Note ---
Assessment and Plan - Patient Problems (1) Abscess, bladder Current Visit: Yes Status: Acute Plan to address problem: 1. Continue Rocephin while inpatient, then change to Levaquin (NO CIPRO SUBSTITUTION) 750mg PO daily through ~2016. 2. I will see patient on an as-needed basis. (2) Mass of colon Current Visit: Yes Status: Acute Plan to address problem: Anticipated lithotripsy later this week. Subjective Date of service: 10/16/16 Principal diagnosis: Pelvic Abscess/ Mass; Venous Thromboses Interval history: No new events. Remains afebrile, stable. Objective - Constitutional Vitals: Vital Signs Temp Pulse Resp BP Pulse Ox 99.2 F 78 18 131/78 99 10/16/16 08:00 10/16/16 09:17 10/16/16 08:00 10/16/16 09:17 10/16/16 08:00 Temperature -Last 24 Hours Temperature 99.2 F Temperature 97.5 F Temperature 98.8 F Temperature 97.7 F Temperature 98.0 F Temperature 98 F Temperature 98 F General appearance: Present: no acute distress - EENT Eyes: no scleral icterus - Respiratory Respiratory effort: normal Respiratory: bilateral: CTA - Cardiovascular Rhythm: regular Heart Sounds: Present: S1 & S2 Extremities: No edema - Gastrointestinal General gastrointestinal: Present: soft, non-distended - Integumentary Integumentary: clear, no jaundice - Psychiatric Psychiatric: appropriate mood/affect - Labs CBC & Chem 7: 10/16/16 05:36 10/15/16 05:52 Labs: Abnormal lab results 10/16/16 Range/Units 05:36 Hgb 8.5 L (11.8-15.2) gm/dl Hct 27.1 L (35.5-45.6) % Microbiology 10/10/16 15:00 Abdomen AFB Smear Concentration - Final 10/10/16 15:00 Abdomen Anaerobic Culture - Final 10/08/16 15:52 Peripheral/Venous Blood Culture - Final NO GROWTH AFTER 5 DAYS 10/08/16 15:28 Peripheral/Venous Blood Culture - Final NO GROWTH AFTER 5 DAYS 10/10/16 15:00 Abdomen Surgical Culture - Final Beta Hemolytic Strep Group C
--- NOTE | 2016-10-16 13:19 | Progress Note ---
Assessment and Plan Pt status quo Cysto yest. 4 cm bladder stone. will require open extraction Abd soft. surgically stable would recommend midline exploration if surgery being contemplated on this admission so that rest of abd can be properly assessed. If not, consider referral to [facility] at [facility] for further eval & w/u Dr. Garibay will be covering ms thru Friday Selected Entries 10/15/16 10/15/16 10/16/16 00:00 06:47 08:00 Temperature 100.4 F H 99.2 F Pulse Rate 74 Respiratory 18 Rate Blood Pressure 143/87 10/16/16 09:17 Temperature Pulse Rate 78 Respiratory Rate Blood Pressure 131/78 Laboratory Tests 10/14/16 10/15/16 10/16/16 04:00 05:52 05:36 WBC 12.6 H Hgb 8.1 L 8.0 L 8.5 L Hct 24.6 L 24.3 L 27.1 L Objective Vital Signs - 12hr 10/16/16 10/16/16 10/16/16 04:25 08:00 09:17 Temperature 97.5 F L 99.2 F Pulse Rate 72 70 78 Respiratory 20 18 Rate Blood Pressure 149/87 148/81 131/78 O2 Sat by Pulse 97 99 Oximetry - Labs 10/16/16 05:36 10/15/16 05:52
--- NOTE | 2016-10-16 14:42 | Progress Note ---
Assessment and Plan Intra-abdominal mass with abdominal pain: - Drainage of abscess was done by interventional radiologist and about 25 mL of purulent fluid was drained. Drain was left in but removed on 10/14/16 - Patient was on IV antibiotic-Zosyn, but changed to recephin today - ID physician following Portal vein thrombosis. 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 Pelvic mass, suspected on admission - likely from bladder abscess - Oncology, surgery & urology following - cystoscopy showed 4 cm bladder stone, no mass - will follow recommendation from dr Riggs about further planning about open extraction of stone Sepsis of intra-abdominal origin. - continue iv abx. 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 Hemoglobin 8.5 today. May only transfuse if hemoglobin less than 7 or if there is active bleeding. DVT prophylaxis. On heparin. Subjective Date of service: 10/16/16 Principal diagnosis: Pelvic Abscess/ Mass; Venous Thromboses Interval history: Pt seen and examined s/p cystoscopy on 10/15/16 showed 4 cm bladder stone will need open extraction, waiting for further urology recommendation Objective - Exam Narrative Exam: Gen appearance: Not in acute distress, HEENT: Normocephalic, atraumatic Neck: Supple, no JVD Lungs: Clear to auscultation bilaterally, no crackles, or wheezes. Heart: S1 and S2 regular, no murmurs, no gallops, rub Abdomen : Soft, non-tender, non-distended, dressing over LLQ, at site of drain removal, normal bowel sounds Extremities :No edema, no clubbing or cyanosis Neuro: Awake, alert, oriented 3, normal speech, no focal neurological signs Psych: normal mood. - Constitutional Vitals: Vital Signs - 12hr 10/16/16 10/16/16 10/16/16 04:25 08:00 : Temperature 97.5 F L 99.2 F Pulse Rate 72 70 78 Respiratory 20 18 Rate Blood Pressure 149/87 148/81 131/78 O2 Sat by Pulse 97 99 Oximetry 10/16/16 13:00 Temperature 97.5 F L Pulse Rate 77 Respiratory 18 Rate Blood Pressure 148/80 O2 Sat by Pulse 98 Oximetry - Labs CBC & Chem 7: 10/16/16 05:36 10/15/16 05:52 Labs: Abnormal lab results 10/16/16 Range/Units 05:36 Hgb 8.5 L (11.8-15.2) gm/dl Hct 27.1 L (35.5-45.6) %
--- NOTE | 2016-10-16 18:18 | Progress Note ---
Subjective Principal diagnosis: Pelvic Abscess/ Mass; Venous Thromboses Interval history: PROCEDURE PERFORMED BY DR. HOLLAND 1. CT guided placement of a 17 gauge coaxial needle into the left ileopsoas lesion 2. Aspiration of purulent material 61 YO Male with No PMH presents to ED for evaluation. Pt states that he has experienced abdominal pain for the past 3 weeks with worsening symptoms over the past 1 day, as well as loose watery stools over the past 1 week. Pt acknowledges 15 lbs unintentional weight loss, weakness, subjective fever, and night sweats. Pt states pain in 10/10, worsened with stool, constant, nonradiating, generalized, throbbing in nature. Pt denies ingestion of food or water from new or different sources, blood in stool, or constipation nurse at bedside colonoscopy & bx taken CTAP pelvic mass abd - slightly distended bennett placed by me A/P LARGE BLADDER STONE VOIDING WELL OK TO VT HOME FROM STANDPOINT CLEAR PELVIC INFECTION OPEN BLADDER STONE REMOVAL IN SEVERAL WEEK (WILL NEED OUTPT MANAGEMENT OF BLOODTHINNERS) Objective - Constitutional Vitals: Vital Signs - 12hr 10/16/16 10/16/16 10/16/16 08:00 09: 13:00 Temperature 99.2 F 97.5 F L Pulse Rate 70 78 77 Respiratory 18 18 Rate Blood Pressure 148/81 131/78 148/80 O2 Sat by Pulse 99 98 Oximetry 10/16/16 16:00 Temperature 98.4 F Pulse Rate 71 Respiratory 18 Rate Blood Pressure 134/80 O2 Sat by Pulse 96 Oximetry - Labs CBC & Chem 7: 10/16/16 05:36 10/15/16 05:52 Labs: Abnormal lab results 10/11/16 10/16/16 Range/Units 16:42 05:36 Hgb 8.5 L (11.8-15.2) gm/dl Hct 27.1 L (35.5-45.6) % Hep Bs Antibody, Quant <5 L (>=10) mIU/mL
[2016-10-16] MEDS: NACL 0.9% 1000 ML 1,000 ML IV SCH (18:24)
--- NOTE | 2016-10-16 21:56 | Consultation ---
History of Present Illness - Reason for Consult Consult date: 10/16/16 - History of Present Illness Patient seen/examined, record/notes/labs reviewed, case d/w patient. Open surgery differed until out patient management of cougs.He will then need to go home on oral anticoagulation. Past History Past Medical History: other (benign prostate hypertrophy) Past Surgical History: No surgical history Social history: single. denies: smoking, alcohol abuse, prescription drug abuse Family history: hypertension. denies: cancer Medications and Allergies Allergies Allergy/AdvReac Type Severity Reaction Status Date / Time No Known Allergies Allergy Verified 10/07/16 20:36 Home Medications Medication Instructions Recorded Confirmed Last Taken Type No Known Home Medications [No 10/09/16 10/09/16 Unknown History Reported Home Medications] Active Meds: Active Medications Acetaminophen (Tylenol) 650 mg PO Q4H PRN PRN Reason: Pain MILD(1-3)/Fever >100.5/THOMAS Last Admin: 10/10/16 03:12 Dose: 650 mg Albuterol (Proventil) 2.5 mg IH Q4HRT PRN PRN Reason: Shortness Of Breath Amlodipine Besylate (Norvasc) 5 mg PO QDAY JÚNIOR Last Admin: 10/16/16 09:17 Dose: 5 mg Sodium Chloride (Nacl 0.9% 1000 Ml) 1,000 mls @ 50 mls/hr IV DIRECT JÚNIOR Last Admin: 10/16/16 18:24 Dose: 50 mls/hr Heparin Sodium/Sodium Chloride (Heparin/ 0.45% Nacl-25,000 Unit/500 Ml) 25,000 unit in 500 mls @ 21 mls/hr IV TITR JÚNIOR; 1,050 UNITS/HR PRN Reason: Protocol Last Admin: 10/16/16 20:18 Dose: 1,800 units/hr, 36 mls/hr Ceftriaxone Sodium (Rocephin/Ns 1 Gm/50 Ml) 1 gm in 50 mls @ 100 mls/hr IV Q24HR JÚNIOR PRN Reason: Protocol Stop: 10/22/16 17:59 Last Admin: 10/16/16 09:10 Dose: 100 mls/hr Loperamide HCl (Imodium) 2 mg PO Q2H PRN PRN Reason: Diarrhea Last Admin: 10/16/16 18:55 Dose: 2 mg Morphine Sulfate (Morphine) 2 mg IV Q4H PRN PRN Reason: Pain, Moderate (4-6) Last Admin: 10/16/16 20:17 Dose: 2 mg Ondansetron HCl (Zofran) 4 mg IV Q8H PRN PRN Reason: N/V unrelieved by Reglan Last Admin: 10/16/16 20:17 Dose: 4 mg Exam - Constitutional Vitals: Temp Pulse Resp BP Pulse Ox 99.9 F H 78 18 137/79 96 10/16/16 20:15 10/16/16 20:15 10/16/16 20:17 10/16/16 20:15 10/16/16 20:15 General appearance: Present: no acute distress, well-nourished - EENT Eyes: Present: PERRL ENT: hearing intact, clear oral mucosa - Neck Neck: Present: supple, normal ROM - Respiratory Respiratory effort: normal Respiratory: bilateral: CTA - Cardiovascular Heart Sounds: Present: S1 & S2. Absent: rub, click - Extremities Extremities: pulses symmetrical, No edema Peripheral Pulses: within normal limits - Abdominal General gastrointestinal: Present: soft, non-tender, non-distended, normal bowel sounds Male genitourinary: Present: deferred - Rectal Rectal Exam: deferred - Integumentary Integumentary: Present: clear, warm, dry - Musculoskeletal Musculoskeletal: gait normal, strength equal bilaterally - Psychiatric Psychiatric: appropriate mood/affect, intact judgment & insight - Neurologic Neurologic: CNII-XII intact, moves all extremities Results - Labs CBC & Chem 7: 10/16/16 05:36 10/15/16 05:52 Labs: Abnormal lab results 10/11/16 10/16/16 Range/Units 16:42 05:36 Hgb 8.5 L (11.8-15.2) gm/dl Hct 27.1 L (35.5-45.6) % Hep Bs Antibody, Quant <5 L (>=10) mIU/mL Assessment and Plan - Patient Problems (1) Abdominal pain, acute, bilateral lower quadrant Current Visit: Yes Status: Acute Plan to address problem: This is due to the mass effect. improved as per patient. Patient now have portal vein thrombosis. and will continue anticoagulation. As above , until near surgery time, ie 6hrs prior. s/p procedure, needs open surgery as per service. deffered till later after out patient couag management, (2) Anemia Current Visit: Yes Status: Acute Qualifiers: Anemia type: iron deficiency Iron deficiency anemia type: chronic blood loss Vitamin B12 deficiency anemia type: V Folate deficiency anemia type: F Bone marrow failure anemia type: B Hemolytic anemia type: H Other causes of anemia: O Chronic kidney disease stage: C Qualified Code(s): D50.0 - Iron deficiency anemia secondary to blood loss (chronic) Plan to address problem: Replacement when indicated. better post transfusion. stable at this time. (3) Mass of colon Current Visit: Yes Status: Acute Plan to address problem: await colonoscopy with tissue bx, then path report. await bladder procedure. This turns out to be a large bladder stone. (4) Hypercoagulable state Current Visit: Yes Status: Acute Plan to address problem: continue with anticoag, except for surgery. He will get out patient anti coagulation, before open surgery ,as preferred by the surgeon.
[2016-10-17] MEDS: HEPARIN/ 0.45% NACL-25,000 UNIT/500 ML 25,000 UNIT/500 ML BAG IV SCH (09:01)
[2016-10-17] MEDS: ROCEPHIN/NS 1 GM/50 ML 1 GM/50 ML BAG IV SCH (09:05)
[2016-10-17] MEDS: NORVASC PO SCH (09:09)
[2016-10-17] MEDS ORDERED: ELIQUIS PO SCH (10:00)
--- NOTE | 2016-10-17 10:02 | Discharge Summary ---
Providers - Providers Date of Admission: 10/08/16 00:12 Date of discharge: 10/17/16 Attending physician: NORA CARMONA 10/08/16 00:17 Consult to Physician [CONS] Routine Consulting Provider: WHIT PATINO Reason For Exam: colon cancer Place consult to:: GI/SACHIN TIRADO Notified:: SACHIN Phone number called:: IN HOUSE Was contact made?: Yes If yes, spoke with:: SACHIN Time called:: 09:08 10/08/16 11:44 Consult to Physician [CONS] Routine Consulting Provider: KATHY CHEEK Reason For Exam: possible colon cancer Place consult to:: oncology/hemotology Notified:: OFFICE Phone number called:: [phone] Was contact made?: Yes If yes, spoke with:: BRENDA MANNING Time called:: 12:29 10/08/16 13:37 Consult to Physician [CONS] Routine Consulting Provider: BRENDEN LUND Reason For Exam: pelvic mass Place consult to:: malignancy/DR. LUND Notified:: DR. LUND Phone number called:: [phone] Was contact made?: Yes If yes, spoke with:: DR. LUND Time called:: 14:20 Comment:: QUINCY NOTIFIED 10/09/16 11:46 Consult to Physician [CONS] Routine Consulting Provider: SELINA KHAN Reason For Exam: pus drainage in the rectosigmoid area Place consult to:: Dr Khan Notified:: Dr. Khan Was contact made?: Yes If yes, spoke with:: Dr. Khan Comment:: on colonoscopy. Pelvic mass on CT 10/09/16 16:33 Consult to Physician [CONS] Routine Consulting Provider: ALBERT HOLLAND Reason For Exam: CT guided biopsy large pelvic mass Place consult to:: dr. holland Notified:: answering service Phone number called:: [phone] Was contact made?: Yes If yes, spoke with:: gatito Time called:: 18:45 10/09/16 16:34 Consult to Physician [CONS] Routine Consulting Provider: SEJAL RIGGS Reason For Exam: large pelvic mass origin? Place consult to:: Dr. Riggs Notified:: Dr. Riggs Was contact made?: Yes 10/10/16 15:04 Consult to Physician [CONS] Routine Consulting Provider: NIDA LOVE Reason For Exam: pelvic abscess Place consult to:: ID/DR. ELENA ARREOLA Notified:: CELL (LEFT MESSAGE) Phone number called:: [phone] Was contact made?: No If yes, spoke with:: LEFT MESSAGE ON CELL Time called:: 15:26 Comment:: DEEP NOTIFIED 10/12/16 09:12 Physical Therapy Evaluation and Treat [CONS] Routine Comment: Reason For Exam: generalized weakness Primary care physician: [employer] Hospitalization Condition: Serious Pertinent studies: Abdominal US CT abdomen and pelvis 10/07/16, 10/12/16 CT guided abdominal biopsy/drainage Retrograde pyelogram Hospital course: Patient is a 61 y/o male who presented to the ER with abdominal pain, loose stools, weakness, fever, night sweats, and 15lb unintentional wt loss x [address] scan abdomen/pelvis revealed a large pelvic mass (possible spread of bladder malignancy vs spread of colonic malignancy). He also admited intermittent BRBPR with BMs, fecal incontinence, and dysuria. Discharge diagnosis and management: Intra-abdominal abscess with abdominal pain: - suspected mass on admission based on Ct scan 10/07/16 - sigmoidscopy was done by GI which showed extrinsic compression in the recto- sigmoid colon with focal area of active drainage of pus seen into the colon - Drainage of abscess was done by interventional radiologist and about 25 mL of purulent fluid was drained. Drain was left in but removed on 10/14/16 - Patient was on IV antibiotic-Zosyn, but changed to recephin iv - ID physician was following - he was discharged home with levaquin Portal vein thrombosis. - seen on Ct scan 10/12/16 - was on heparin infusion, then discharged with eliquis Left external iliac vein thrombosis - managed with heparin drip. - - seen on Ct scan 10/12/16 Pelvic mass, suspected on admission - likely from bladder abscess - Oncology, surgery & urology was consulted - cystoscopy showed 4 cm bladder stone, no mass - Patient will f/u with dr. Gallegos in two weeks for further management Sepsis of intra-abdominal origin. - continued iv abx. ID Physician following - Levaquin on discharge to complete course Anemia secondary to anemia of chronic disease and chronic blood loss - Hemoglobin and hematocrit remained stable. Hypertension, controlled with Norvasc Disposition: DC-01 TO HOME OR SELFCARE Time spent for discharge: 32 minutes Core Measure Documentation - Palliative Care Palliative Care/ Comfort Measures: Not Applicable - Core Measures Any of the following diagnoses?: none Exam - Physical Exam Narrative exam: Gen appearance: Not in acute distress, HEENT: Normocephalic, atraumatic Neck: Supple, no JVD Lungs: Clear to auscultation bilaterally, no crackles, or wheezes. Heart: S1 and S2 regular, no murmurs, no gallops, rub Abdomen : Soft, non-tender, non-distended, dressing over LLQ, at site of drain removal, normal bowel sounds Extremities :No edema, no clubbing or cyanosis Neuro: Awake, alert, oriented 3, normal speech, no focal neurological signs Psych: normal mood. - Constitutional Vitals: Temp Pulse Resp BP Pulse Ox 97.8 F 65 20 133/85 96 10/17/16 08:00 10/17/16 08:00 10/17/16 08:00 10/17/16 09:09 10/17/16 08:00 Plan Activity: advance as tolerated Weight Bearing Status: Weight Bear as Tolerated Diet: regular Additional Instructions: f/u with Keely Kent in 2-4 weeks. F/u with Dr. lund in 2 weeks ([id number]) Follow up with: PRIMARY CARE, [Primary Care Provider] - 3-5 Days Prescriptions: amLODIPine [Norvasc] 5 mg PO QDAY #30 tablet Apixaban [Eliquis] 10 mg PO Q12HR #90 tablet Levofloxacin [Levaquin] 750 mg PO QDAY #8 tablet
[2016-10-17 15:19] VITALS: BP 149/88
--- NOTE | 2016-10-17 18:54 | Consultation ---
History of Present Illness - Reason for Consult Consult date: 10/17/16 - History of Present Illness Patient seen/examined, labs reviewed, , case d/w patient.He is scheduled for d/ c today. I have spoken to the primary team , to arrange for f/ups in the clinics for the patient. Past History Past Medical History: other (benign prostate hypertrophy) Past Surgical History: No surgical history Social history: single. denies: smoking, alcohol abuse, prescription drug abuse Family history: hypertension. denies: cancer Medications and Allergies Allergies Allergy/AdvReac Type Severity Reaction Status Date / Time No Known Allergies Allergy Verified 10/07/16 20:36 Home Medications Medication Instructions Recorded Confirmed Last Taken Type Apixaban [Eliquis] 10 mg PO Q12HR #90 tablet 10/17/16 Unknown Rx Levofloxacin [Levaquin] 750 mg PO QDAY #8 tablet 10/17/16 Unknown Rx amLODIPine [Norvasc] 5 mg PO QDAY #30 tablet 10/17/16 Unknown Rx Active Meds: Active Medications Acetaminophen (Tylenol) 650 mg PO Q4H PRN PRN Reason: Pain MILD(1-3)/Fever >100.5/THOMAS Last Admin: 10/10/16 03:12 Dose: 650 mg Albuterol (Proventil) 2.5 mg IH Q4HRT PRN PRN Reason: Shortness Of Breath Amlodipine Besylate (Norvasc) 5 mg PO QDAY JÚNIOR Last Admin: 10/17/16 09:09 Dose: 5 mg Apixaban (Eliquis) 10 mg PO Q12HR JÚNIOR PRN Reason: Protocol Last Admin: 10/17/16 12:22 Dose: 10 mg Sodium Chloride (Nacl 0.9% 1000 Ml) 1,000 mls @ 50 mls/hr IV DIRECT JÚNIOR Last Admin: 10/16/16 18:24 Dose: 50 mls/hr Ceftriaxone Sodium (Rocephin/Ns 1 Gm/50 Ml) 1 gm in 50 mls @ 100 mls/hr IV Q24HR JÚNIOR PRN Reason: Protocol Stop: 10/22/16 17:59 Last Admin: 10/17/16 09:05 Dose: 100 mls/hr Loperamide HCl (Imodium) 2 mg PO Q2H PRN PRN Reason: Diarrhea Last Admin: 10/16/16 18:55 Dose: 2 mg Morphine Sulfate (Morphine) 2 mg IV Q4H PRN PRN Reason: Pain, Moderate (4-6) Last Admin: 10/16/16 20:17 Dose: 2 mg Ondansetron HCl (Zofran) 4 mg IV Q8H PRN PRN Reason: N/V unrelieved by Reglan Last Admin: 10/16/16 20:17 Dose: 4 mg Review of Systems Constitutional: weight loss Exam - Constitutional Vitals: Temp Pulse Resp BP Pulse Ox 99.8 F H 75 20 149/88 97 10/17/16 15:18 10/17/16 15:18 10/17/16 15:18 10/17/16 15:18 10/17/16 15:18 General appearance: Present: no acute distress, well-nourished - EENT Eyes: Present: PERRL ENT: hearing intact, clear oral mucosa - Neck Neck: Present: supple, normal ROM - Respiratory Respiratory effort: normal Respiratory: bilateral: CTA - Cardiovascular Heart Sounds: Present: S1 & S2. Absent: rub, click - Extremities Extremities: pulses symmetrical, No edema Peripheral Pulses: within normal limits - Abdominal General gastrointestinal: Present: soft, non-tender, non-distended, normal bowel sounds Male genitourinary: Present: deferred - Rectal Rectal Exam: deferred - Integumentary Integumentary: Present: clear, warm, dry - Musculoskeletal Musculoskeletal: gait normal, strength equal bilaterally - Psychiatric Psychiatric: appropriate mood/affect, intact judgment & insight - Neurologic Neurologic: CNII-XII intact, moves all extremities Results - Labs CBC & Chem 7: 10/16/16 05:36 10/15/16 05:52 Assessment and Plan - Patient Problems (1) Abdominal pain, acute, bilateral lower quadrant Current Visit: Yes Status: Acute Plan to address problem: This is due to the mass effect. improved as per patient. Patient now have portal vein thrombosis. and will continue anticoagulation. As above , until near surgery time, ie 6hrs prior. s/p procedure, needs open surgery as per service. deffered till later after out patient couag management, (2) Anemia Current Visit: Yes Status: Acute Qualifiers: Anemia type: iron deficiency Iron deficiency anemia type: chronic blood loss Vitamin B12 deficiency anemia type: V Folate deficiency anemia type: F Bone marrow failure anemia type: B Hemolytic anemia type: H Other causes of anemia: O Chronic kidney disease stage: C Qualified Code(s): D50.0 - Iron deficiency anemia secondary to blood loss (chronic) Plan to address problem: Replacement when indicated. better post transfusion. stable at this time. (3) Mass of colon Current Visit: Yes Status: Acute Plan to address problem: await colonoscopy with tissue bx, then path report. await bladder procedure. This turns out to be a large bladder stone. (4) Hypercoagulable state Current Visit: Yes Status: Acute Plan to address problem: continue with anticoag, except for surgery. He will get out patient anti coagulation, before open surgery ,as preferred by the surgeon.
--- NOTE | 2016-10-25 15:36 | Cat Scan Report ---
EXAM: 1. CT guided placement of a 17 gauge coaxial needle into the left iliopsoas collection/lesion 2. Aspiration of purulent material from the left iliopsoas collection 3. Aborted left iliopsoas lesion biopsy 4. CT guided placement of an 8 Fr drain in the left iliopsoas abscess CLINICAL INDICATION: Left-sided iliopsoas lesion extending into the pelvis in a patient with possible underlying malignancy with request for biopsy. The patient also had purulent drainage in the colon noted on colonoscopy. Based on findings, biopsy or CT-guided drain placement would be considered. DATE: 10/10/16 WOOD TURNER: ALBERT HOLLAND MD MEDICATIONS: Conscious sedation using Versed and fentanyl was performed under guidance of radiologic nursing. Continuous cardiopulmonary monitoring was utilized. PROCEDURE: Following an explanation of the risks, benefits and alternatives; written informed consent was obtained. The patient was brought to the CT suite and placed in the supine position on the CT table. Manager Ob CT was performed of the pelvis. After determining the appropriate site, the skin was infiltrated with lidocaine and a finder needle was placed. Intermittent CT was performed until the desired position was identified. The 17 gauge coaxial needle was inserted into the left iliopsoas lesion . Overt purulent drainage was aspirated. Biopsy was aborted as there was no solid lesion to biopsy. Aspirated drainage was sent for cytology, surgical culture, fungal culture, AFB culture. J wire was then advanced through the needle and into the collection. The needle was exchanged for multiple dilators that were used to serially dilate over the wire. A 8 Fr APD drain was advanced over the wire and metal stiffener. The metal stiffener and wire were removed. Final CT scanning was performed. The pigtail was secured and aspirated until no more material could be aspirated. Sterile bandage was applied. Silk suture was used to secure the catheter. The patient tolerated the procedure well. There were no immediate postprocedural complications. FINDINGS: 1. Initial CT demonstrates a left iliopsoas lesion extending into the pelvis. There is a satisfactory window for CT drainage. This study was performed for localization purposes. Please see diagnostic quality CT scans for further evaluation of the lesions themselves. 2. Intermittent CT demonstrates the 17 gauge needle was placed into the left iliopsoas collection. 3. Wire is coiled in the left iliopsoas fluid collection. 4. Final CT documents placement of a 8 Fr drain in the left iliopsoas fluid collection. 5. A total of 25 mL of purulent material was aspirated through the drain and initial needle. IMPRESSION: Successful CT guided 8 drain placement in a fluid collection/abscess.
== END 2016-10-17 19:30 | disposition home or self-care (01) | DRG 853 ==
LOC: ED 15:36 → 3A 10-08 00:12
PROVIDERS: ADMIT Internal Medicine; ATTEND Internal Medicine
PROC: 0DBP8ZX Excision of Rectum, Via Natural or Artificial Opening Endoscopic, Diagnostic (ICD-10-PCS; 2016-10-09)
PROC: 0DBN8ZX Excision of Sigmoid Colon, Via Natural or Artificial Opening Endoscopic, Diagnostic (ICD-10-PCS; 2016-10-09)
PROC: 30233N1 Transfusion of Nonautologous Red Blood Cells into Peripheral Vein, Percutaneous Approach (ICD-10-PCS; 2016-10-09)
PROC: 0J9C00Z Drainage of Pelvic Region Subcutaneous Tissue and Fascia with Drainage Device, Open Approach (ICD-10-PCS; 2016-10-10)
PROC: 0K9P30Z Drainage of Left Hip Muscle with Drainage Device, Percutaneous Approach (ICD-10-PCS; 2016-10-10)
PROC: 0WPG33Z Removal of Infusion Device from Peritoneal Cavity, Percutaneous Approach (ICD-10-PCS; principal; 2016-10-14)
PROC: BT14ZZZ Fluoroscopy of Kidneys, Ureters and Bladder (ICD-10-PCS; 2016-10-15)
PROC: 0TJB8ZZ Inspection of Bladder, Via Natural or Artificial Opening Endoscopic (ICD-10-PCS; 2016-10-15)
DX: A41.9 Sepsis, unspecified organism (principal); K65.9 Peritonitis, unspecified; I82.0 Budd-Chiari syndrome; I81 Portal vein thrombosis; K65.1 Peritoneal abscess; C18.9 Malignant neoplasm of colon, unspecified; I82.422 Acute embolism and thrombosis of left iliac vein; N17.9 Acute kidney failure, unspecified; D68.59 Other primary thrombophilia; K92.2 Gastrointestinal hemorrhage, unspecified; N13.2 Hydronephrosis with renal and ureteral calculous obstruction; E86.0 Dehydration; D50.0 Iron deficiency anemia secondary to blood loss (chronic); D63.8 Anemia in other chronic diseases classified elsewhere; N30.81 Other cystitis with hematuria; N21.0 Calculus in bladder; Z80.42 Family history of malignant neoplasm of prostate; Z82.49 Family history of ischemic heart disease and other diseases of the circulatory system; Z87.891 Personal history of nicotine dependence
CPT/HCPCS: 10160; 36415; 49424; 74177; 74181; 74420; 76705; 77012; 80048; 80053; 81001; 82140; 82232; 82378; 82728; 83516; 83550; 83615; 83690; 84439; 84443; 85007; 85014; 85018; 85025; 85027; 85049; 85220; 85301; 85305; 85307; 85520; 85610; 85613; 85652; 85730; 86705; 86706; 86803; 86850; 86900; 86901; 86920; 87040; 87075; 87102; 87116; 87220; 87493; 87591; 87806; 88305; 94760; 96361; 96374; 96375; 99285; A4217; C1758; C1769; J0696; J1644; J1885; J1956; J2250; J2270; J2405; J2543; J2704; J3010; J3370; J3480; J7030; J7040; J7050; P9016; Q9967